=== PATIENT | female | born 1955 | race Caucasian/White ===

== ENCOUNTER → 2016-09-30 | Outpatient (CLI) | payer MEDICARE, MEDICAID ==
[~2016-09-30] MED LIST: ACET-789 PO; ALBU8.5H4 IH; ALBU8.5HRX IH; ARIP10TA2 PO; ARPZ30T PO; ASP81CT PO; BACL10TA PO; BACL20TA PO; BISA-65 PO; BPR150TCR PO; CEFD300C3 PO; CEPH500C PO; DEXL30CA2 PO; DEXL60CA5 PO; DOXY-233 PO; ESTR0.5T PO; ESTR1TAB24 PO; FINA5TAB6 PO; Fluticasone Propionate NS; GABA300C PO; GBPN300C PO; GFN600TCR PO; GUAI-653 PO; HCT25T PO; HYDR-2889 PO; LEVO75TA6 PO; LVT.025T PO; LVT.05T PO; Loratadine PO; MECL25TA56 PO; MELO-195 PO; METH4TAB PO; MONT10TA21 PO; Montelukast Sodium PO; NF-ESOM40C PO; PALI3TAB2 PO; POLY17PO23 GT; POLY17PO23 PO; PRD50T PO; Prednisone PO; QTP200T PO; QUET400T PO; QUET400T12 PO; SCR1T1 PO; SPIR50TA27 PO; SUCR1ORA PO; SUCR1TAB PO; SULF-222 PO; TRAM50TA2; ZINC50TA49 PO
[2016-09-30 16:36] LABS: CALCIUM 9.9 MG/DL (8.5-10.1); CREATININE SERUM 1.24 MG/DL (0.60-1.30); POTASSIUM 3.9 MMOL/L (3.6-5.0)
== END ==
LOC: LAB 16:05
PROVIDERS: ATTEND Internal Medicine Endocrinology, Diabetes & Metabolism
DX: E22.1 Hyperprolactinemia (principal)
CPT/HCPCS: 36415; 80048

== ENCOUNTER → 2016-10-27 | Outpatient (CLI) | payer MEDICARE, MEDICAID ==
[~2016-10-27] MED LIST changes: +GADOBUTROL 7.5 MMOL/7.5 ML (GADAVIST) VIAL IV ONE
--- NOTE | 2016-10-27 16:06 | Diagnostic Imaging Report ---
TECHNIQUE: Multiplanar, multisequence MRI of the brain performed without and with intravenous contrast with thin section through the pituitary gland and without intravenous contrast. INDICATION: Pituitary microadenoma. COMPARISON: 12/24/2015. 5 mL of Gadavist is administered intravenously. FINDINGS: There is no diffusion restriction to suggest an acute infarct or other diffusion abnormality. There is periventricular T2 hyperintense signal seen on FLAIR and T2-weighted images generally similar to 12/24/2015 exam with no associated mass effect or postcontrast enhancement suggestive of chronic microvascular ischemic changes. There is no hydrocephalus. No extra-axial fluid collection seen. The brainstem and cerebellum appear unremarkable. The internal auditory canals and inner ear structures appear symmetric. Thin images through the pituitary demonstrate normal size of the pituitary gland with no expansion of the sella turcica. The pituitary stalk is normal in caliber. The central vascular flow-voids appear grossly unremarkable. Although the pituitary gland is not enlarged and no evidence of macroadenoma is seen, there is convexity of its superior margin on both sides, particularly posteriorly with hypoenhancing foci measuring 5 mm such as seen on image 5, series 1302, similar to the previous exam. This could relate to small microadenomas. IMPRESSION: Similar to the prior exam, there is slight fullness along the sides of the pituitary gland posteriorly with associated hypoenhancement seen on the dynamic phase imaging suggestive of microadenomas. Dictated by: Dictated on workstation # [id number]
== END ==
LOC: RAD 13:50
PROVIDERS: ATTEND Internal Medicine Endocrinology, Diabetes & Metabolism
DX: D35.2 Benign neoplasm of pituitary gland (principal)
CPT/HCPCS: 70553

== ENCOUNTER 2016-12-08 07:15 | Emergency (ER) | payer MEDICARE, MEDICAID ==
[~2016-12-08] VITALS: Ht 162.6 cm; Wt 78.9 kg
[~2016-12-08 07:15] MED LIST changes: -GADOBUTROL 7.5 MMOL/7.5 ML (GADAVIST) VIAL IV ONE
[2016-12-08] MEDS ORDERED: LATUDA (07:47)
[2016-12-08] MEDS ORDERED: LIRA0.6P SQ (07:47)
[2016-12-08 07:51] LABS: BILIRUBIN,URINE NEGATIVE (NEGATIVE); KETONES,URINE NEGATIVE (NEGATIVE); LEUKOCYTE ESTERASE ,URINE NEGATIVE (NEGATIVE); NITRITE,URINE NEGATIVE (NEGATIVE); PH,URINE 8 (5-9); PROTEIN,URINE NEGATIVE (NEGATIVE); UROBILINOGEN,URINE NORMAL (NORMAL)
[2016-12-08 08:06] LABS: BASOPHILS % (AUTO) 0 % (0-10); EOSINOPHILS # (AUTO) 0.2 10^3/uL (0.0-0.3); EOSINOPHILS % (AUTO) 4 % (0-10); LYMPHOCYTES # (AUTO) 1.7 X 10^3 (1.0-4.0); LYMPHOCYTES % (AUTO) 30 % (12-44); MEAN CORPUSCULAR HEMOGLOBIN 32 PG (25-34); MEAN CORPUSCULAR HGB CONC 33 G/DL (32-36); MEAN CORPUSCULAR VOLUME 97 FL (80-99); MEAN PLATELET VOLUME 11.2 FL (7.4-10.4); MONOCYTES # (AUTO) 0.5 X 10^3 (0.0-1.0); MONOCYTES % (AUTO) 8 % (0-12); NEUTROPHILS # (AUTO) 3.4 X 10^3 (1.8-7.8); NEUTROPHILS % (AUTO) 58 % (42-75); PLATELET COUNT 154 10^3/uL (130-400); RED BLOOD COUNT 4.25 10^6/uL (4.35-5.85); RED CELL DISTRIBUTION WIDTH 13.7 % (10.0-14.5); WHITE BLOOD COUNT 5.8 10^3/uL (4.3-11.0)
[2016-12-08 08:28] LABS: ALBUMIN 4.1 GM/DL (3.2-4.5); BILIRUBIN,TOTAL 0.4 MG/DL (0.1-1.0); CALCIUM 8.8 MG/DL (8.5-10.1); CREATININE SERUM 1.09 MG/DL (0.60-1.30); TOTAL PROTEIN 6.6 GM/DL (6.4-8.2)
--- NOTE | 2016-12-08 09:19 | ED General ---
General Chief Complaint: General Problems/Pain Stated Complaint: WEAKNESS/SHAKEY/VOMITING 4 DAYS AGO/FATIGUE Nursing Triage Note: PT STATES SHE THINKS HER IS TRYING TO POISON HER. STATES SHE HAS NOT BEEN FEELING RIGHT FOR ABOUT 8 MONTHS, EVERY SO OFTEN SHE GETS SICK THROWING UP AND IS IN BED FOR DAYS. LATELY HER MIND IS SLIPPING AND SHE CANNOT PUT WORDS TOGETHER AND CANNNOT DO SIMPLE TASKS. Nursing Sepsis Screen: No Definite Risk Source of Information: Patient Exam Limitations: No Limitations History of Present Illness Time Seen by Provider: 09:14 Initial Comments The patient is a 61-year-old white female who reports that for the last 6-8 months she has been feeling apathetic, weak, shaky. She states that she has a difficult time getting up in the morning. She states that prior to this time she had normally got up at 430 or 5 o'clock and clean the house and was very active. She believes that her is trying to poison her. She saw Dr. Savage her psychiatrist at about the time the symptoms began. She did not tell him that she was having these problems. She takes a number of potent psychiatric medications. She states that there has been no change in her medications since well before the symptoms began. She also states that she had an MRI of the head last week. This turns out to have been done on October 27 and was a follow-up on a previous MRI which suggested a microadenoma of the pituitary gland. By my interpretation of the results it appears that it is still only a possible microadenoma and has not increased in size in the past year. Timing/Duration: Other (6-8 months) Associated Systoms: Malaise, Weakness Allergies and Home Medications Allergies Coded Allergies: cephalexin (Unverified Allergy, Unknown, 12/03/14) povidone-iodine (Unverified Allergy, Unknown, 07/15/10) soap (Unverified Allergy, Unknown, 07/15/10) Home Medications Acetaminophen With Codeine 1 Each Tablet, 1 TAB PO QID PRN for COUGH, (Reported) Bisacodyl 5 Mg Tablet., 5 MG PO BID, #6 Prescribed by: CHIQUITA ZAPATA on 12/10/14 1816 Bupropion Hcl 150 Mg Tablet, 1 TAB PO DAILY, #30 (Reported) Dexlansoprazole 60 Mg Cap, 60 MG PO DAILY, (Reported) Estradiol 1 Mg Tablet, 0.5 MG PO DAILY, (Reported) Gabapentin 300 Mg Cap, 900 MG PO HS, (Reported) take 3 (300 mg) capsules at bedtime Gabapentin 300 Mg Capsule, 1 EACH PO TID, (Reported) Levothyroxine Sodium 75 Mcg Tablet, 75 MCG PO DAILY, (Reported) Liraglutide 0.6 Mg/0.1 Ml Pen.injctr, 0.6 MG SQ, (Reported) Meloxicam 15 Mg Tablet, 15 MG PO BID, (Reported) Montelukast Sodium 10 Mg Tablet, 10 MG PO, (Reported) Paliperidone 3 Mg Tab.osm.24, 3 MG PO MONTHLY, (Reported) Polyethylene Glycol 17 Gm Pack, 17 GM PO DAILY, #0 Prescribed by: CATHERINE ROSS on 10/06/14 0131 Quetiapine Fumarate 400 Mg Tablet, 400 MG PO HS, (Reported) Sucralfate 1 G Tablet, 1 G PO QID, (Reported) Tramadol HCl 50 Mg Tablet, #30 (Reported) [Latuda] , (Reported) Constitutional: see HPI EENTM: no symptoms reported, other (dry mouth) Respiratory: no symptoms reported Cardiovascular: no symptoms reported Gastrointestinal: no symptoms reported Genitourinary: no symptoms reported Musculoskeletal: no symptoms reported Skin: no symptoms reported Psychiatric/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: See HPI, Depressed, Weakness Hematologic/Lymphatic: No Symptoms Reported Immunological/Allergic: no symptoms reported Past Mflvpav-Inueji-Vzvtms Hx Patient Social History Alcohol Use: Denies Use Recreational Drug Use: No Smoking Status: Current Everyday Smoker Type Used: Cigarettes Recent Foreign Travel: No Contact w/Someone Who Travel: No Recent Infectious Disease Expo: No Recent Hopitalizations: No Immunizations Up To Date Tetanus Booster (TDap): More than 5yrs Date of Pneumonia Vaccine: May 05, 2013 Date of Influenza Vaccine: Feb 02, 2014 Seasonal Allergies Seasonal Allergies: No Surgeries HX Surgeries: Yes Surgeries: Bladder Surgery, Breast, Hysterectomy Respiratory Hx Respiratory Disorders: Yes ("MIGHT HAVE COPD") Respiratory Disorders: COPD Cardiovascular Hx Cardiac Disorders: Yes Cardiac Disorders: Hypertension 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 Hx 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 Disorders: Yes (ELECTRICAL SHOCK TREATMENT ON BRAIN) 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 Genitourinary Hx Genitourinary Disorders: No Gastrointestinal Hx Gastrointestinal Disorders: Yes Gastrointestinal Disorders: Gastroesophageal Reflux, Chronic Constipation Musculoskeletal Hx Musculoskeletal Disorders: Yes Musculoskeletal Disorders: Fibromyalgia Endocrine Hx Endocrine Disorders: Yes Endocrine Disorders: Hypothyroidsim HEENT HX ENT Disorders: Yes HEENT Disorders: Cataract Cancer Hx Cancer: No Psychosocial Hx Psychiatric Problems: Yes Behavioral Health Disorders: Schizophrenia, Depression Integumentary HX Skin/Integumentary Disorder: No Blood Transfusions Hx Blood Disorders: No Family Medical History Significant Family History: No Pertinent Family Hx Family Medial History: CANCER G8 SISTER (DOESN'T KNOW WHAT TYPE OF CANCER) Diabetes mellitus 19 MOTHER STROKE G8 BROTHER Physical Exam Vital Signs Vital Sign - Last 12Hours 12/08/16 07:32 Temp 96.5 Pulse 106 Resp 18 B/P (MAP) 148/83 Pulse Ox 97 O2 Delivery Room Air Capillary Refill : Less Than 3 Seconds General Appearance: Other (flat affect) Eyes: Bilateral Eye Normal Inspection HEENT: Normal ENT Inspection, Other (dry shiny tongue which is bright red from red Marcus-Aid) Neck: Normal Inspection Respiratory: Chest Non Tender, Lungs Clear, Normal Breath Sounds, No Accessory Muscle Use, No Respiratory Distress Cardiovascular: Regular Rate, Rhythm, No Edema, No Gallop, No JVD, No Murmur, Normal Peripheral Pulses Gastrointestinal: Normal Bowel Sounds, No Organomegaly, No Pulsatile Mass, Non Tender, Soft Back: Normal Inspection, No CVA Tenderness, No Vertebral Tenderness Extremity: Normal Capillary Refill, Normal Inspection, Normal Range of Motion, Non Tender, No Calf Tenderness, No Pedal Edema Neurologic/Psychiatric: Alert, Oriented x3, No Motor/Sensory Deficits, Normal Mood/Affect Skin: Normal Color, Warm/Dry Lymphatic: No Adenopathy Progress/Results/Core Measures Results/Orders Lab Results Laboratory Tests Test 12/08/16 07:30 12/08/16 07:55 Range/Units Urine Color YELLOW Urine Clarity CLEAR Urine pH 8 5-9 Urine Specific [place] 1.010 L 1.016-1.022 Urine Protein NEGATIVE NEGATIVE Urine Glucose (UA) NEGATIVE NEGATIVE Urine Ketones NEGATIVE NEGATIVE Urine Nitrite NEGATIVE NEGATIVE Urine Bilirubin NEGATIVE NEGATIVE Urine Urobilinogen NORMAL NORMAL MG/DL Urine Leukocyte Esterase NEGATIVE NEGATIVE Urine RBC (Auto) NEGATIVE NEGATIVE Urine RBC NONE /HPF Urine WBC NONE /HPF Urine Squamous Epithelial Cells 10-25 H /HPF Urine Crystals NONE /LPF Urine Bacteria TRACE /HPF Urine Casts NONE /LPF Urine Mucus NEGATIVE /LPF Urine Culture Indicated NO Urine Opiates Screen NEGATIVE NEGATIVE Urine Oxycodone Screen NEGATIVE NEGATIVE Urine Methadone Screen NEGATIVE NEGATIVE Urine Propoxyphene Screen NEGATIVE NEGATIVE Urine Barbiturates Screen NEGATIVE NEGATIVE Ur Tricyclic Antidepressants Screen POSITIVE H NEGATIVE Urine Phencyclidine Screen NEGATIVE NEGATIVE Urine Amphetamines Screen NEGATIVE NEGATIVE Urine Methamphetamines Screen NEGATIVE NEGATIVE Urine Benzodiazepines Screen NEGATIVE NEGATIVE Urine Cocaine Screen NEGATIVE NEGATIVE Urine Cannabinoids Screen NEGATIVE NEGATIVE White Blood Count 5.8 4.3-11.0 10^3/uL Red Blood Count 4.25 L 4.35-5.85 10^6/uL Hemoglobin 13.7 11.5-16.0 G/DL Hematocrit 41 35-52 % Mean Corpuscular Volume 97 80-99 FL Mean Corpuscular Hemoglobin 32 25-34 PG Mean Corpuscular Hemoglobin Concent 33 32-36 G/DL Red Cell Distribution Width 13.7 10.0-14.5 % Platelet Count 154 130-400 10^3/uL Mean Platelet Volume 11.2 H 7.4-10.4 FL Neutrophils (%) (Auto) 58 42-75 % Lymphocytes (%) (Auto) 30 12-44 % Monocytes (%) (Auto) 8 0-12 % Eosinophils (%) (Auto) 4 0-10 % Basophils (%) (Auto) 0 0-10 % Neutrophils # (Auto) 3.4 1.8-7.8 X 10^3 Lymphocytes # (Auto) 1.7 1.0-4.0 X 10^3 Monocytes # (Auto) 0.5 0.0-1.0 X 10^3 Eosinophils # (Auto) 0.2 0.0-0.3 10^3/uL Basophils # (Auto) 0.0 0.0-0.1 10^3/uL Sodium Level 137 135-145 MMOL/L Potassium Level 4.0 3.6-5.0 MMOL/L Chloride Level 101 98-107 MMOL/L Carbon Dioxide Level 24 21-32 MMOL/L Anion Gap 12 5-14 MMOL/L Blood Urea Nitrogen 10 7-18 MG/DL Creatinine 1.09 0.60-1.30 MG/DL Estimat Glomerular Filtration Rate 51 BUN/Creatinine Ratio 9 Glucose Level 90 70-105 MG/DL Calcium Level 8.8 8.5-10.1 MG/DL Total Bilirubin 0.4 0.1-1.0 MG/DL Aspartate Amino Transf (AST/SGOT) 26 5-34 U/L Alanine Aminotransferase (ALT/SGPT) 23 0-55 U/L Alkaline Phosphatase 78 40-136 U/L Total Protein 6.6 6.4-8.2 GM/DL Albumin 4.1 3.2-4.5 GM/DL My Orders Orders - HUSSAIN WEBBER MD Cbc With Automated Diff (12/08/16 07:27) Comprehensive Metabolic Panel (12/08/16 07:27) Ua Culture If Indicated (12/08/16 07:27) Drug Screen Stat (Urine) (12/08/16 08:01) Vital Signs/I&O Vital Sign - Last 12Hours 12/08/16 07:32 Temp 96.5 Pulse 106 Resp 18 B/P (MAP) 148/83 Pulse Ox 97 O2 Delivery Room Air Blood Pressure Mean: 104 Departure Communication Progress Notes Attempted to find someone to discuss today's problems and or have her be seen at mental health. There were no providers available. I then called Dr. Frank who allowed that she had been there last week and that he felt that the her schizophrenia may be uncontrolled again. This would seem to be likely by my discussion as well. Impression Impression: Primary Impression: mental health disorder Disposition: 01 HOME, SELF-CARE Condition: Stable/Unchanged Departure-Patient Inst. Decision time for Depature: 09:37 Referrals: JOHN FRANK DO (PCP/Family) Primary Care Physician Add. Discharge Instructions: All discharge instructions reviewed with patient and/or family. Voiced understanding. Call Dr. Frank's office to schedule a follow-up for next week. HUSSAIN WEBBER MD Dec 08, 2016 09:19
[2016-12-08 09:53] VITALS: BP 148/83
== END 2016-12-08 09:52 | disposition home or self-care (01) ==
LOC: EDUNIT# 07:15 → ER 07:20
DX: F99 Mental disorder, not otherwise specified (principal); K21.9 Gastro-esophageal reflux disease without esophagitis; M79.7 Fibromyalgia; E03.9 Hypothyroidism, unspecified; F17.210 Nicotine dependence, cigarettes, uncomplicated; Z79.899 Other long term (current) drug therapy
CPT/HCPCS: 36415; 80053; 80306; 81000; 85025; 99283

== ENCOUNTER 2017-06-19 10:58 | Emergency (ER) | payer MEDICARE, MEDICAID ==
[~2017-06-19] VITALS: Ht 160 cm; Wt 77.1 kg
[~2017-06-19 10:58] MED LIST changes: +LATUDA; +LIRA0.6P SQ
--- OUTSIDE RECORDS SUMMARY | 2017-06-19 11:07 | XMS REPORT | Continuity of Care Document ---
Author Author [facility] Organization [facility] Address Unknown Phone Unavailable Allergies Active Description Code Type Severity Reaction Onset Reported/Identified Relationship to Patient Clinical Status Yes povidone-iodine [id number] Drug Allergy Unknown N/A 07/15/2010 Yes Soap [id number] Drug Allergy Unknown N/A 07/15/2010 Yes cephalexin [id number] Drug Allergy Unknown N/A 12/03/2014 Medications There is no data. Problems Date Dx Coded Attending Type Code Diagnosis Diagnosed By 02/10/2012 Ot 780.50 02/10/2012 Ot 786.09 05/03/2012 Ot 719.45 05/03/2012 Ot 719.46 05/03/2012 Ot 723.1 05/03/2012 Ot V57.1 05/30/2012 Ot 719.45 05/30/2012 Ot 719.46 05/30/2012 Ot 723.1 05/30/2012 Ot V57.1 01/27/2013 JOHN FRANK DO Ot 244.9 01/27/2013 JOHN FRANK DO Ot 295.90 01/27/2013 JOHN FRANK DO Ot 305.1 01/27/2013 JOHN FRANK DO Ot 311 01/27/2013 JOHN FRANK DO Ot 401.9 01/27/2013 FRANKJOHN TORRES DO Ot 530.81 01/27/2013 FRANKJOHN TORRES DO Ot 729.1 01/27/2013 JOHN FRANK DO Ot 786.50 01/27/2013 JOHN FRANK DO Ot 911.4 01/27/2013 JOHN FRANK DO Ot E906.4 01/27/2013 JOHN FRANK DO Ot V04.81 04/08/2013 AYANNA SARKAR Ot 883.0 04/08/2013 AYANNA SARKAR Ot E000.8 04/08/2013 AYANNA SARKAR Ot E849.0 04/08/2013 AYANNA SARKAR Ot E920.8 04/08/2013 AYANNA SARKAR Ot V06.1 10/31/2013 FRANKJOHN TORRES DO Ot 799.3 10/31/2013 FRANK DO JOHN Prather Ot V57.1 03/26/2014 FRANK DO JOHN Yamilka Ot 786.09 06/03/2014 ALAN DO, TATA K Ot 276.51 06/03/2014 ALAN DO, TATA K Ot 276.9 06/03/2014 ALAN DO, TATA K Ot 491.21 06/03/2014 ALAN DO, TATA K Ot 593.9 06/03/2014 ALAN DO, TATA K Ot 786.2 06/03/2014 ALAN DO, TATA K Ot 977.9 06/03/2014 ALAN DO, TATA K Ot E849.0 06/03/2014 ALAN DO, TATA K Ot E858.9 07/23/2014 FRANK DO JOHN Prather Ot 780.09 07/23/2014 FRANK DO JOHN Yamilka Ot 794.09 07/23/2014 FRANK DO JOHN Yamilka Ot V76.12 07/23/2014 PARISH VALENCIA FACNAVIN FACP CCDS Ot 786.50 07/23/2014 YOSEF MOSLEY HEAVY FORGER HELPER Ot 786.2 07/23/2014 YOSEF MOSLEY HEAVY FORGER HELPER Ot 786.50 07/23/2014 FRANKBRIAN ARCHER JOHN Yamilka Ot V76.12 07/23/2014 FRANK JOHN ARCHER Ot 780.2 07/23/2014 FRANKJOHN PATRICIA DO Ot 786.09 08/05/2014 MILES VALENCIA, SHELIA Wright Ot 596.89 08/05/2014 MILES VALENCIA, SHELIA Wright Ot 789.09 08/27/2014 YOSEF FRANK 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 Ot 786.09 08/27/2014 MILES VALENCIA, SHELIA Wright Ot 596.89 08/27/2014 MILES VALENCIA, SHELIA Wright Ot 789.09 09/03/2014 MILES VALENCIA, SHELIA Wright Ot 789.09 09/03/2014 YOSEF FRANK 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 Ot 786.09 09/19/2014 MILES VALENCIA, SHELIA Wright Ot 789.09 10/10/2014 MILES VALENCIA, SHELIA Wright Ot 596.89 10/10/2014 SHELIA AQUINO MD Ot 789.09 10/12/2014 FRANK DO, JOHN Yamilka Ot 244.9 10/12/2014 FRANK DO, JOHN Yamilka Ot 276.1 10/12/2014 FRANK DO, JOHN Yamilka Ot 295.90 10/12/2014 FRANK DO, JOHN Prather Ot 296.80 10/12/2014 FRANK DO, JOHN Yamilka Ot 305.1 10/12/2014 FRANK DO, JOHN Yamilka Ot 401.9 10/12/2014 FRANK DO, JOHN Yamilka Ot 493.22 10/12/2014 FRANK DO, JOHN Prather Ot 518.0 10/12/2014 FRANK DO, JOHN Prather Ot 518.81 10/12/2014 FRANK DO, JOHN Prather Ot 519.19 10/12/2014 FRANK DO, JOHN Yamilka Ot 530.81 10/12/2014 FRANK DO, JOHN Yamilka Ot 729.1 10/12/2014 FRANK DO JOHN Prather Ot 780.4 10/12/2014 FRANK DO JOHN Yamilka Ot E942.6 10/12/2014 FRANK DO JOHN Yamilka Ot V07.4 10/28/2014 MILES VALENCIA, SHELIA Wright Ot 596.89 10/28/2014 SHELIA AQUINO MD Ot 789.09 10/28/2014 YOSEF FRANK 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 Ot 786.09 12/03/2014 RAYA CEBALLOS MD Ot 530.11 12/03/2014 RAYA CEBALLOS MD Ot 535.50 12/03/2014 RAYA CEBALLOS MD Ot 553.3 12/10/2014 CHIQUITA ZAPATA HEAVY FORGER HELPER Ot 535.50 12/10/2014 CHIQUITA ZAPATA HEAVY FORGER HELPER Ot 564.00 12/10/2014 CHIQUITA ZAPATA HEAVY FORGER HELPER Ot 789.00 01/06/2015 FRANK DOJOHN Ot 305.1 01/06/2015 FRANK DOJOHN Ot 786.09 01/06/2015 ZAC ARCHER JOHN Yamilka Ot V76.12 01/13/2015 FRANK JOHN Yamilka Ot 305.1 01/13/2015 ZAC ARCHER JOHN Yamilka Ot 786.09 01/13/2015 ZAC ARCHER JOHN Yamilka Ot V76.12 02/09/2015 JAILYN FRANKRICIA L 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 Ot 722.4 02/09/2015 FRANK, YOSEF L 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 Ot 790.29 02/09/2015 FRANK, YOSEF L 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 Ot V58.69 02/09/2015 FRANK, YOSEF L 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 Ot 722.92 02/09/2015 FRANK YOSEF L 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 Ot 722.4 02/09/2015 FRANK, YOSEF L 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 Ot 790.29 02/09/2015 FRANK, YOSEF L 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 Ot V58.69 02/09/2015 FRANK, YOSEF L 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 Ot 722.92 02/11/2015 FRANK, YOSEF L 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 Ot 722.4 02/11/2015 FRANK, YOSEF L 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 Ot 790.29 02/11/2015 FRANK, YOSEF L 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 Ot V58.69 02/23/2015 FRANK, YOSEF L 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 Ot 722.92 03/05/2015 FRANK, YOSEF L 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 Ot 722.92 03/05/2015 ZAC ARCHER JOHN Yamilka Ot R10.9 03/16/2015 JOHN FRANK DO Ot R10.9 04/06/2015 FRANK, YOSEF L 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 Ot 722.4 04/06/2015 FRANK, YOSEF L 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 Ot 790.29 04/06/2015 FRANK, YOSEF L 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 Ot V58.69 12/02/2015 ALEJANDRA VALENCIA, MEGAN Mcelroy Ot R10.2 PELVIC AND PERINEAL PAIN 12/02/2015 ALEJANDRA VALENCIA, MEGAN Mcelroy Ot Z85.41 PERSONAL HISTORY OF MALIGNANT NEOPLASM O 12/03/2015 ALEJANDRA VALENCIA, MEGAN Mcelroy Ot R10.2 PELVIC AND PERINEAL PAIN 12/03/2015 ALEJANDRA VALENCIA, MEGAN Mcelroy Ot Z85.41 PERSONAL HISTORY OF MALIGNANT NEOPLASM O 12/24/2015 YOSEF FRANK 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 Ot 722.4 CERVICAL DISC DEGEN 12/24/2015 YOSEF FRANK 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 Ot 790.29 OTHER ABNORMAL GLUCOSE 12/24/2015 YOSEF FRANK 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 Ot V58.69 OTH MED,LT,CURRENT USE 12/24/2015 YOSEF FRANK 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 Ot 722.92 DISC DIS NEC/NOS-THORAC 12/24/2015 JOHN FRANK DO Ot R10.9 UNSPECIFIED ABDOMINAL PAIN 01/15/2016 JOHN FRANK DO Ot 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, UNSPEC 02/01/2016 JOHN FRANK DO Ot 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, UNSPEC 03/31/2016 YOSEF FRANK 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 Ot 722.4 CERVICAL DISC DEGEN 03/31/2016 YOSEF FRANK 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 Ot 790.29 OTHER ABNORMAL GLUCOSE 03/31/2016 YOSEF FRANK 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 Ot V58.69 OTH MED,LT,CURRENT USE 03/31/2016 YOSEF FRANK 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 Ot 722.92 DISC DIS NEC/NOS-THORAC 03/31/2016 JOHN FRANK DO Ot R10.9 UNSPECIFIED ABDOMINAL PAIN 03/31/2016 JOHN FRANK DO Ot 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, UNSPEC 03/31/2016 ALEJANDRA VALENCIA, MEGAN Mcelroy Ot I10 ESSENTIAL (PRIMARY) HYPERTENSION 03/31/2016 ALEJANDRA VALENCIA, MEGAN Mcelroy Ot K59.00 CONSTIPATION, UNSPECIFIED 03/31/2016 ALEJANDRA VALENCIA, MEGAN Mcelroy Ot R10.12 LEFT UPPER QUADRANT PAIN 03/31/2016 ALEJANDRA VALENCIA, MEGAN Mcelroy Ot Z79.899 OTHER USP (CURRENT) DRUG THERAPY 03/31/2016 YOSEF FRANK 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 Ot 722.4 CERVICAL DISC DEGEN 03/31/2016 YOSEF FRANK 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 Ot 790.29 OTHER ABNORMAL GLUCOSE 03/31/2016 YOSEF FRANK 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 Ot V58.69 OTH MED,LT,CURRENT USE 03/31/2016 YOSEF FRANK 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 Ot 722.92 DISC DIS NEC/NOS-THORAC 03/31/2016 JOHN FRANK DO Ot R10.9 UNSPECIFIED ABDOMINAL PAIN 03/31/2016 JOHN FRANK DO Ot 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, UNSPEC 04/01/2016 ALEJANDRA VALENCIA, MEGAN T Ot I10 ESSENTIAL (PRIMARY) HYPERTENSION 04/01/2016 ALEJANDRA VALENCIA, MEGAN T Ot K59.00 CONSTIPATION, UNSPECIFIED 04/01/2016 ALEJANDRA VALENCIA, MEGAN T Ot R10.12 LEFT UPPER QUADRANT PAIN 04/01/2016 ALEJANDRA VALENCIA, MEGAN T Ot Z79.899 OTHER PROPERTY SPECIALIST (CURRENT) DRUG THERAPY 04/06/2016 EMGAN ROBERTS MD T Ot I10 ESSENTIAL (PRIMARY) HYPERTENSION 04/06/2016 ALEJANDRA VALENCIA, MEGAN T Ot K59.00 CONSTIPATION, UNSPECIFIED 04/06/2016 ALEJANDRA VALENCIA, MEGAN T Ot R10.12 LEFT UPPER QUADRANT PAIN 04/06/2016 ALEJANDRA VALENCIA, MEGAN T Ot Z79.899 OTHER PROPERTY SPECIALIST (CURRENT) DRUG THERAPY 05/09/2016 YOSEF FRANK 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 Ot 722.4 CERVICAL DISC DEGEN 05/09/2016 YOSEF FRANK 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 Ot 790.29 OTHER ABNORMAL GLUCOSE 05/09/2016 YOSEF FRANK 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 Ot V58.69 OTH MED,LT,CURRENT USE 05/09/2016 YOSEF FRANK 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 Ot 722.92 DISC DIS NEC/NOS-THORAC 05/09/2016 JOHN FRANK DO Ot R10.9 UNSPECIFIED ABDOMINAL PAIN 05/09/2016 JOHN FRANK DO Ot 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, UNSPEC 05/09/2016 YOSEF FRANK 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 Ot 722.4 CERVICAL DISC DEGEN 05/09/2016 YOSEF FRANK 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 Ot 790.29 OTHER ABNORMAL GLUCOSE 05/09/2016 YOSEF FRANK 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 Ot V58.69 OTH MED,LT,CURRENT USE 05/09/2016 YOSEF FRANK 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 Ot 722.92 DISC DIS NEC/NOS-THORAC 05/09/2016 JOHN FRANK DO Ot R10.9 UNSPECIFIED ABDOMINAL PAIN 05/09/2016 JOHN FRANK DO Ot 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, UNSPEC 05/17/2016 YOSEF FRANK 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 Ot 722.4 CERVICAL DISC DEGEN 05/17/2016 YOSEF FRANK 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 Ot 790.29 OTHER ABNORMAL GLUCOSE 05/17/2016 FRANKYOSEF PATRICIA 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 Ot V58.69 OTH MED,LT,CURRENT USE 05/17/2016 FRANKYOSEF PATRICIA 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 Ot 722.92 DISC DIS NEC/NOS-THORAC 05/17/2016 JOHN FRANK DO Ot R10.9 UNSPECIFIED ABDOMINAL PAIN 05/17/2016 JOHN FRANK DO Ot 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, UNSPEC 10/05/2016 JOHN FRANK DO Ot Z12.31 ENCNTR SCREEN MAMMOGRAM FOR MALIGNANT NE 10/06/2016 JOHN FRANK DO Ot Z12.31 ENCNTR SCREEN MAMMOGRAM FOR MALIGNANT NE 10/25/2016 ARMANI ARCHER, LEON L Ot 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 11/02/2016 LOMELI DO, LEON L Ot D35.2 BENIGN NEOPLASM OF PITUITARY GLAND 11/02/2016 LOMELI DO, LEON L Ot D35.2 BENIGN NEOPLASM OF PITUITARY GLAND 11/02/2016 LOMELI DO, LEON L Ot D35.2 BENIGN NEOPLASM OF PITUITARY GLAND 11/02/2016 LOMELI DO, LEON L Ot D35.2 BENIGN NEOPLASM OF PITUITARY GLAND 11/02/2016 LOMELI DO, LEON L Ot D35.2 BENIGN NEOPLASM OF PITUITARY GLAND 11/02/2016 LOMELI DO, LEON L Ot D35.2 BENIGN NEOPLASM OF PITUITARY GLAND 11/04/2016 LOMELI DO, LEON L Ot 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 11/18/2016 LOMELI DO, LEON L Ot D35.2 BENIGN NEOPLASM OF PITUITARY GLAND 12/02/2016 LOMELI DO, LEON L Ot D35.2 BENIGN NEOPLASM OF PITUITARY GLAND 12/08/2016 YOSEF FRANK 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 Ot 722.4 CERVICAL DISC DEGEN 12/08/2016 YOSEF FRANK 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 Ot 790.29 OTHER ABNORMAL GLUCOSE 12/08/2016 YOSEF FRANK 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 Ot V58.69 OT MED,LT,CURRENT USE 12/08/2016 YOSEF FRANK 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 Ot 722.92 DISC DIS NEC/NOS-THORAC 12/08/2016 JONH FRANK DO Ot R10.9 UNSPECIFIED ABDOMINAL PAIN 12/08/2016 JOHN FRANK DO Ot 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, UNSPEC 12/08/2016 LEON LOMELI DO Ot 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 12/08/2016 LEON LOMELI DO Ot D35.2 BENIGN NEOPLASM OF PITUITARY GLAND 12/08/2016 HUSSAIN WEBBER MD Ot E03.9 HYPOTHYROIDISM, UNSPECIFIED 12/08/2016 HUSSAIN WEBBER MD Ot F17.210 NICOTINE DEPENDENCE, CIGARETTES, UNCOMPL 12/08/2016 HUSSAIN WEBBER MD Ot F99 MENTAL DISORDER, NOT OTHERWISE SPECIFIED 12/08/2016 HUSSAIN WEBBER MD Ot K21.9 GASTRO-ESOPHAGEAL REFLUX DISEASE WITHOUT 12/08/2016 HUSSAIN WEBBER MD Ot M79.7 FIBROMYALGIA 12/08/2016 HUSSAIN WEBBER MD Ot R53.1 WEAKNESS 12/08/2016 HUSSAIN WEBBER MD Ot Z79.899 OTHER USP (CURRENT) DRUG THERAPY Procedures There is no data. Results Test Result Range Complete urinalysis with reflex to culture - 12/02/15 16:20 Urine color determination YELLOW NRG Urine clarity determination CLEAR NRG Urine pH measurement by test strip 6.5 5-9 Specific gravity of urine by test strip 1.010 1.016- 1.022 Urine protein assay by test strip, semi-quantitative NEGATIVE NEGATIVE Urine glucose detection by automated test strip NEGATIVE NEGATIVE Erythrocytes detection in urine sediment by light microscopy NEGATIVE NEGATIVE Urine ketones detection by automated test strip NEGATIVE NEGATIVE Urine nitrite detection by test strip NEGATIVE NEGATIVE Urine total bilirubin detection by test strip NEGATIVE NEGATIVE Urine urobilinogen measurement by automated test strip (mass/volume) NORMAL NORMAL Urine leukocyte esterase detection by dipstick NEGATIVE NEGATIVE Automated urine sediment erythrocyte count by microscopy (number/high power field) NONE NRG Automated urine sediment leukocyte count by microscopy (number/high power field ) NONE NRG Bacteria detection in urine sediment by light microscopy NONE NRG Squamous epithelial cells detection in urine sediment by light microscopy 2-5 NRG Crystals detection in urine sediment by light microscopy NONE NRG Casts detection in urine sediment by light microscopy NONE NRG Mucus detection in urine sediment by light microscopy NEGATIVE NRG Complete urinalysis with reflex to culture NO NRG Complete urinalysis with reflex to culture - 03/31/16 16:06 Urine color determination YELLOW NRG Urine clarity determination CLEAR NRG Urine pH measurement by test strip 7 5-9 Specific gravity of urine by test strip 1.010 1.016- 1.022 Urine protein assay by test strip, semi-quantitative NEGATIVE NEGATIVE Urine glucose detection by automated test strip NEGATIVE NEGATIVE Erythrocytes detection in urine sediment by light microscopy NEGATIVE NEGATIVE Urine ketones detection by automated test strip NEGATIVE NEGATIVE Urine nitrite detection by test strip NEGATIVE NEGATIVE Urine total bilirubin detection by test strip NEGATIVE NEGATIVE Urine urobilinogen measurement by automated test strip (mass/volume) NORMAL NORMAL Urine leukocyte esterase detection by dipstick NEGATIVE NEGATIVE Automated urine sediment erythrocyte count by microscopy (number/high power field) NONE NRG Automated urine sediment leukocyte count by microscopy (number/high power field ) NONE NRG Bacteria detection in urine sediment by light microscopy FEW NRG Squamous epithelial cells detection in urine sediment by light microscopy 2-5 NRG Crystals detection in urine sediment by light microscopy NONE NRG Casts detection in urine sediment by light microscopy NONE NRG Mucus detection in urine sediment by light microscopy NEGATIVE NRG Complete urinalysis with reflex to culture NO NRG Complete blood count (CBC) with automated white blood cell (WBC) differential - 03/31/16 16:21 Blood leukocytes automated count (number/volume) 5.3 10*3/uL 4.3-11.0 Blood erythrocytes automated count (number/volume) 4.10 10*6/uL 4.35-5.85 Venous blood hemoglobin measurement (mass/volume) 13.1 g/dL 11.5-16.0 Blood hematocrit (volume fraction) 38 % 35-52 Automated erythrocyte mean corpuscular volume 93 [foz_us] 80-99 Automated erythrocyte mean corpuscular hemoglobin (mass per erythrocyte) 32 pg 25-34 Automated erythrocyte mean corpuscular hemoglobin concentration measurement ( mass/volume) 34 g/dL 32-36 Automated erythrocyte distribution width ratio 13.0 % 10.0-14.5 Automated blood platelet count (count/volume) 171 10*3/uL 130-400 Automated blood platelet mean volume measurement 10.7 [foz_us] 7.4-10.4 Automated blood neutrophils/100 leukocytes 55 % 42-75 Automated blood lymphocytes/100 leukocytes 33 % 12-44 Blood monocytes/100 leukocytes 8 % 0-12 Automated blood eosinophils/100 leukocytes 4 % 0-10 Automated blood basophils/100 leukocytes 0 % 0-10 Blood neutrophils automated count (number/volume) 2.9 10*3 1.8-7.8 Blood lymphocytes automated count (number/volume) 1.8 10*3 1.0-4.0 Blood monocytes automated count (number/volume) 0.4 10*3 0.0-1.0 Automated eosinophil count 0.2 10*3/uL 0.0-0.3 Automated blood basophil count (count/volume) 0.0 10*3/uL 0.0-0.1 Comprehensive metabolic panel - 03/31/16 16:21 Serum or plasma sodium measurement (moles/volume) 133 mmol/L 135-145 Serum or plasma potassium measurement (moles/volume) 3.9 mmol/L 3.6-5.0 Serum or plasma chloride measurement (moles/volume) 98 mmol/L 98-107 Carbon dioxide 24 mmol/L 21-32 Serum or plasma anion gap determination (moles/volume) 11 mmol/L 5-14 Serum or plasma urea nitrogen measurement (mass/volume) 16 mg/dL 7-18 Serum or plasma creatinine measurement (mass/volume) 1.10 mg/dL 0.60-1.30 Serum or plasma urea nitrogen/creatinine mass ratio 15 NRG Serum or plasma creatinine measurement with calculation of estimated glomerular filtration rate 51 NRG Serum or plasma glucose measurement (mass/volume) 92 mg/dL 70-105 Serum or plasma calcium measurement (mass/volume) 9.4 mg/dL 8.5-10.1 Serum or plasma total bilirubin measurement (mass/volume) 0.4 mg/dL 0.1-1.0 Serum or plasma alkaline phosphatase measurement (enzymatic activity/volume) 68 U/L 40-136 Serum or plasma aspartate aminotransferase measurement (enzymatic activity/ volume) 45 U/L 5-34 Serum or plasma alanine aminotransferase measurement (enzymatic activity/volume ) 29 U/L 0-55 Serum or plasma protein measurement (mass/volume) 6.9 g/dL 6.4-8.2 Serum or plasma albumin measurement (mass/volume) 4.3 g/dL 3.2-4.5 Magnesium - 03/31/16 16:21 Magnesium 1.9 mg/dL 1.8-2.4 THYROID STIMULATING HORMONE - 03/31/16 16:21 THYROID STIMULATING HORMONE 3.88 u[iU]/mL 0.35-4.94 Serum or plasma thyroxine (T4) free measurement (mass/volume) - 03/31/16 16:21 Serum or plasma thyroxine (T4) free measurement (mass/volume) 0.68 ng/dL 0.70-1.48 Serum or plasma C reactive protein measurement (mass/volume) - 03/31/16 16:21 Serum or plasma C reactive protein measurement (mass/volume) 1.45 mg /dL 0.00-0.50 Whole blood basic metabolic panel - 09/30/16 16:14 Serum or plasma sodium measurement (moles/volume) 137 mmol/L 135-145 Serum or plasma potassium measurement (moles/volume) 3.9 mmol/L 3.6-5.0 Serum or plasma chloride measurement (moles/volume) 100 mmol/L 98-107 Carbon dioxide 25 mmol/L 21-32 Serum or plasma anion gap determination (moles/volume) 12 mmol/L 5-14 Serum or plasma urea nitrogen measurement (mass/volume) 11 mg/dL 7-18 Serum or plasma creatinine measurement (mass/volume) 1.24 mg/dL 0.60-1.30 Serum or plasma urea nitrogen/creatinine mass ratio 9 NRG Serum or plasma creatinine measurement with calculation of estimated glomerular filtration rate 44 NRG Serum or plasma glucose measurement (mass/volume) 81 mg/dL 70-105 Serum or plasma calcium measurement (mass/volume) 9.9 mg/dL 8.5-10.1 Complete urinalysis with reflex to culture - 12/08/16 07:30 Urine color determination YELLOW NRG Urine clarity determination CLEAR NRG Urine pH measurement by test strip 8 5-9 Specific gravity of urine by test strip 1.010 1.016- 1.022 Urine protein assay by test strip, semi-quantitative NEGATIVE NEGATIVE Urine glucose detection by automated test strip NEGATIVE NEGATIVE Erythrocytes detection in urine sediment by light microscopy NEGATIVE NEGATIVE Urine ketones detection by automated test strip NEGATIVE NEGATIVE Urine nitrite detection by test strip NEGATIVE NEGATIVE Urine total bilirubin detection by test strip NEGATIVE NEGATIVE Urine urobilinogen measurement by automated test strip (mass/volume) NORMAL NORMAL Urine leukocyte esterase detection by dipstick NEGATIVE NEGATIVE Automated urine sediment erythrocyte count by microscopy (number/high power field) NONE NRG Automated urine sediment leukocyte count by microscopy (number/high power field ) NONE NRG Bacteria detection in urine sediment by light microscopy TRACE NRG Squamous epithelial cells detection in urine sediment by light microscopy 1025 NRG Crystals detection in urine sediment by light microscopy NONE NRG Casts detection in urine sediment by light microscopy NONE NRG Mucus detection in urine sediment by light microscopy NEGATIVE NRG Complete urinalysis with reflex to culture NO NRG Urine drug screening test - 12/08/16 07:30 Urine phencyclidine detection by screening method NEGATIVE NEGATIVE Urine benzodiazepines detection by screening method NEGATIVE NEGATIVE Urine cocaine detection NEGATIVE NEGATIVE Urine amphetamines detection by screening method NEGATIVE NEGATIVE Urine methamphetamine detection by screening method NEGATIVE NEGATIVE Urine cannabinoids detection by screening method NEGATIVE NEGATIVE Urine opiates detection by screening method NEGATIVE NEGATIVE Urine barbiturates detection NEGATIVE NEGATIVE Screening urine tricyclic antidepressants detection POSITIVE NEGATIVE Urine methadone detection by screening method NEGATIVE NEGATIVE Urine oxycodone detection NEGATIVE NEGATIVE Urine propoxyphene detection NEGATIVE NEGATIVE Complete blood count (CBC) with automated white blood cell (WBC) differential - 12/08/16 07:55 Blood leukocytes automated count (number/volume) 5.8 10*3/uL 4.3-11.0 Blood erythrocytes automated count (number/volume) 4.25 10*6/uL 4.35-5.85 Venous blood hemoglobin measurement (mass/volume) 13.7 g/dL 11.5-16.0 Blood hematocrit (volume fraction) 41 % 35-52 Automated erythrocyte mean corpuscular volume 97 [foz_us] 80-99 Automated erythrocyte mean corpuscular hemoglobin (mass per erythrocyte) 32 pg 25-34 Automated erythrocyte mean corpuscular hemoglobin concentration measurement ( mass/volume) 33 g/dL 32-36 Automated erythrocyte distribution width ratio 13.7 % 10.0-14.5 Automated blood platelet count (count/volume) 154 10*3/uL 130-400 Automated blood platelet mean volume measurement 11.2 [foz_us] 7.4-10.4 Automated blood neutrophils/100 leukocytes 58 % 42-75 Automated blood lymphocytes/100 leukocytes 30 % 12-44 Blood monocytes/100 leukocytes 8 % 0-12 Automated blood eosinophils/100 leukocytes 4 % 0-10 Automated blood basophils/100 leukocytes 0 % 0-10 Blood neutrophils automated count (number/volume) 3.4 10*3 1.8-7.8 Blood lymphocytes automated count (number/volume) 1.7 10*3 1.0-4.0 Blood monocytes automated count (number/volume) 0.5 10*3 0.0-1.0 Automated eosinophil count 0.2 10*3/uL 0.0-0.3 Automated blood basophil count (count/volume) 0.0 10*3/uL 0.0-0.1 Comprehensive metabolic panel - 12/08/16 07:55 Serum or plasma sodium measurement (moles/volume) 137 mmol/L 135-145 Serum or plasma potassium measurement (moles/volume) 4.0 mmol/L 3.6-5.0 Serum or plasma chloride measurement (moles/volume) 101 mmol/L 98-107 Carbon dioxide 24 mmol/L 21-32 Serum or plasma anion gap determination (moles/volume) 12 mmol/L 5-14 Serum or plasma urea nitrogen measurement (mass/volume) 10 mg/dL 7-18 Serum or plasma creatinine measurement (mass/volume) 1.09 mg/dL 0.60-1.30 Serum or plasma urea nitrogen/creatinine mass ratio 9 NRG Serum or plasma creatinine measurement with calculation of estimated glomerular filtration rate 51 NRG Serum or plasma glucose measurement (mass/volume) 90 mg/dL 70-105 Serum or plasma calcium measurement (mass/volume) 8.8 mg/dL 8.5-10.1 Serum or plasma total bilirubin measurement (mass/volume) 0.4 mg/dL 0.1-1.0 Serum or plasma alkaline phosphatase measurement (enzymatic activity/volume) 78 U/L 40-136 Serum or plasma aspartate aminotransferase measurement (enzymatic activity/ volume) 26 U/L 5-34 Serum or plasma alanine aminotransferase measurement (enzymatic activity/volume ) 23 U/L 0-55 Serum or plasma protein measurement (mass/volume) 6.6 g/dL 6.4-8.2 Serum or plasma albumin measurement (mass/volume) 4.1 g/dL 3.2-4.5 Encounters ACCT No. Visit Date/Time Discharge Status Pt. 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 [id number] 10/06/2016 13:45:00 10/06/2016 23:59:59 CLS Preadmit JOHN FRANK DO [facility] RAD SCREENING [id number] 09/30/2016 16:05:00 09/30/2016 23:59:59 CLS Outpatient LEON LOMELI DO [facility] LAB 253.1 [id number] 05/20/2016 09:30:00 05/20/2016 23:59:59 CLS Preadmit LEON LOMELI DO [facility] RAD PITUITARY ADENOMA [id number] 03/31/2016 15:32:00 03/31/2016 17:46:00 DIS Emergency MEGAN ROBERTS MD [facility] ER ABD PAIN [id number] 12/24/2015 11:29:00 12/24/2015 23:59:59 CLS Outpatient JOHN FRANK DO [facility] RAD INCREASED PROLACTIN LEVEL [id number] 12/02/2015 15:50:00 12/02/2015 18:27:00 DIS Emergency MEGAN ROBERTS MD [facility] ER BLADDER PROBLEMS [id number] 07/16/2015 13:52:00 07/16/2015 23:59:59 CLS Outpatient CRUZ RUGGIERO APRN [facility] QUICK [id number] 02/09/2015 13:48:00 02/09/2015 23:59:59 CLS Outpatient ZAC ARCHER JOHN Yamilka [facility] RAD ABD PAIN [id number] 01/27/2015 09:19:00 01/27/2015 23:59:59 CLS Outpatient YOSEF FRANK 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 [facility] RAD BACK PAIN WITH RADICULOPATHY [id number] 01/20/2015 08:48:00 01/20/2015 23:59:59 CLS Outpatient YOSEF FRANK 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 [facility] RAD NECK/BACK PAIN, HYPERGLYCEMIA,MED RISK,ELEVATED GLU [id number] 12/10/2014 14:49:00 12/10/2014 16:52:00 DIS Emergency CHIQUITA ZAPATA APRN [facility] ER [id number] 12/03/2014 08:10:00 12/03/2014 12:30:00 DIS Outpatient RAYA CEBALLOS MD [facility] [id number] 11/28/2014 12:42:00 11/28/2014 23:59:59 CLS Outpatient ZAC ARCHER JOHN Yamilka [facility] RAD [id number] 11/17/2014 16:51:00 11/17/2014 23:59:59 CLS Preadmit JOHN FRANK DO [facility] REHAB [id number] 10/05/2014 19:31:00 10/12/2014 12:00:00 DIS Inpatient JOHN FRANK DO Via [address] [id number] 07/29/2014 09:49:00 07/29/2014 23:59:59 CLS Outpatient YOSEF FRANK Linh WHITE [facility] RAD [id number] 07/25/2014 08:27:00 07/25/2014 23:59:59 CLS Outpatient SHELIA AQUINO MD [facility] RAD [id number] 07/23/2014 16:14:00 07/23/2014 23:59:59 CLS Outpatient SHELIA AQUINO MD [facility] LAB [id number] 06/03/2014 15:00:00 06/03/2014 16:32:00 DIS Emergency TATA PHILLIPS DO [facility] ER [id number] 02/26/2014 12:58:00 02/26/2014 23:59:59 CLS Outpatient JOHN FRANK DO [facility] RAD [id number] 12/09/2013 08:54:00 12/09/2013 23:59:59 CLS Outpatient JOHN FRANK DO [facility] RT [id number] 11/05/2013 08:53:00 11/05/2013 23:59:59 CLS Outpatient ZAC ARCHERJOHN Yamilka [facility] RAD [id number] 10/29/2013 08:00:00 10/31/2013 08:49:00 DIS Outpatient FRANKJOHN PATRICIA DO Yamil[place] [facility] REHAB [id number] 05/13/2013 16:35:00 05/13/2013 23:59:59 CLS Outpatient YOSEF MOSLEY JACQUELYN [facility] RAD [id number] 04/08/2013 11:26:00 04/08/2013 13:40:00 DIS Emergency AYANNA SARKAR [facility] ER [id number] 01/28/2013 12:04:00 01/28/2013 23:59:59 CLS Outpatient PARISH VALENCIA FACC, NAVIN HOLT CCDS [facility] RAD [id number] 01/26/2013 11:37:00 01/27/2013 13:50:00 DIS Inpatient FRANKJOHN PATRICIA DO [facility] ICU [id number] 10/12/2012 13:00:00 10/12/2012 23:59:59 CLS Outpatient ZAC ARCHERJOHN Yamilka [facility] RAD [id number] 09/06/2012 11:52:00 09/06/2012 23:59:59 CLS Outpatient FRANK JOHN ARCHER [facility] RAD [id number] 05/28/2012 15:10:00 Document Registration [id number] 04/30/2012 08:32:00 Document Registration [id number] 02/09/2012 21:00:00 Document Registration
[2017-06-19] MEDS ORDERED: AMOX-355 PO (12:51)
[2017-06-19] MEDS ORDERED: PRD20T PO (12:51)
--- NOTE | 2017-06-19 12:51 | ED Cough/URI ---
General Chief Complaint: Fever-Adult/Adol Stated Complaint: WEAKNESS,COUGHING Nursing Triage Note: PATIENT STATES THAT SHE HAS HAD THE FLU RECENTLY (2 WEEKS AGO). ABOUT A WEEK AGO SHE BEGAN HAVING A COUGH AND HAS FELT WEAK. SHE HAS HAD CHILLS, NOT SURE IF SHE HAD A FEVER. Source: patient Exam Limitations: no limitations History of Present Illness Date Seen by Provider: Jun 19, 2017 Time Seen by Provider: 12:48 Initial Comments To ER with persistent cough and flulike symptoms. She feels generally weak. She has chills but no measured fever. She does smoke cigarettes have COPD. 2 weeks ago with the onset of this she was treated empirically with Tamiflu for flulike symptoms. Taken that but has never really felt better. Timing/Duration: constant Severity/Quality: productive cough Associated Symptoms: cough Allergies and Home Medications Allergies Coded Allergies: cephalexin (Unverified Allergy, Unknown, 12/03/14) povidone-iodine (Unverified Allergy, Unknown, 07/15/10) soap (Unverified Allergy, Unknown, 07/15/10) Home Medications Acetaminophen With Codeine 1 Each Tablet, 1 TAB PO QID PRN for COUGH, (Reported) Amoxicillin/Potassium Clav 1 Each Tablet, 1 EACH PO BID, #14 Prescribed by: CHIQUITA ZAPATA on 06/19/17 1251 Bisacodyl 5 Mg Tablet., 5 MG PO BID, #6 Prescribed by: CHIQUITA ZAPATA on 12/10/14 1646 Bupropion Hcl 150 Mg Tablet, 1 TAB PO DAILY, #30 (Reported) Dexlansoprazole 60 Mg , 60 MG PO DAILY, (Reported) Estradiol 1 Mg Tablet, 0.5 MG PO DAILY, (Reported) Gabapentin 300 Mg Cap, 900 MG PO HS, (Reported) take 3 (300 mg) capsules at bedtime Gabapentin 300 Mg Capsule, 1 EACH PO TID, (Reported) Levothyroxine Sodium 75 Mcg Tablet, 75 MCG PO DAILY, (Reported) Liraglutide 0.6 Mg/0.1 Ml Pen.injctr, 0.6 MG SQ, (Reported) Meloxicam 15 Mg Tablet, 15 MG PO BID, (Reported) Montelukast Sodium 10 Mg Tablet, 10 MG PO, (Reported) Paliperidone 3 Mg Tab.osm.24, 3 MG PO MONTHLY, (Reported) Polyethylene Glycol 17 Gm Pack, 17 GM PO DAILY, #0 Prescribed by: CATHERINE ROSS on 10/06/14 0131 Prednisone 20 Mg Tab, 40 MG PO DAILY, #8 Prescribed by: CHIQUITA ZAPATA on 06/19/17 1251 Quetiapine Fumarate 400 Mg Tablet, 400 MG PO HS, (Reported) Sucralfate 1 G Tablet, 1 G PO QID, (Reported) Tramadol HCl 50 Mg Tablet, #30 (Reported) [Latuda] , (Reported) Constitutional: see HPI EENTM: see HPI Respiratory: see HPI, cough Cardiovascular: no symptoms reported Genitourinary: no symptoms reported Musculoskeletal: no symptoms reported Skin: no symptoms reported Psychiatric/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: No Symptoms Reported (was) Past Agzhtxl-Sdsvpg-Rbdonm Hx Patient Social History Alcohol Use: Rarely Uses Recreational Drug Use: No Smoking Status: Current Everyday Smoker Type Used: Cigarettes 2nd Hand Smoke Exposure: Yes Recent Foreign Travel: No Contact w/Someone Who Travel: No Recent Infectious Disease Expo: No Recent Hopitalizations: No Immunizations Up To Date Tetanus Booster (TDap): More than 5yrs Date of Pneumonia Vaccine: May 05, 2013 Date of Influenza Vaccine: Feb 02, 2014 Seasonal Allergies Seasonal Allergies: No Surgeries History of Surgeries: Yes Surgeries: Bladder Surgery, Breast, Hysterectomy Respiratory History of Respiratory Disorde: Yes ("MIGHT HAVE COPD") Respiratory Disorders: COPD Cardiovascular History of Cardiac Disorders: Yes Cardiac Disorders: Hypertension 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 History of 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 Disord: Yes (ELECTRICAL SHOCK TREATMENT ON BRAIN) 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 History: Hysterectomy Genitourinary History of Genitourinary Disor: No Gastrointestinal History of Gastrointestinal Di: Yes Gastrointestinal Disorders: Gastroesophageal Reflux, Chronic Constipation Musculoskeletal History of Musculoskeletal Dis: Yes Musculoskeletal Disorders: Fibromyalgia Endocrine History of Endocrine Disorders: Yes Endocrine Disorders: Hypothyroidsim HEENT History of HEENT Disorders: Yes HEENT Disorders: Cataract Cancer History of Cancer: No Psychosocial History of Psychiatric Problem: Yes Behavioral Health Disorders: Schizophrenia, Depression Integumentary History of Skin or Integumenta: No Blood Transfusions History of Blood Disorders: No Family Medical History Significant Family History: No Pertinent Family Hx Family Medial History: CANCER G8 SISTER (DOESN'T KNOW WHAT TYPE OF CANCER) Diabetes mellitus 19 MOTHER STROKE G8 BROTHER Physical Exam Vital Signs Vital Signs - First Documented 06/19/17 11:29 Temp 97.5 Pulse 104 Resp 18 B/P (MAP) 131/66 (87) Pulse Ox 97 O2 Delivery Room Air Capillary Refill : Less Than 3 Seconds General Appearance: WD/WN, no apparent distress Eyes: Bilateral Eye Normal Inspection, Bilateral Eye PERRL, Bilateral Eye EOMI HEENT: PERRL/EOMI, normal ENT inspection Respiratory: normal breath sounds, no respiratory distress, no accessory muscle use Cardiovascular: regular rate, rhythm, no murmur Gastrointestinal: normal bowel sounds, non tender, soft Neurologic/Psychiatric: alert, normal mood/affect, oriented x 3 Skin: normal color, warm/dry (and he doesn't think this is) Progress/Results/Core Measures Suspected Sepsis Recent Fever Within 48 Hours: Yes Infection Criteria Present: Suspected New Infection New/Unexplained Altered Menta: No Sepsis Screen: Possible Sepsis Risk Sepsis Diagnosis: SIRS Temperature:97.5 Pulse: 104 Respiratory Rate: 18 Blood Pressure 131 /66 Mean: 87 Results/Orders Micro Results Microbiology 06/19/17 Influenza Types A,B Antigen ([facility]) - Final, Complete Vital Signs/I&O Vital Sign - Last 12Hours 06/19/17 11:29 Temp 97.5 Pulse 104 Resp 18 B/P (MAP) 131/66 (87) Pulse Ox 97 O2 Delivery Room Air Capillary Refill : Less Than 3 Seconds Blood Pressure Mean: 87 Departure Impression Impression: Primary Impression: COPD exacerbation Disposition: 01 HOME, SELF-CARE Condition: Stable Departure-Patient Inst. Decision time for Depature: 12:49 Referrals: JOHN FRANK DO (PCP/Family) Primary Care Physician Patient Instructions: Exacerbation of COPD Add. Discharge Instructions: 1. Steroids as directed 2. Breathing treatments at home 3. Antibiotis as directed 4. Follow-up with your doctor this week for recheck All discharge instructions reviewed with patient and/or family. Voiced understanding. Scripts Amoxicillin/Potassium Clav (Augmentin 500-125 Tablet) 1 Each Tablet 1 EACH PO BID, #14 TAB Prov: CHIQUITA ZAPATA APRN 06/19/17 Prednisone (Prednisone) 20 Mg Tab 40 MG PO DAILY, #8 TAB Prov: CHIQUITA ZAPATA APRN 06/19/17 CHIQUITA ZAPATA APRN Jun 19, 2017 12:51
[2017-06-19 13:06] VITALS: BP 131/66
--- NOTE | 2017-06-19 13:10 | Diagnostic Imaging Report ---
PATIENT HISTORY: Cough, weakness, chills. Recent flu. TECHNIQUE: Two views of the chest. COMPARISON: 03/31/2016. FINDINGS: The lung volumes are normal. No focal consolidation is seen. No large pleural effusion or pneumothorax is seen. The cardiomediastinal silhouette is normal in size and contour. No acute osseous abnormality is seen. IMPRESSION: No acute pulmonary abnormality seen. Dictated by: Dictated on workstation # [id number]
== END 2017-06-19 13:04 | disposition home or self-care (01) ==
LOC: EDUNIT# 10:58 → ER 11:00
DX: J44.1 Chronic obstructive pulmonary disease with (acute) exacerbation (principal); F29 Unspecified psychosis not due to a substance or known physiological condition; F20.9 Schizophrenia, unspecified; E03.9 Hypothyroidism, unspecified; K21.9 Gastro-esophageal reflux disease without esophagitis; I10 Essential (primary) hypertension; F17.210 Nicotine dependence, cigarettes, uncomplicated; Z88.1 Allergy status to other antibiotic agents; Z88.3 Allergy status to other anti-infective agents; Z90.710 Acquired absence of both cervix and uterus; Z79.52 Long term (current) use of systemic steroids
CPT/HCPCS: 71046; 87804

== ENCOUNTER 2018-04-21 13:12 | Emergency (ER) | payer MEDICARE, MEDICAID ==
[~2018-04-21] VITALS: Ht 162.6 cm; Wt 79.4 kg
[~2018-04-21 13:12] MED LIST changes: +AMOX-355 PO; +PRD20T PO
--- OUTSIDE RECORDS SUMMARY | 2018-04-21 13:21 | XMS REPORT | Continuity of Care Document ---
Author Author [facility] Organization [facility] Address Unknown Phone Unavailable Allergies Active Description Code Type Severity Reaction Onset Reported/Identified Relationship to Patient Clinical Status Yes povidone-iodine [id number] Drug Allergy Unknown N/A 07/15/2010 Yes Soap [id number] Drug Allergy Unknown N/A 07/15/2010 Yes cephalexin [id number] Drug Allergy Unknown N/A 12/03/2014 Medications There [...] FACP CCDS Ot 786.50 07/23/2014 YOSEF MOSLEY DISBURSING OFFICER Ot 786.2 07/23/2014 YOSEF MOSLEY DISBURSING OFFICER Ot 786.50 07/23/2014 FRANKBRIAN ARCHER JOHN Yamilka Ot V76.12 07/23/2014 FRANK JOHN ARCHER Ot 780.2 07/23/2014 FRANKJOHN PATRICIA DO Ot 786.09 08/05/2014 MILES VALENCIA, SHELIA Wright Ot 596.89 08/05/2014 MILES VALENCIA, SHELIA Wright Ot 789.09 08/27/2014 YOSEF FRANK MEDICAL ASSISTANT OB GYN Ot 786.09 08/27/2014 MILES VALENCIA, SHELIA Wright Ot 596.89 08/27/2014 MILES VALENCIA, SHELIA Wright Ot 789.09 09/03/2014 MILES VALENCIA, SHELIA Wright Ot 789.09 09/03/2014 YOSEF FRANK MEDICAL ASSISTANT OB GYN Ot 786.09 09/19/2014 MILES VALENCIA, SHELIA Wright Ot 789.09 10/10/2014 MILES VALENCIA, SHELIA Wright Ot 596.89 10/10/2014 SHELIA AQUINO MD Ot 789.09 10/12/2014 FRANK DO, JOHN Yamilka Ot 244.9 10/12/2014 FRANK DO, JOHN Yamilka Ot 276.1 10/12/2014 FRANK DO, JOHN Yamilka Ot 295.90 10/12/2014 FRANK DO, JOHN Prather Ot 296.80 10/12/2014 FRANK DO, JOHN Yamilka Ot 305.1 10/12/2014 FRANK DO, JOHN Yamlika Ot 401.9 10/12/2014 FRANK DO, JOHN Yamilka Ot 493.22 10/12/2014 FRANK DO, JOHN Prather Ot 518.0 10/12/2014 FRANK DO, JOHN Prather Ot 518.81 10/12/2014 FRANK DO, JOHN Prather Ot 519.19 10/12/2014 FRANK DO, JOHN Yamilka Ot 530.81 10/12/2014 FRANK DO, JOHN Yamilka Ot 729.1 10/12/2014 FRANK DO OJHN Prather Ot 780.4 10/12/2014 FRANK DO JOHN Yamilka Ot E942.6 10/12/2014 FRANK DO JOHN Yamilka Ot V07.4 10/28/2014 MILES VALENCIA, SHELIA Wright Ot 596.89 10/28/2014 SHELIA AQUINO MD Ot 789.09 10/28/2014 YOSEF FRANK MEDICAL ASSISTANT OB GYN Ot 786.09 12/03/2014 RAYA CEBALLOS MD Ot 530.11 12/03/2014 RAYA CEBALLOS MD Ot 535.50 12/03/2014 RAYA CEBALLOS MD Ot 553.3 12/10/2014 CHIQUITA ZAPATA DISBURSING OFFICER Ot 535.50 12/10/2014 CHIQUITA ZAPATA DISBURSING OFFICER Ot 564.00 12/10/2014 CHIQUITA ZAPATA DISBURSING OFFICER Ot 789.00 01/06/2015 FRANK DOJOHN Ot 305.1 01/06/2015 FRANK DOJOHN Ot 786.09 01/06/2015 ZAC ARCHER JOHN Yamilka Ot V76.12 01/13/2015 FRANK JOHN Yamilka Ot 305.1 01/13/2015 ZAC ARCHER JOHN Yamilka Ot 786.09 01/13/2015 ZAC ARCHER JOHN Yamilka Ot V76.12 02/09/2015 JAILYN FRANKRICIA L MEDICAL ASSISTANT OB GYN Ot 722.4 02/09/2015 FRANK, YOSEF L MEDICAL ASSISTANT OB GYN Ot 790.29 02/09/2015 FRANK, YOSEF L MEDICAL ASSISTANT OB GYN Ot V58.69 02/09/2015 FRANK, YOSEF L MEDICAL ASSISTANT OB GYN Ot 722.92 02/09/2015 FRANK YOSEF L MEDICAL ASSISTANT OB GYN Ot 722.4 02/09/2015 FRANK, YOSEF L MEDICAL ASSISTANT OB GYN Ot 790.29 02/09/2015 FRANK, YOSEF L MEDICAL ASSISTANT OB GYN Ot V58.69 02/09/2015 FRANK, YOSEF L MEDICAL ASSISTANT OB GYN Ot 722.92 02/11/2015 FRANK, YOSEF L MEDICAL ASSISTANT OB GYN Ot 722.4 02/11/2015 FRANK, YOSEF L MEDICAL ASSISTANT OB GYN Ot 790.29 02/11/2015 FRANK, YOSEF L MEDICAL ASSISTANT OB GYN Ot V58.69 02/23/2015 FRANK, YOSEF L MEDICAL ASSISTANT OB GYN Ot 722.92 03/05/2015 FRANK, YOSEF L MEDICAL ASSISTANT OB GYN Ot 722.92 03/05/2015 ZAC ARCHER JOHN Yamilka Ot R10.9 03/16/2015 JOHN FRANK DO Ot R10.9 04/06/2015 FRANK, YOSEF L MEDICAL ASSISTANT OB GYN Ot 722.4 04/06/2015 FRANK, YOSEF L MEDICAL ASSISTANT OB GYN Ot 790.29 04/06/2015 FRANK, YOSEF L MEDICAL ASSISTANT OB GYN Ot V58.69 12/02/2015 ALEJANDRA VALENCIA, MEGNA Mcelroy Ot R10.2 PELVIC AND PERINEAL PAIN 12/02/2015 ALEJANDRA VALENCIA, MEGAN Mcelroy Ot Z85.41 PERSONAL HISTORY OF MALIGNANT NEOPLASM O 12/03/2015 ALEJANDRA VALENCIA, MEGAN Mcelroy Ot R10.2 PELVIC AND PERINEAL PAIN 12/03/2015 ALEJANDRA VALENCIA, MEGAN Mcelroy Ot Z85.41 PERSONAL HISTORY OF MALIGNANT NEOPLASM O 12/24/2015 YOSEF FRANK MEDICAL ASSISTANT OB GYN Ot 722.4 CERVICAL DISC DEGEN 12/24/2015 YSOEF FRANK MEDICAL ASSISTANT OB GYN Ot 790.29 OTHER ABNORMAL GLUCOSE 12/24/2015 YOSEF FRANK MEDICAL ASSISTANT OB GYN Ot V58.69 OTH MED,LT,CURRENT USE 12/24/2015 YOSEF FRANK MEDICAL ASSISTANT OB GYN Ot 722.92 DISC DIS NEC/NOS-THORAC 12/24/2015 JOHN FRANK DO Ot R10.9 UNSPECIFIED ABDOMINAL PAIN 01/15/2016 JOHN FRANK DO Ot 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, UNSPEC 02/01/2016 JOHN FRANK DO Ot 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, UNSPEC 03/31/2016 YOSEF FRANK MEDICAL ASSISTANT OB GYN Ot 722.4 CERVICAL DISC DEGEN 03/31/2016 YOESF FRANK MEDICAL ASSISTANT OB GYN Ot 790.29 OTHER ABNORMAL GLUCOSE 03/31/2016 YOSEF FRANK MEDICAL ASSISTANT OB GYN Ot V58.69 OTH MED,LT,CURRENT USE 03/31/2016 YOSEF FRANK MEDICAL ASSISTANT OB GYN Ot 722.92 DISC DIS NEC/NOS-THORAC 03/31/2016 JOHN FRANK DO Ot R10.9 UNSPECIFIED ABDOMINAL PAIN 03/31/2016 JOHN FRANK DO Ot 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, UNSPEC 03/31/2016 ALEJANDRA VALENCIA, MEGAN Mcelroy Ot I10 ESSENTIAL (PRIMARY) HYPERTENSION 03/31/2016 ALEJANDRA VALENCIA, MEGAN Mcelory Ot K59.00 CONSTIPATION, UNSPECIFIED 03/31/2016 ALEJANDRA VALENCIA, MEGAN Mcelroy Ot R10.12 LEFT UPPER QUADRANT PAIN 03/31/2016 ALEJANDRA VALENCIA, MEGAN Mcelroy Ot Z79.899 OTHER [facility] (CURRENT) DRUG THERAPY 03/31/2016 YOSEF FRANK MEDICAL ASSISTANT OB GYN Ot 722.4 CERVICAL DISC DEGEN 03/31/2016 YOSEF FRANK MEDICAL ASSISTANT OB GYN Ot 790.29 OTHER ABNORMAL GLUCOSE 03/31/2016 YOSEF FRANK MEDICAL ASSISTANT OB GYN Ot V58.69 OTH MED,LT,CURRENT USE 03/31/2016 YOSEF FRANK MEDICAL ASSISTANT OB GYN Ot 722.92 DISC DIS NEC/NOS-THORAC 03/31/2016 JOHN FRANK DO Ot R10.9 UNSPECIFIED ABDOMINAL PAIN 03/31/2016 JOHN FRANK DO Ot 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, UNSPEC 04/01/2016 ALEJANDRA VALENCIA, MEGAN T Ot I10 ESSENTIAL (PRIMARY) HYPERTENSION 04/01/2016 ALEJANDRA VALENCIA, MEGAN T Ot K59.00 CONSTIPATION, UNSPECIFIED 04/01/2016 ALEJANDRA VALENCIA, MEGAN T Ot R10.12 LEFT UPPER QUADRANT PAIN 04/01/2016 ALEJANDRA VALENCIA, MEGAN T Ot Z79.899 OTHER [facility]ENTER DIRECTOR (CURRENT) DRUG THERAPY 04/06/2016 MEGAN ROBERTS MD T Ot I10 ESSENTIAL (PRIMARY) HYPERTENSION 04/06/2016 ALEJANDRA VALENCIA, MEGAN T Ot K59.00 CONSTIPATION, UNSPECIFIED 04/06/2016 ALEJANDRA VALENCIA, MEGAN T Ot R10.12 LEFT UPPER QUADRANT PAIN 04/06/2016 ALEJANDRA VALENCIA, MEGAN T Ot Z79.899 OTHER MEDICAL CENTER DIRECTOR (CURRENT) DRUG THERAPY 05/09/2016 YOSEF FRANK MEDICAL ASSISTANT OB GYN Ot 722.4 CERVICAL DISC DEGEN 05/09/2016 YOSEF FRANK MEDICAL ASSISTANT OB GYN Ot 790.29 OTHER ABNORMAL GLUCOSE 05/09/2016 YOSEF FRANK MEDICAL ASSISTANT OB GYN Ot V58.69 OTH MED,LT,CURRENT USE 05/09/2016 YOSEF FRANK MEDICAL ASSISTANT OB GYN Ot 722.92 DISC DIS NEC/NOS-THORAC 05/09/2016 JOHN FRANK DO Ot R10.9 UNSPECIFIED ABDOMINAL PAIN 05/09/2016 JOHN FRANK DO Ot 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, UNSPEC 05/09/2016 YOSEF FRANK MEDICAL ASSISTANT OB GYN Ot 722.4 CERVICAL DISC DEGEN 05/09/2016 YOSEF FRANK MEDICAL ASSISTANT OB GYN Ot 790.29 OTHER ABNORMAL GLUCOSE 05/09/2016 YOSEF FRANK MEDICAL ASSISTANT OB GYN Ot V58.69 OTH MED,LT,CURRENT USE 05/09/2016 YOSEF FRANK MEDICAL ASSISTANT OB GYN Ot 722.92 DISC DIS NEC/NOS-THORAC 05/09/2016 JOHN FRANK DO Ot R10.9 UNSPECIFIED ABDOMINAL PAIN 05/09/2016 JOHN FRANK DO Ot 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, UNSPEC 05/17/2016 YOSEF FRANK MEDICAL ASSISTANT OB GYN Ot 722.4 CERVICAL DISC DEGEN 05/17/2016 YOSEF FRANK MEDICAL ASSISTANT OB GYN Ot 790.29 OTHER ABNORMAL GLUCOSE 05/17/2016 FRANKYOSEF PATRICIA MEDICAL ASSISTANT OB GYN Ot V58.69 OTH MED,LT,CURRENT USE 05/17/2016 FRANKYOSEF PATRICIA MEDICAL ASSISTANT OB GYN Ot 722.92 DISC DIS NEC/NOS-THORAC 05/17/2016 JOHN [...] NEOPLASM OF PITUITARY GLAND 12/08/2016 YOSEF FRANK MEDICAL ASSISTANT OB GYN Ot 722.4 CERVICAL DISC DEGEN 12/08/2016 YOSEF FRANK MEDICAL ASSISTANT OB GYN Ot 790.29 OTHER ABNORMAL GLUCOSE 12/08/2016 YOSEF FRANK MEDICAL ASSISTANT OB GYN Ot V58.69 OTH MED,LT,CURRENT USE 12/08/2016 YOSEF FRANK MEDICAL ASSISTANT OB GYN Ot 722.92 DISC DIS NEC/NOS-THORAC 12/08/2016 JOHN FRANK DO Ot R10.9 UNSPECIFIED ABDOMINAL [...] 12/08/2016 HUSSAIN WEBBER MD Ot Z79.899 OTHER [facility] (CURRENT) DRUG THERAPY 06/19/2017 CHIQUITA ZAPATA APRN Ot E03.9 HYPOTHYROIDISM, UNSPECIFIED 06/19/2017 CHIQUITA ZAPATA APRN Ot F17.210 NICOTINE DEPENDENCE, CIGARETTES, UNCOMPL 06/19/2017 CHIQUITA ZAPATA APRN Ot F20.9 SCHIZOPHRENIA, UNSPECIFIED 06/19/2017 CHIQUITA ZAPATA APRN Ot F29 UNSP PSYCHOSIS NOT DUE TO A SUBSTANCE OR 06/19/2017 CHIQUITA ZAPATA APRN Ot I10 ESSENTIAL (PRIMARY) HYPERTENSION 06/19/2017 CHIQUITA ZAPATA APRN Ot J44.1 CHRONIC OBSTRUCTIVE PULMONARY DISEASE W 06/19/2017 CHIQUITA ZAPATA APRN Ot K21.9 GASTRO-ESOPHAGEAL REFLUX DISEASE WITHOUT 06/19/2017 CHIQUITA ZAPATA APRN Ot R05 COUGH 06/19/2017 CHIQUITA ZAPATA APRN Ot Z79.52 [facility] (CURRENT) USE OF SYSTEMIC STER 06/19/2017 CHIQUITA ZAPATA APRN Ot Z88.1 ALLERGY STATUS TO OTHER ANTIBIOTIC AGENT 06/19/2017 CHIQUITA ZAPATA APRN Ot Z88.3 ALLERGY STATUS TO OTHER ANTI-INFECTIVE A 06/19/2017 CHIQUITA ZAPATA APRN Ot Z90.710 ACQUIRED ABSENCE OF BOTH CERVIX AND UTER 06/21/2017 CHIQUITA ZAPATA APRN Ot E03.9 HYPOTHYROIDISM, UNSPECIFIED 06/21/2017 CHIQUITA ZAPATA APRN Ot F17.210 NICOTINE DEPENDENCE, CIGARETTES, UNCOMPL 06/21/2017 CHIQUITA ZAPATA APRN Ot F20.9 SCHIZOPHRENIA, UNSPECIFIED 06/21/2017 CHIQUITA ZAPATA APRN Ot F29 UNSP PSYCHOSIS NOT DUE TO A SUBSTANCE OR 06/21/2017 CHIQUITA ZAPATA APRN Ot I10 ESSENTIAL (PRIMARY) HYPERTENSION 06/21/2017 CHIQUITA ZAPATA APRN Ot J44.1 CHRONIC OBSTRUCTIVE PULMONARY DISEASE W 06/21/2017 CHIQUITA ZAPATA APRN Ot K21.9 GASTRO-ESOPHAGEAL REFLUX DISEASE WITHOUT 06/21/2017 CHIQUITA ZAPATA APRN Ot R05 COUGH 06/21/2017 CHIQUITA ZAPATA APRN Ot Z79.52 MEDICAL CENTER DIRECTOR (CURRENT) USE OF SYSTEMIC STER 06/21/2017 CHIQUTIA ZAPATA APRN Ot Z88.1 ALLERGY STATUS TO OTHER ANTIBIOTIC AGENT 06/21/2017 CHIQUITA ZAPATA APRN Ot Z88.3 ALLERGY STATUS TO OTHER ANTI-INFECTIVE A 06/21/2017 CHIQUITA ZAPATA APRN Ot Z90.710 ACQUIRED ABSENCE OF BOTH CERVIX AND UTER 10/25/2017 JOHN RFANK DO Ot R53.83 OTHER [facility] 11/14/2017 JOHN FRANK DO Ot R53.83 OTHER [place] 11/28/2017 JOHN FRANK DO Ot R53.83 OTHER [place] 04/21/2018 YOSEF FRANK MEDICAL ASSISTANT OB GYN Ot 722.4 CERVICAL DISC DEGEN 04/21/2018 YOSEF FRANK MEDICAL ASSISTANT OB GYN Ot 790.29 OTHER ABNORMAL GLUCOSE 04/21/2018 YOSEF FRANK MEDICAL ASSISTANT OB GYN Ot V58.69 OTH MED,LT,CURRENT USE 04/21/2018 YOSEF FRANK [facility] Ot 722.92 DISC DIS NEC/NOS-THORAC 04/21/2018 JOHN FRANK DO Ot R10.9 UNSPECIFIED ABDOMINAL PAIN 04/21/2018 JOHN FRANK DO Ot 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 Results Test [...] detection in urine sediment by light microscopy 10-25 NRG Crystals detection in urine sediment by [...] plasma albumin measurement (mass/volume) 4.1 g/dL 3.2-4.5 Influenza virus A and B antigen detection - 06/19/17 12:26 FLU RESULT NEGATIVE FOR INFLUENZA A AND B ANTIGENS BY IA NRG Encounters ACCT No. Visit Date/Time Discharge Status Pt. Type Provider Facility Loc./Unit Complaint [id number] 11/23/2017 10:56:00 11/23/2017 23:59:59 CLS Preadmit JOHN FRANK DO [facility] RAD SLEEP DISTURBANCE [id number] 10/23/2017 06:41:00 10/23/2017 23:59:59 CLS Outpatient JOHN FRANK DO [facility] CARD FATIGUE [id number] 06/19/2017 11:00:00 06/19/2017 13:04:00 DIS Emergency CHIQUITA ZAPATA APRN [facility] ER WEAKNESS,COUGHING [id number] 12/08/2016 07:20:00 12/08/2016 09:52:00 DIS Emergency AKBAR VALENCIA, HUSSAIN Kohler [facility] ER WEAKNESS/SHAKEY/VOMITING 4 DAYS AGO/FATIGUE [id number] 10/27/2016 13:50:00 10/27/2016 23:59:59 CLS Outpatient LEON LOMELI DO L [facility] RAD 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 [id number] 10/06/2016 14:00:00 10/06/2016 23:59:59 CLS Preadmit AGUILAR LOMELI DOISON L [facility] RAD 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 [id number] 10/06/2016 13:45:00 10/06/2016 23:59:59 CLS Preadmit JOHN FRANK DO [facility] RAD SCREENING [id number] 09/30/2016 16:05:00 09/30/2016 23:59:59 CLS Outpatient ARMANI ARCHERAGUILARLEON L [facility] LAB 253.1 [id number] 05/20/2016 09:30:00 05/20/2016 23:59:59 CLS Preadmit ARMANI ARCHER LEON L [facility] RAD PITUITARY ADENOMA [id number] 03/31/2016 15:32:00 03/31/2016 17:46:00 DIS Emergency MEGAN ROBERTS MD [facility] ER ABD PAIN [id number] 12/24/2015 11:29:00 12/24/2015 23:59:59 CLS Outpatient JOHN FRANK DO [facility] RAD INCREASED PROLACTIN LEVEL [id number] 12/02/2015 15:50:00 12/02/2015 18:27:00 DIS Emergency MEGAN ROBERTS MD [facility] ER BLADDER PROBLEMS [id number] 07/16/2015 13:52:00 07/16/2015 23:59:59 CLS Outpatient CRUZ RUGGIERO APRN [facility] QUICK [id number] 02/09/2015 13:48:00 02/09/2015 23:59:59 CLS Outpatient JOHN FRANK DO [facility] RAD ABD PAIN [id number] 01/27/2015 09:19:00 01/27/2015 23:59:59 CLS Outpatient YOSEF FRANK MEDICAL ASSISTANT OB GYN [facility] RAD BACK PAIN WITH RADICULOPATHY [id number] 01/20/2015 08:48:00 01/20/2015 23:59:59 CLS Outpatient YOSEF FRANK MEDICAL ASSISTANT OB GYN [facility] RAD NECK/BACK PAIN, HYPERGLYCEMIA,MED RISK,ELEVATED GLU [id number] 12/10/2014 14:49:00 12/10/2014 16:52:00 DIS Emergency CHIQUITA ZAPATA DISBURSING OFFICER [facility] ER [id number] 12/03/2014 08:10:00 12/03/2014 12:30:00 DIS Outpatient [facility] [id number] 11/28/2014 12:42:00 11/28/2014 23:59:59 CLS Outpatient JOHN FRANK DO [facility] RAD [id number] 11/17/2014 16:51:00 11/17/2014 23:59:59 CLS Preadmit JOHN FRANK DO [facility] REHAB [id number] 10/05/2014 19:31:00 10/12/2014 12:00:00 DIS Inpatient JOHN FRANK DO Via [address] [id number] 07/29/2014 09:49:00 07/29/2014 23:59:59 CLS Outpatient YOSEF FRANK MEDICAL ASSISTANT OB GYN [facility] RAD [id number] 07/25/2014 08:27:00 07/25/2014 23:59:59 CLS Outpatient SHELIA AQUINO MD [facility] RAD [id number] 07/23/2014 16:14:00 07/23/2014 23:59:59 CLS Outpatient SHELIA AQUINO MD [facility] LAB [id number] 06/03/2014 15:00:00 06/03/2014 16:32:00 DIS Emergency TATA PHILLIPS DO [facility] ER [id number] 02/26/2014 12:58:00 02/26/2014 23:59:59 CLS Outpatient JOHN FRANK DO [facility] RAD [id number] 12/09/2013 08:54:00 12/09/2013 23:59:59 CLS Outpatient JOHN FRANK DO [facility] RT [id number] 11/05/2013 08:53:00 11/05/2013 23:59:59 CLS Outpatient JOHN FRANK DO [facility] RAD [id number] 10/29/2013 08:00:00 10/31/2013 08:49:00 DIS Outpatient JOHN FRANK DO [facility] REHAB [id number] 05/13/2013 16:35:00 05/13/2013 23:59:59 CLS Outpatient YOSEF MOSLEY JACQUELYN [facility] RAD [id number] 04/08/2013 11:26:00 04/08/2013 13:40:00 DIS Emergency AYANNA SARKAR [facility] ER [id number] 01/28/2013 12:04:00 01/28/2013 23:59:59 CLS Outpatient PARISH VALENCIA FACC, NAVIN HOLT CCDS [facility] RAD [id number] 01/26/2013 11:37:00 01/27/2013 13:50:00 DIS Inpatient FRANKJOHN TORRES DO [facility] ICU [id number] 10/12/2012 13:00:00 10/12/2012 23:59:59 CLS Outpatient JOHN FRANK DO [facility] RAD [id number] 09/06/2012 11:52:00 09/06/2012 23:59:59 CLS Outpatient JOHN FRANK DO [facility] RAD [id number] 04/21/2018 13:14:00 ACT Emergency GRACIELA HO MD [facility] ER PNEUMONIA [id number] 05/28/2012 15:10:00 Document Registration [id number] 04/30/2012 08:32:00 Document Registration [id number] 02/09/2012 21:00:00 Document Registration [id number] 02/09/2015 14:44:07 ACT Document Registration
[2018-04-21 14:28] LABS: BASOPHILS % (AUTO) 0 % (0-10); EOSINOPHILS % (AUTO) 0 % (0-10); HEMATOCRIT 40 % (35-52); HEMOGLOBIN 13.3 G/DL (11.5-16.0); LYMPHOCYTES # (AUTO) 1.2 X 10^3 (1.0-4.0); LYMPHOCYTES % (AUTO) 33 % (12-44); MEAN CORPUSCULAR HEMOGLOBIN 34 PG (25-34); MEAN CORPUSCULAR HGB CONC 34 G/DL (32-36); MEAN CORPUSCULAR VOLUME 101 FL (80-99); MEAN PLATELET VOLUME 10.2 FL (7.4-10.4); MONOCYTES # (AUTO) 0.3 X 10^3 (0.0-1.0); MONOCYTES % (AUTO) 7 % (0-12); NEUTROPHILS # (AUTO) 2.2 X 10^3 (1.8-7.8); NEUTROPHILS % (AUTO) 60 % (42-75); PLATELET COUNT 151 10^3/uL (130-400); RED BLOOD COUNT 3.94 10^6/uL (4.35-5.85); RED CELL DISTRIBUTION WIDTH 13.7 % (10.0-14.5); WHITE BLOOD COUNT 3.7 10^3/uL (4.3-11.0)
[2018-04-21] MEDS ORDERED: RT-ALBUTEROL/IPRATROPIUM 3 ML (DUONEB) VIAL INH ONE (14:30)
--- NOTE | 2018-04-21 14:30 | ED Cough/URI ---
General Chief Complaint: Respiratory Problems Stated Complaint: PNEUMONIA Source: patient Exam Limitations: no limitations History of Present Illness Date Seen by Provider: Apr 21, 2018 Time Seen by Provider: 14:12 Initial Comments Here with report of pneumonia. She was apparently seen at urgent care on Monday and told that she had pneumonia and was started on antibiotics. She is completed those now and she is not better. Complains of some tightness especially in the left upper chest that sometimes both sides. Does smoke and does bronchitis related to that. She is not currently on steroids. She has been doing breathing treatments and there only helping some. Last breathing treatment was at 830 this morning. Denies nausea or vomiting. Denies rash, weakness or diarrhea. Timing/Duration: week, getting worse Severity/Quality: moderate, dry cough Prior Episodes/Possible Cause: occasional episodes Modifying Factors: Worse With Coughing; Improves With Rest Associated Symptoms: cough, fever/chills, muscle aches, shortness of breath, sore throat, wheezing Allergies and Home Medications Allergies Coded Allergies: cephalexin (Unverified Allergy, Unknown, 12/03/14) povidone-iodine (Unverified Allergy, Unknown, 07/15/10) soap (Unverified Allergy, Unknown, 07/15/10) Home Medications Acetaminophen With Codeine 1 Each Tablet, 1 TAB PO QID PRN for COUGH, (Reported) Amoxicillin/Potassium Clav 1 Each Tablet, 1 EACH PO BID Prescribed by: CHIQUITA ZAPATA on 06/19/17 1251 Bisacodyl 5 Mg Tablet., 5 MG PO BID Prescribed by: CHIQUITA ZAPATA on 12/10/14 1646 Bupropion Hcl 150 Mg Tablet, 1 TAB PO DAILY, (Reported) Dexlansoprazole 60 Mg , 60 MG PO DAILY, (Reported) Estradiol 1 Mg Tablet, 0.5 MG PO DAILY, (Reported) Gabapentin 300 Mg Cap, 900 MG PO HS, (Reported) take 3 (300 mg) capsules at bedtime Gabapentin 300 Mg Capsule, 1 EACH PO TID, (Reported) Levothyroxine Sodium 75 Mcg Tablet, 75 MCG PO DAILY, (Reported) Meloxicam 15 Mg Tablet, 15 MG PO BID, (Reported) Paliperidone 3 Mg Tab.osm.24, 3 MG PO MONTHLY, (Reported) Polyethylene Glycol 17 Gm Pack, 17 GM PO DAILY Prescribed by: CATHERINE ROSS on 10/06/14 0131 Prednisone 20 Mg Tab, 40 MG PO DAILY Prescribed by: CHIQUITA ZAPATA on 06/19/17 1251 Quetiapine Fumarate 400 Mg Tablet, 400 MG PO HS, (Reported) Sucralfate 1 G Tablet, 1 G PO QID, (Reported) Patient Home Medication List Home Medication List Reviewed: Yes Review of Systems Review of Systems Constitutional: see HPI, chills, fever; No weakness EENTM: no symptoms reported Respiratory: cough, short of breath, wheezing Cardiovascular: see HPI; No palpitations Gastrointestinal: No abdominal pain, No nausea, No vomiting Genitourinary: No dysuria, No pain : No Musculoskeletal: no symptoms reported Skin: no symptoms reported Psychiatric/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: No Symptoms Reported All Other Systems Reviewed Negative Unless Noted: Yes Past Enezfab-Aankdv-Hpqllo Hx Past Med/Social Hx: Reviewed Nursing Past Med/Soc Hx Patient Social History Alcohol Use: Denies Use Recreational Drug Use: No Smoking Status: Current Everyday Smoker Type Used: Cigarettes 2nd Hand Smoke Exposure: Yes Recent Foreign Travel: No Contact w/Someone Who Travel: No Recent Hopitalizations: No Immunizations Up To Date Tetanus Booster (TDap): More than 5yrs Date of Pneumonia Vaccine: May 05, 2013 Date of Influenza Vaccine: Feb 02, 2014 Seasonal Allergies Seasonal Allergies: No Past Medical History Surgeries: Yes Bladder Surgery, Breast, Hysterectomy Respiratory: Yes ("MIGHT HAVE COPD") COPD Cardiac: Yes Hypertension 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: Yes (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 Genitourinary: No Gastrointestinal: Yes Gastroesophageal Reflux, Chronic Constipation Musculoskeletal: Yes Fibromyalgia Endocrine: Yes Hypothyroidsim HEENT: Yes Cataract Cancer: No Psychosocial: Yes Schizophrenia, Depression Integumentary: No Blood Disorders: No Family Medical History Reviewed Nursing Family Hx CANCER G8 SISTER (DOESN'T KNOW WHAT TYPE OF CANCER) Diabetes mellitus 19 MOTHER STROKE G8 BROTHER No Pertinent Family Hx Physical Exam Vital Signs - First Documented 04/21/18 14:04 Temp 97.7 Pulse 105 Resp 20 B/P (MAP) 143/79 (100) Pulse Ox 98 O2 Delivery Room Air Capillary Refill : Height: 5'3.00" Weight: 170lbs. 0oz. 77.336959mx; 35.15 BMI Method:Stated General Appearance: WD/WN, no apparent distress HEENT: PERRL/EOMI, pharynx normal Neck: full range of motion, supple Respiratory: lungs clear, normal breath sounds Cardiovascular: regular rate, rhythm, no murmur Gastrointestinal: non tender, soft Extremities: non-tender, normal inspection Neurologic/Psychiatric: alert, normal mood/affect, oriented x 3 Skin: normal color, warm/dry Focused Exam Lactate Level 04/21/18 14:15: Lactic Acid Level 1.85 Lactic Acid Level Laboratory Tests Test 04/21/18 14:15 Lactic Acid Level 1.85 MMOL/L (0.50-2.00) Progress/Results/Core Measures Suspected Sepsis SIRS Temperature: Pulse: Respiratory Rate: Laboratory Tests 04/21/18 14:15: White Blood Count 3.7L Blood Pressure / Mean: 04/21/18 14:15: Lactic Acid Level 1.85 Laboratory Tests 04/21/18 14:15: Creatinine 1.40H, Platelet Count 151, Total Bilirubin 0.2 Results/Orders Lab Results Laboratory Tests Test 04/21/18 14:15 Range/Units White Blood Count 3.7 L 4.3-11.0 10^3/uL Red Blood Count 3.94 L 4.35-5.85 10^6/uL Hemoglobin 13.3 11.5-16.0 G/DL Hematocrit 40 35-52 % Mean Corpuscular Volume 101 H 80-99 FL Mean Corpuscular Hemoglobin 34 25-34 PG Mean Corpuscular Hemoglobin Concent 34 32-36 G/DL Red Cell Distribution Width 13.7 10.0-14.5 % Platelet Count 151 130-400 10^3/uL Mean Platelet Volume 10.2 7.4-10.4 FL Neutrophils (%) (Auto) 60 42-75 % Lymphocytes (%) (Auto) 33 12-44 % Monocytes (%) (Auto) 7 0-12 % Eosinophils (%) (Auto) 0 0-10 % Basophils (%) (Auto) 0 0-10 % Neutrophils # (Auto) 2.2 1.8-7.8 X 10^3 Lymphocytes # (Auto) 1.2 1.0-4.0 X 10^3 Monocytes # (Auto) 0.3 0.0-1.0 X 10^3 Eosinophils # (Auto) 0.0 0.0-0.3 10^3/uL Basophils # (Auto) 0.0 0.0-0.1 10^3/uL Sodium Level 139 135-145 MMOL/L Potassium Level 4.8 3.6-5.0 MMOL/L Chloride Level 102 98-107 MMOL/L Carbon Dioxide Level 25 21-32 MMOL/L Anion Gap 12 5-14 MMOL/L Blood Urea Nitrogen 18 7-18 MG/DL Creatinine 1.40 H 0.60-1.30 MG/DL Estimat Glomerular Filtration Rate 38 BUN/Creatinine Ratio 13 Glucose Level 104 70-105 MG/DL Lactic Acid Level 1.85 0.50-2.00 MMOL/L Calcium Level 9.5 8.5-10.1 MG/DL Corrected Calcium 8.5-10.1 MG/DL Total Bilirubin 0.2 0.1-1.0 MG/DL Aspartate Amino Transf (AST/SGOT) 31 5-34 U/L Alanine Aminotransferase (ALT/SGPT) 29 0-55 U/L Alkaline Phosphatase 77 40-136 U/L C-Reactive Protein High Sensitivity 1.34 H 0.00-0.50 MG/DL Total Protein 7.6 6.4-8.2 GM/DL Albumin 4.6 H 3.2-4.5 GM/DL My Orders Orders - GRACIELA HO MD Cbc With Automated Diff (04/21/18 14:17) Comprehensive Metabolic Panel (04/21/18 14:17) Hs C Reactive Protein (04/21/18 14:17) Lactic Acid Analyzer (04/21/18 14:17) Blood Culture (04/21/18 14:17) Chest Pa/Lat (2 View) (04/21/18 14:17) Albuterol/Ipra Inhalation Soln (Duoneb I (04/21/18 14:30) Svn Small Volume Nebulizer (04/21/18 14:17) Prednisone Tablet (Deltasone Tablet) (04/21/18 16:15) Medications Given in ED Current Medications Medications Dose Ordered Sig/Patricia Route Start Time Stop Time Status Last Admin Dose Admin Albuterol/ Ipratropium 3 ml ONCE ONCE INH 04/21/18 14:30 04/21/18 14:31 DC 04/21/18 14:36 3 ML Prednisone 40 mg ONCE ONCE PO 04/21/18 16:15 04/21/18 16:16 DC 04/21/18 16:27 40 MG Vital Signs/I&O 04/21/18 04/21/18 14:04 14:37 Temp 97.7 Pulse 105 Resp 20 B/P (MAP) 143/79 (100) Pulse Ox 98 O2 Delivery Room Air Room Air Capillary Refill : Progress Note : Progress Note Seen and evaluated. IV, labs, blood cultures and lactic acid ordered. Duo neb ordered. Prednisone 40 mg by mouth ordered. We will get two-view chest x-ray. Monitor patient. 1655: Overall much better. No acute findings on x-ray. Discharged home with return precautions. Patient verbalize understanding instructions and agreement with plan. Diagnostic Imaging Diagonstic Imaging: Xray Plain Films/CT/US/NM/MRI: chest Comments NAME: RONALD MCCARTHY MED REC#: [id number] PT STATUS: REG ER : 1955 PHYSICIAN: GRACIELA HO MD ADMIT DATE: 04/21/18/ER Signed Date of Exam: 04/21/18 CHEST PA/LAT (2 VIEW) INDICATION: Pneumonia. COMPARISON: 06/19/2017. EXAMINATION: Two views of the chest were obtained. FINDINGS: The lungs show no focal consolidation, effusion or pneumothorax. No failure pattern. IMPRESSION: No acute appearing abnormality. Dictated by: Dictated on workstation # [id number] Dict: 04/21/18 1631 Trans: 04/21/181650 Interpreted by: JUAN LOCO Electronically signed by: JUAN LOCO 04/21/181650 Departure Impression Primary Impression: COPD exacerbation Disposition: 01 HOME, SELF-CARE Condition: Improved Departure-Patient Inst. Decision time for Depature: 16:59 Referrals: JOHN FRANK DO (PCP/Family) Primary Care Physician Patient Instructions: Community-Acquired Pneumonia, Adult (DC) Add. Discharge Instructions: All discharge instructions reviewed with patient and/or family. Voiced understanding. Take medicines as directed. You may use your breathing treatments every 4 hours if needed. If you have did do that more often than he need to come back for further evaluation. Return for worse pain, fever, vomiting, weakness, breathing problems or other concerns as needed. Scripts Prednisone (Prednisone) 20 Mg Tab 40 MG PO DAILY, #10 TAB 0 Refills Prov: GRACIELA HO MD 04/21/18 Work/School Note: Work Release Form Date Seen in the Emergency Department: Apr 21, 2018 Return to Work: Apr 22, 2018 Restrictions: No Restrictions GRACIELA HO MD Apr 21, 2018 14:30
[2018-04-21 14:48] LABS: ALANINE AMINOTRANSFERASE 29 U/L (0-55); ALBUMIN 4.6 GM/DL (3.2-4.5); ALKALINE PHOSPHATASE 77 U/L (40-136); BILIRUBIN,TOTAL 0.2 MG/DL (0.1-1.0); BUN/CREATININE RATIO 13; CALCIUM 9.5 MG/DL (8.5-10.1); CARBON DIOXIDE 25 MMOL/L (21-32); CHLORIDE 102 MMOL/L (98-107); GFR ESTIMATED 38; GLUCOSE 104 MG/DL (70-105); POTASSIUM 4.8 MMOL/L (3.6-5.0); SODIUM 139 MMOL/L (135-145); TOTAL PROTEIN 7.6 GM/DL (6.4-8.2)
[2018-04-21] MEDS ORDERED: predniSONE 20 MG TAB PO ONE (16:15)
--- NOTE | 2018-04-21 16:51 | Diagnostic Imaging Report ---
INDICATION: Pneumonia. COMPARISON: 06/19/2017. EXAMINATION: Two views of the chest were obtained. FINDINGS: The lungs show no focal consolidation, effusion or pneumothorax. No failure pattern. IMPRESSION: No acute appearing abnormality. Dictated by: Dictated on workstation # [id number]
[2018-04-21] MEDS ORDERED: PRD20T PO (17:00)
[2018-04-21 17:10] VITALS: BP 152/72
[2018-04-21] MEDS ORDERED: ALBU2.5V4 INH (17:13)
== END 2018-04-21 17:10 | disposition home or self-care (01) ==
LOC: EDUNIT# 13:12 → ER 13:14
DX: J44.1 Chronic obstructive pulmonary disease with (acute) exacerbation (principal); I10 Essential (primary) hypertension; K21.9 Gastro-esophageal reflux disease without esophagitis; E03.9 Hypothyroidism, unspecified; F32.9 Major depressive disorder, single episode, unspecified; F20.9 Schizophrenia, unspecified; F17.210 Nicotine dependence, cigarettes, uncomplicated; Z90.710 Acquired absence of both cervix and uterus; Z88.1 Allergy status to other antibiotic agents; Z91.041 Radiographic dye allergy status; Z88.8 Allergy status to other drugs, medicaments and biological substances; Z79.52 Long term (current) use of systemic steroids; Z87.01 Personal history of pneumonia (recurrent)
CPT/HCPCS: 36415; 71046; 80053; 83605; 85025; 86141; 87040; 94640

== ENCOUNTER → 2018-11-14 | Outpatient (CLI) | payer SELFPAY ==
[~2018-11-14] MED LIST changes: +ALBU2.5V4 INH
--- NOTE | 2018-11-20 06:40 | Forensic Nursing Medical Dir ---
Forensic Nursing Note Clinical Care Coordinator chart review complete GRACIELA HO MD Nov 20, 2018 06:40
== END ==
LOC: FNS 15:15
PROVIDERS: ATTEND Emergency Medicine
DX: Z02.89 Encounter for other administrative examinations (principal)

== ENCOUNTER 2019-06-29 16:36 | Emergency (ER) | payer MEDICARE ==
[~2019-06-29] VITALS: Ht 160 cm; Wt 70.4 kg
[~2019-06-29 16:36] MED LIST changes: -TRAM50TA2; +TRM50T
--- NOTE | 2019-06-29 16:46 | ED General ---
General Stated Complaint: WEAK,SOB,ARM/LEGS SHAKY Source of Information: Patient (CAMI CABAN DO) History of Present Illness Date Seen by Provider: Jun 29, 2019 Time Seen by Provider: 16:44 Initial Comments 64-year-old female presents with a brief episode of some shortness of breath, generalized weakness, she felt like both her arms and legs were weak, she felt shaky. She has some cramping of her hands. Patient reports the symptoms were about 45 minutes ago. That she was weak for a while she had a "crawled to the bedroom door and let her son in. Patient's only medical history of schizophrenia and bipolar. Patient denies any fever, chills, nausea, vomiting, cough. No other systemic complaints. Patient's symptoms have completely resolved upon presentation to the ER. (CAMI CABAN DO) Allergies and Home Medications Allergies Coded Allergies: cephalexin (Unverified Allergy, Unknown, 12/03/14) povidone-iodine (Unverified Allergy, Unknown, 07/15/10) soap (Unverified Allergy, Unknown, 07/15/10) Home Medications Acetaminophen With Codeine 1 Each Tablet, 1 TAB PO QID PRN for COUGH, (Reported) Albuterol Sulfate 2.5 Mg/3 Ml Vial.neb, 2.5 MG INH Q4H PRN for WHEEZING Prescribed by: GRACIELA HO on 04/21/18 1713 Amoxicillin/Potassium Clav 1 Each Tablet, 1 EACH PO BID Prescribed by: CHIQUITA ZAPATA on 06/19/17 1251 Bisacodyl 5 Mg Tablet.dr, 5 MG PO BID Prescribed by: CHIQUITA ZAPATA on 12/10/14 1646 Bupropion Hcl 150 Mg Tablet, 1 TAB PO DAILY, (Reported) Dexlansoprazole 60 Mg Cap.mp, 60 MG PO DAILY, (Reported) Estradiol 1 Mg Tablet, 0.5 MG PO DAILY, (Reported) Gabapentin 300 Mg Cap, 900 MG PO HS, (Reported) take 3 (300 mg) capsules at bedtime Gabapentin 300 Mg Capsule, 1 EACH PO TID, (Reported) Levothyroxine Sodium 75 Mcg Tablet, 75 MCG PO DAILY, (Reported) Meloxicam 15 Mg Tablet, 15 MG PO BID, (Reported) Paliperidone 3 Mg Tab.osm.24, 3 MG PO MONTHLY, (Reported) Polyethylene Glycol 17 Gm Pack, 17 GM PO DAILY Prescribed by: CATHERINE ROSS on 10/06/14 0131 Prednisone 20 Mg Tab, 40 MG PO DAILY Prescribed by: CHIQUITA ZAPATA on 06/19/17 1251 Prednisone 20 Mg Tab, 40 MG PO DAILY Prescribed by: GRACIELA HO on 04/21/18 1700 Quetiapine Fumarate 400 Mg Tablet, 400 MG PO HS, (Reported) Sucralfate 1 G Tablet, 1 G PO QID, (Reported) Patient Home Medication List Home Medication List Reviewed: Yes (CAMI CABAN DO) Review of Systems Review of Systems Constitutional: No chills, No fever; weakness Respiratory: No cough; short of breath Cardiovascular: No chest pain Gastrointestinal: No abdominal pain, No diarrhea, No nausea, No vomiting Musculoskeletal: see HPI Skin: no symptoms reported Psychiatric/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: See HPI (CAMI CABAN DO) Past Tmtikcb-Tbncqj-[place] Hx Past Med/Social Hx: Reviewed Nursing Past Med/Soc Hx (CAMI CABAN DO) Patient Social History Type Used: Cigarettes 2nd Hand Smoke Exposure: Yes Recent Foreign Travel: No Contact w/Someone Who Travel: No Recent Hopitalizations: No (CAMI CABAN DO) Immunizations Up To Date Tetanus Booster (TDap): More than 5yrs Date of Pneumonia Vaccine: May 05, 2013 Date of Influenza Vaccine: Feb 02, 2014 (CAMI CABAN DO) Seasonal Allergies Seasonal Allergies: No (CAMI CABAN DO) Past Medical History Surgeries: Yes Bladder Surgery, Breast, Hysterectomy Respiratory: Yes ("MIGHT HAVE COPD") COPD Cardiac: Yes Hypertension 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: Yes (ELECTRICAL SHOCK TREATMENT ON BRAIN) 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 (COPD) 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 Genitourinary: No Gastrointestinal: Yes Gastroesophageal Reflux, Chronic Constipation Musculoskeletal: Yes Fibromyalgia Endocrine: Yes Hypothyroidsim HEENT: Yes Cataract Cancer: No Psychosocial: Yes Schizophrenia, Depression Integumentary: No Blood Disorders: No (CAMI CABAN DO) Family Medical History CANCER G8 SISTER (DOESN'T KNOW WHAT TYPE OF CANCER) Diabetes mellitus 19 MOTHER STROKE G8 BROTHER No Pertinent Family Hx (CAMI CABAN DO) Physical Exam Vital Signs Vital Signs - First Documented 06/29/19 16:45 Temp 36.7 Pulse 107 Resp 14 B/P (MAP) 176/92 (120) Pulse Ox 97 O2 Delivery Room Air (GRACIELA HO MD) Vital Signs Capillary Refill : (CABAN,CAMI L DO) Height, Weight, BMI Height: 5'4.00" Weight: 175lbs. 0oz. 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 as Tested Skin: Normal Color, Warm/Dry (CABAN,CAMI L DO) Progress/Results/Core Measures Suspected Sepsis SIRS Temperature: Pulse: Respiratory Rate: Laboratory Tests 06/29/19 16:50: White Blood Count 5.0 Blood Pressure / Mean: Laboratory Tests 06/29/19 16:50: Creatinine 1.30, Platelet Count 155, Total Bilirubin 0.3 (CABAN,CAMI L DO) Results/Orders Lab Results Laboratory Tests Test 06/29/19 16:50 06/29/19 17:12 06/29/19 17:25 06/29/19 19:48 Range/Units White Blood Count 5.0 4.3-11.0 10^3/uL Red Blood Count 4.43 4.35-5.85 10^6/uL Hemoglobin 14.4 11.5-16.0 G/DL Hematocrit 43 35-52 % Mean Corpuscular Volume 98 80-99 FL Mean Corpuscular Hemoglobin 33 25-34 PG Mean Corpuscular Hemoglobin Concent 33 32-36 G/DL Red Cell Distribution Width 13.6 10.0-14.5 % Platelet Count 155 130-400 10^3/uL Mean Platelet Volume 11.0 H 7.4-10.4 FL Neutrophils (%) (Auto) 65 42-75 % Lymphocytes (%) (Auto) 28 12-44 % Monocytes (%) (Auto) 5 0-12 % Eosinophils (%) (Auto) 2 0-10 % Basophils (%) (Auto) 0 0-10 % Neutrophils # (Auto) 3.3 1.8-7.8 X 10^3 Lymphocytes # (Auto) 1.4 1.0-4.0 X 10^3 Monocytes # (Auto) 0.3 0.0-1.0 X 10^3 Eosinophils # (Auto) 0.1 0.0-0.3 10^3/uL Basophils # (Auto) 0.0 0.0-0.1 10^3/uL Sodium Level 138 139 135-145 MMOL/L Potassium Level 6.6 *H 4.4 3.6-5.0 MMOL/L Chloride Level 109 H 105 98-107 MMOL/L Carbon Dioxide Level 23 25 21-32 MMOL/L Anion Gap 6 9 5-14 MMOL/L Blood Urea Nitrogen 15 14 7-18 MG/DL Creatinine 1.30 1.18 0.60-1.30 MG/DL Estimat Glomerular Filtration Rate 42 46 BUN/Creatinine Ratio 12 12 Glucose Level 111 H 86 70-105 MG/DL Calcium Level 8.8 9.8 8.5-10.1 MG/DL Corrected Calcium 8.4 L 8.5-10.1 MG/DL Total Bilirubin 0.3 0.1-1.0 MG/DL Aspartate Amino Transf (AST/SGOT) 25 5-34 U/L Alanine Aminotransferase (ALT/SGPT) 20 0-55 U/L Alkaline Phosphatase 81 40-136 U/L Troponin I < 0.028 <0.028 NG/ML B-Type Natriuretic Peptide 10.1 <100.0 PG/ML Total Protein 6.9 6.4-8.2 GM/DL Albumin 4.5 3.2-4.5 GM/DL Serum Alcohol < 10 <10 MG/DL Urine Color YELLOW Urine Clarity CLEAR Urine pH 8.5 5-9 Urine Specific [place] 1.010 L 1.016-1.022 Urine Protein NEGATIVE NEGATIVE Urine Glucose (UA) NEGATIVE NEGATIVE Urine Ketones NEGATIVE NEGATIVE Urine Nitrite NEGATIVE NEGATIVE Urine Bilirubin NEGATIVE NEGATIVE Urine Urobilinogen 0.2 < = 1.0 MG/DL Urine Leukocyte Esterase NEGATIVE NEGATIVE Urine RBC (Auto) NEGATIVE NEGATIVE Urine RBC NONE /HPF Urine WBC NONE /HPF Urine Squamous Epithelial Cells RARE /HPF Urine Crystals NONE /LPF Urine Bacteria TRACE /HPF Urine Casts NONE /LPF Urine Mucus NEGATIVE /LPF Urine Culture Indicated NO Glucometer 99 70-110 MG/DL (GRACIELA HO MD) Micro Results Microbiology 06/29/19 Influenza Types A,B Antigen ([facility]) - Final, Complete (GRACIELA HO MD) My Orders Orders - GRACIELA HO MD Basic Metabolic Panel (06/29/19 19:38) (GRACIELA HO MD) Medications Given in ED Current Medications Medications Dose Ordered Sig/Patricia Route Start Time Stop Time Status Last Admin Dose Admin Calcium Gluconate 4.65 meq/Sodium Chloride 60 ml @ 120 mls/hr ONCE ONCE IV 06/29/19 17:45 06/29/19 18:14 DC 06/29/19 18:00 120 MLS/HR Dextrose 25 ml ONCE ONCE IV 06/29/19 17:45 06/29/19 17:46 DC 06/29/19 17:59 25 ML Furosemide 40 mg ONCE ONCE IVP 06/29/19 18:00 06/29/19 18:01 DC 06/29/19 17:59 40 MG Insulin Human Regular 10 unit ONCE ONCE IV 06/29/19 17:45 06/29/19 17:46 DC 06/29/19 18:00 10 UNIT (GRACIELA HO MD) Vital Signs/I&O 06/29/19 16:45 Temp 36.7 Pulse 107 Resp 14 B/P (MAP) 176/92 (120) Pulse Ox 97 O2 Delivery Room Air (GRACIELA HO MD) Vital Signs/I&O Capillary Refill : (CAMI CABAN DO) Progress Note : Time: 17:49 Progress Note She has potassium is 6.6 and has not hemolyzed after being checked 2 different times. Patient initially denied any potassium intake. However she reports that over the last week she has been taking 40 mEq of potassium a day and is also on spironolactone for hair loss. I did discuss with her that we will attempt to lower it and recheck and if it comes acceptable that we could discuss discharge at that time. Pt will be given calcium chloride, insulin 10 units IV, and Lasix 40 mg IV. She will get an initial amp of D50 and will get D5 half-normal at 250 an hour to account for the insulin discussed with Dr. Ho who will assume care.. (CAMI CABAN DO) Progress Note : Progress Note 1800: I did assume care of the patient pending repeat labs. Therapy as above. I did see the patient and discuss the plan for which she agreed. Patient ultimately just does not want to stay in the hospital. If her potassium improves and she is doing better and think that this is reasonable. This does appear to be iatrogenic due to oral consumption of potassium as well as the spir onolactone. Both of these I believe that she should stop and will discuss this with her as evaluation continues. Monitor patient. 1999: No significant ectopy. Pending repeat laboratory study. 2022: Repeat chemistries normal. I have instructed her to stop both potassium and spironolactone and she can rediscussed this with her doctor this week. I will send a copy of the note to Dr. Frank. Discharged home with return precautions. Patient verbalize understanding instructions and agreement with plan. (GRACIELA HO MD) ECG Initial ECG Impression Date: Jun 29, 2019 Initial ECG Impression Time: 17:20 Initial ECG Rate: 92 Initial ECG Rhythm: Normal Sinus Comment mild peaked t waves, t wave inversion AVL, V1, V2 (CAMI CABAN DO) Departure Impression Primary Impression: Drug-induced hyperkalemia Disposition: 01 HOME, SELF-CARE Condition: Improved Departure-Patient Inst. Decision time for Depature: 20:24 (GRACIELA HO MD) Referrals: JOHN FRANK DO (PCP/Family) Primary Care Physician Patient Instructions: Hyperkalemia (DC) Add. Discharge Instructions: You need to stop both the potassium and the spironolactone. You can rediscuss your concerns with her doctor this week. A copy of the note was sent to him. Resume normal diet. You should eat a snack tonight at least if not a meal. Continue to drink plenty of fluids. Return for worsening, fever, vomiting, weakness, breathing problems or other concerns as needed. Copy Copies To 1: JOHN FRANK TREVOR L DO Jun 29, 2019 16:46 GRACIELA HO MD Jun 29, 2019 20:02
[2019-06-29 16:58] LABS: BASOPHILS % (AUTO) 0 % (0-10); EOSINOPHILS # (AUTO) 0.1 10^3/uL (0.0-0.3); EOSINOPHILS % (AUTO) 2 % (0-10); HEMATOCRIT 43 % (35-52); HEMOGLOBIN 14.4 G/DL (11.5-16.0); LYMPHOCYTES # (AUTO) 1.4 X 10^3 (1.0-4.0); LYMPHOCYTES % (AUTO) 28 % (12-44); MEAN CORPUSCULAR HEMOGLOBIN 33 PG (25-34); MEAN CORPUSCULAR HGB CONC 33 G/DL (32-36); MEAN CORPUSCULAR VOLUME 98 FL (80-99); MONOCYTES # (AUTO) 0.3 X 10^3 (0.0-1.0); MONOCYTES % (AUTO) 5 % (0-12); NEUTROPHILS # (AUTO) 3.3 X 10^3 (1.8-7.8); NEUTROPHILS % (AUTO) 65 % (42-75); PLATELET COUNT 155 10^3/uL (130-400); RED CELL DISTRIBUTION WIDTH 13.6 % (10.0-14.5)
[2019-06-29 17:18] LABS: ALBUMIN 4.5 GM/DL (3.2-4.5); BILIRUBIN,TOTAL 0.3 MG/DL (0.1-1.0); CALCIUM 8.8 MG/DL (8.5-10.1); CREATININE SERUM 1.3 MG/DL (0.60-1.30); TOTAL PROTEIN 6.9 GM/DL (6.4-8.2)
[2019-06-29 17:20] LABS: BILIRUBIN,URINE NEGATIVE (NEGATIVE); CLARITY,URINE CLEAR; COLOR,URINE YELLOW; GLUCOSE, URINE (UA) NEGATIVE (NEGATIVE); KETONES,URINE NEGATIVE (NEGATIVE); LEUKOCYTE ESTERASE ,URINE NEGATIVE (NEGATIVE); NITRITE,URINE NEGATIVE (NEGATIVE); PH,URINE 8.5 (5-9); PROTEIN,URINE NEGATIVE (NEGATIVE)
[2019-06-29 17:26] LABS: POTASSIUM 6.6 MMOL/L (3.6-5.0)
[2019-06-29 17:26] LABS: BACTERIA,URINE TRACE /HPF; SQUAMOUS EPITHELIAL CELL,UR RARE /HPF
[2019-06-29] MEDS ORDERED: CALCIUM GLUCONATE 10% INJ 4.65 MEQ in NS (IVPB) 50 ML IV ONE (17:45)
[2019-06-29] MEDS ORDERED: D5 1/2 NS 1000 ML IV SOLUTION 1,000 ML IV SCH (17:45)
[2019-06-29] MEDS ORDERED: DEXTROSE 50% 50 ML (IMS) SYR IV ONE (17:45)
[2019-06-29] MEDS ORDERED: inSUlin (REGULAR) HUMAN 1 UNIT/0.01 ML (CHARGE PER UNIT) IV ONE (17:45)
--- NOTE | 2019-06-29 17:47 | Diagnostic Imaging Report ---
Procedure: Chest PA/LAT (2 view). Indication: Tachypnea. Comparison: 04/21/2018. Findings: No pulmonary mass or consolidation. No pleural effusion or pneumothorax. Normal heart size and mediastinal contours. Costal cartilage calcifications account for heterogeneous opacities in the anterior lower hemithorax on the lateral view. Impression: No acute cardiopulmonary process. Dictated by: Dictated on workstation # [id number]
[2019-06-29] MEDS ORDERED: FUROSEMIDE 40 MG/4 ML INJ (LASIX) IVP ONE (18:00)
[2019-06-29 20:15] LABS: CALCIUM 9.8 MG/DL (8.5-10.1); CREATININE SERUM 1.18 MG/DL (0.60-1.30); POTASSIUM 4.4 MMOL/L (3.6-5.0)
[2019-06-29 20:40] VITALS: BP 116/65
== END 2019-06-29 20:40 | disposition home or self-care (01) ==
LOC: EDUNIT# 16:36 → ER 16:37
DX: E87.5 Hyperkalemia (principal); J44.9 Chronic obstructive pulmonary disease, unspecified; I10 Essential (primary) hypertension; K21.9 Gastro-esophageal reflux disease without esophagitis; E03.9 Hypothyroidism, unspecified; F32.9 Major depressive disorder, single episode, unspecified; F20.9 Schizophrenia, unspecified; Z88.1 Allergy status to other antibiotic agents; Z88.8 Allergy status to other drugs, medicaments and biological substances; Z79.52 Long term (current) use of systemic steroids; Z77.22 Contact with and (suspected) exposure to environmental tobacco smoke (acute) (chronic)
CPT/HCPCS: 36415; 71046; 80048; 80053; 80320; 81000; 82962; 83880; 84484; 85025; 87804; 93005; 96361; 96365; 96375

== ENCOUNTER → 2019-11-13 | Outpatient (CLI) | payer MEDICARE ==
--- NOTE | 2019-11-13 11:49 | Diagnostic Imaging Report ---
PROCEDURE: CT sinuses without contrast TECHNIQUE: Multiple contiguous axial images were obtained through the sinuses without the use of intravenous contrast. Coronal and sagittal reformations were then performed. Auto Exposure Controls were utilized during the CT exam to meet ALARA standards for radiation dose reduction. INDICATION: Eustachian tube dysfunction. Chronic ear infections. Left eye visual disturbances. COMPARISON: MRI brain 10/27/2016. FINDINGS: Mild mucosal thickening in the maxillary and sphenoid sinus is stable to mildly progressed compared to 10/27/2016. No air-fluid levels. The ostiomeatal units and frontal recesses are patent. Judy bullosa in the right middle turbinate. Moderate leftward bowing of the nasal septum which is intact. The mastoids and middle ears are clear. Skull base is intact. Normal alignment of the temporomandibular joints. The orbits are unremarkable on this noncontrast exam. IMPRESSION: 1. Mild mucosal thickening in the maxillary and sphenoid sinuses stable to mildly progressed since 2016. 2. The mastoids and middle ears are clear. Dictated by: Dictated on workstation # [id number]
== END ==
LOC: RAD 11:02
PROVIDERS: ATTEND Internal Medicine
DX: H69.83 Other specified disorders of Eustachian tube, bilateral (principal); H53.8 Other visual disturbances; H66.90 Otitis media, unspecified, unspecified ear; J34.89 Other specified disorders of nose and nasal sinuses
CPT/HCPCS: 70486

== ENCOUNTER 2019-12-08 21:10 | Emergency (ER) | payer MEDICARE ==
[~2019-12-08] VITALS: Ht 167 cm; Wt 81.0 kg
--- OUTSIDE RECORDS SUMMARY | 2019-12-08 21:24 | XMS REPORT | Continuity of Care Document ---
Author Organization Unknown Address Unknown Phone Unavailable Allergies Active Description Code Type Severity Reaction Onset Reported/Identified Relationship to Patient Clinical Status Yes povidone-iodine [id number] D rug Allergy Unknown N/A 07/15/2010 Yes Soap [id number] Drug Allergy Unknown N/A 07/15/2010 Yes cephalexin [id number] Drug Allerg y Unknown N/A 12/03/2014 Medications There is no [...] 01/27/2013 JOHN FRANK DO Ot 401.9 01/27/2013 JOHN FRANK DO Ot 530.81 01/27/2013 JOHN FRANK DO Ot 729.1 01/27/2013 JOHN FRANK DO Ot 786.50 01/27/2013 JOHN FRANK DO Ot 911.4 01/27/2013 JOHN FRANK DO Ot E906.4 01/27/2013 JOHN FRANK DO Ot V04.81 04/08/2013 AYANNA SARKAR Ot 883.0 04/08/2013 AYANNA SARKAR Ot E000.8 04/08/2013 AYANNA SARKAR Ot E849.0 04/08/2013 AYANNA SARKAR Ot E920.8 04/08/2013 AYANNA SARKAR Ot V06.1 10/31/2013 FRANK DO JOHN Yamilka Ot 799.3 10/31/2013 FRANK DO JOHN Yamilka Ot V57.1 03/26/2014 ZAC ARCHER JOHN Yamilka Ot 786.09 06/03/2014 ALAN DO, TATA K Ot 276.51 06/03/2014 ALAN DO, TATA K Ot 276.9 06/03/2014 ALAN DO, TATA K Ot 491.21 06/03/2014 ALAN DO, TATA K Ot 593.9 06/03/2014 ALAN DO, TATA K Ot 786.2 06/03/2014 ALAN DO, TATA K Ot 977.9 06/03/2014 ALAN DO, TATA Kohler Ot E849.0 06/03/2014 ALAN DO, TATA Kohler Ot E858.9 07/23/2014 FRANK JOHN ARCHER Ot 780.09 07/23/2014 FRANK DOJOHN Ot 794.09 07/23/2014 FRANK DO JOHN Yamilka Ot V76.12 07/23/2014 PARISH VALENCIA FAC, NAVIN HOLT CCDS Ot 786.50 07/23/2014 RICARDOGERMAINEYOSEF DANCING TEACHER Ot 786.2 07/23/2014 YOSEF MOSLEY DANCING TEACHER Ot 786.50 07/23/2014 JOHN FRANK DO Ot V76.12 07/23/2014 JOHN FRANK DO Ot 780.2 07/23/2014 FRANKJOHN TORRES DO Ot 786.09 08/05/2014 MILES VALENCIA, SHELIA Wright Ot 596.8 9 08/05/2014 MILES VALENCIA, SHELIA Wright Ot 789.0 9 08/27/2014 YOSEF FRANK Ot 786.09 08/27/2014 MILES VALENCIA, SHELIA Wright Ot 596.8 9 08/27/2014 MILES VALENCIA, SHELIA Wright Ot 789.0 9 09/03/2014 MILES VALENCIA, SHELIA Wright Ot 789.0 9 09/03/2014 YOSEF FRANK TALENT SOURCING SPECIALIST Ot 786.09 09/19/2014 MILES VALENCIA, SHELIA Wright Ot 789.0 9 10/10/2014 MILES VALENCIA, SHELIA Wright Ot 596.8 9 10/10/2014 SHELIA AQUINO MD Ot 789.0 9 10/12/2014 FRANK DO, JOHN Yamilka Ot 244.9 10/12/2014 FRANK DO, JOHN Prather Ot 276.1 10/12/2014 FRANK DO, JOHN Yamilka Ot 295.90 10/12/2014 FRANK DO, JOHN Yamilka Ot 296.80 10/12/2014 FRANK DO, JOHN Yamilka Ot 305.1 10/12/2014 FRANK DO, JOHN Prather Ot 401.9 10/12/2014 FRANK DO, JOHN Yamilka Ot 493.22 10/12/2014 FRANK DO, JOHN Yamilka Ot 518.0 10/12/2014 FRANK DO, JOHN Yamilka Ot 518.81 10/12/2014 FRANK DO, JOHN Prather Ot 519.19 10/12/2014 FRANK DO, JOHN Yamilka Ot 530.81 10/12/2014 FRANK DO, JOHN Yamilka Ot 729.1 10/12/2014 FRANK DO JOHN Yamilka Ot 780.4 10/12/2014 FRANK DO JOHN Yamilka Ot E942.6 10/12/2014 FRANK DO JOHN Yamilka Ot V07.4 10/28/2014 SHELIA AQUINO MD Ot 596.8 9 10/28/2014 SHELIA AQUINO MD Ot 789.0 9 10/28/2014 YOSEF FRANK TALENT SOURCING SPECIALIST Ot 786.09 12/03/2014 RAYA CEBALLOS MD Ot 530.11 12/03/2014 RAYA CEBALLOS MD Ot 535.50 12/03/2014 RAYA CEBALLOS MD Ot 553.3 12/10/2014 CHIQUITA ZAPATA DANCING TEACHER Ot 535.50 12/10/2014 CHIQUITA ZAPATA DANCING TEACHER Ot 564.00 12/10/2014 CHIQUITA ZAPATA DANCING TEACHER Ot 789.00 01/06/2015 FRANK DOJOHN Ot 305.1 01/06/2015 FRANK JOHN ARCHER Ot 786.09 01/06/2015 ZAC ARCHER JOHN Yamilka Ot V76.12 01/13/2015 JOHN FRANK DO Ot 305.1 01/13/2015 JOHN FRANK DO Ot 786.09 01/13/2015 ZAC ARCHER JOHN Yamilka Ot V76.12 02/09/2015 JAILYN FRANKRICIA L TALENT SOURCING SPECIALIST Ot 722.4 02/09/2015 FRANK, YOSEF L TALENT SOURCING SPECIALIST Ot 790.29 02/09/2015 FRANK, YOSEF L TALENT SOURCING SPECIALIST Ot V58.69 02/09/2015 FRANK, YOSEF L TALENT SOURCING SPECIALIST Ot 722.92 02/09/2015 FRANK YOSEF L TALENT SOURCING SPECIALIST Ot 722.4 02/09/2015 FRANK, YOSEF L TALENT SOURCING SPECIALIST Ot 790.29 02/09/2015 FRANK, YOSEF L TALENT SOURCING SPECIALIST Ot V58.69 02/09/2015 FRANK, YOSEF L TALENT SOURCING SPECIALIST Ot 722.92 02/11/2015 FRANK, YOSEF L TALENT SOURCING SPECIALIST Ot 722.4 02/11/2015 FRANK, YOSEF L TALENT SOURCING SPECIALIST Ot 790.29 02/11/2015 FRANK, YOSEF L TALENT SOURCING SPECIALIST Ot V58.69 02/23/2015 FRANK, YOSEF L TALENT SOURCING SPECIALIST Ot 722.92 03/05/2015 FRANK, YOSEF L TALENT SOURCING SPECIALIST Ot 722.92 03/05/2015 JOHN FRANK DO Ot R10.9 03/16/2015 JOHN FRANK DO Ot R10.9 04/06/2015 FRANK, YOSEF L TALENT SOURCING SPECIALIST Ot 722.4 04/06/2015 FRANK, YOSEF L TALENT SOURCING SPECIALIST Ot 790.29 04/06/2015 FRANK, YOSEF L TALENT SOURCING SPECIALIST Ot V58.69 12/02/2015 ALEJANDRA VALENCIA, MEGAN Mcelroy Ot R10.2 PELVIC AND PERINEAL PAIN 12/02/2015 ALEJANDRA VALENCIA, MEGAN Mcelroy Ot Z85.41 PERSONAL HISTORY OF MALIGNANT NEOPLASM O 12/03/2015 ALEJANDRA VALENCIA, MEGAN Mcelroy Ot R10.2 PELVIC AND PERINEAL PAIN 12/03/2015 ALEJANDRA VALENCIA, MEGAN Mcelroy Ot Z85.41 PERSONAL HISTORY OF MALIGNANT NEOPLASM O 12/24/2015 YOSEF FRANK TALENT SOURCING SPECIALIST Ot 722.4 CERVICAL DISC DEGEN 12/24/2015 YOSEF FRANK TALENT SOURCING SPECIALIST Ot 790.29 OTHER ABNORMAL GLUCOSE 12/24/2015 YOSEF FRANK TALENT SOURCING SPECIALIST Ot V58.69 OTH MED,LT,CURRENT USE 12/24/2015 YOSEF FRANK TALENT SOURCING SPECIALIST Ot 722.92 DISC DIS NEC/NOS-THORAC 12/24/2015 JOHN FRANK DO Ot R10.9 UNSPECIFIED ABDOMINAL PAIN 01/15/2016 JOHN FRANK DO Ot 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, UNSPEC 02/01/2016 JOHN FRANK DO Ot 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, UNSPEC 03/31/2016 YOSEF FRANK TALENT SOURCING SPECIALIST Ot 722.4 CERVICAL DISC DEGEN 03/31/2016 YOSEF FRANK TALENT SOURCING SPECIALIST Ot 790.29 OTHER ABNORMAL GLUCOSE 03/31/2016 YOSEF FRANK TALENT SOURCING SPECIALIST Ot V58.69 OTH MED,LT,CURRENT USE 03/31/2016 YOSEF FRANK TALENT SOURCING SPECIALIST Ot 722.92 DISC DIS NEC/NOS-THORAC 03/31/2016 JOHN FRANK DO Ot R10.9 UNSPECIFIED ABDOMINAL PAIN 03/31/2016 JOHN FRANK DO Ot 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, UNSPEC 03/31/2016 ALEJANDRA VALENCIA, MEGAN Mcelroy Ot I10 ESSENTIAL (PRIMARY) HYPERTENSION 03/31/2016 ALEJANDRA VALENCIA, MEGAN Mcelroy Ot K59.00 CONSTIPATION, UNSPECIFIED 03/31/2016 MEGAN ROBERTS MD Ot R10.12 LEFT UPPER QUADRANT PAIN 03/31/2016 ALEJANDRA VALENCIA, MEGAN Mcelroy Ot Z79.899 OTHER REGISTER REPAIRER (CURRENT) DRUG THERAPY 03/31/2016 YOSEF FRANK TALENT SOURCING SPECIALIST Ot 722.4 CERVICAL DISC DEGEN 03/31/2016 YOSEF FRANK TALENT SOURCING SPECIALIST Ot 790.29 OTHER ABNORMAL GLUCOSE 03/31/2016 YOSEF FRANK TALENT SOURCING SPECIALIST Ot V58.69 OTH MED,LT,CURRENT USE 03/31/2016 YOSEF FRANK TALENT SOURCING SPECIALIST Ot 722.92 DISC DIS NEC/NOS-THORAC 03/31/2016 JOHN FRANK DO Ot R10.9 UNSPECIFIED ABDOMINAL PAIN 03/31/2016 JOHN FRANK DO Ot 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, UNSPEC 04/01/2016 ALEJANDRA VALENCIA, MEGAN T Ot I10 ESSENTIAL (PRIMARY) HYPERTENSION 04/01/2016 ALEJANDRA VALENCIA, MEGAN T Ot K59.00 CONSTIPATION, UNSPECIFIED 04/01/2016 ALEJANDRA VALENCIA, MEGAN T Ot R10.12 LEFT UPPER QUADRANT PAIN 04/01/2016 ALEJANDRA VALENCIA, MEGAN T Ot Z79.899 OTHER REGISTER REPAIRER (CURRENT) DRUG THERAPY 04/06/2016 MEGAN ROBERTS MD T Ot I10 ESSENTIAL (PRIMARY) HYPERTENSION 04/06/2016 ALEJANDRA VALENCIA, MEGAN T Ot K59.00 CONSTIPATION, UNSPECIFIED 04/06/2016 MEGAN ROBERTS MD T Ot R10.12 LEFT UPPER QUADRANT PAIN 04/06/2016 ALEJANDRA VALENCIA, MEGAN T Ot Z79.899 OTHER REGISTER REPAIRER (CURRENT) DRUG THERAPY 05/09/2016 YOSEF FRANK TALENT SOURCING SPECIALIST Ot 722.4 CERVICAL DISC DEGEN 05/09/2016 YOSEF FRANK TALENT SOURCING SPECIALIST Ot 790.29 OTHER ABNORMAL GLUCOSE 05/09/2016 YOSEF FRANK TALENT SOURCING SPECIALIST Ot V58.69 OTH MED,LT,CURRENT USE 05/09/2016 YOSEF FRANK TALENT SOURCING SPECIALIST Ot 722.92 DISC DIS NEC/NOS-THORAC 05/09/2016 JOHN FRANK DO Ot R10.9 UNSPECIFIED ABDOMINAL PAIN 05/09/2016 JOHN FRANK DO Ot 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, UNSPEC 05/09/2016 YOSEF FRANK TALENT SOURCING SPECIALIST Ot 722.4 CERVICAL DISC DEGEN 05/09/2016 YOSEF FRANK TALENT SOURCING SPECIALIST Ot 790.29 OTHER ABNORMAL GLUCOSE 05/09/2016 YOSEF FRANK TALENT SOURCING SPECIALIST Ot V58.69 OTH MED,LT,CURRENT USE 05/09/2016 YOSEF FRANK TALENT SOURCING SPECIALIST Ot 722.92 DISC DIS NEC/NOS-THORAC 05/09/2016 JOHN FRANK DO Ot R10.9 UNSPECIFIED ABDOMINAL PAIN 05/09/2016 JOHN FRANK DO Ot 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, UNSPEC 05/17/2016 YOSEF FRANK TALENT SOURCING SPECIALIST Ot 722.4 CERVICAL DISC DEGEN 05/17/2016 YOSEF FRANK TALENT SOURCING SPECIALIST Ot 790.29 OTHER ABNORMAL GLUCOSE 05/17/2016 FRANKYOSEF PATRICIA TALENT SOURCING SPECIALIST Ot V58.69 OTH MED,LT,CURRENT USE 05/17/2016 FRANKYOSEF TALENT SOURCING SPECIALIST Ot 722.92 DISC DIS NEC/NOS-THORAC 05/17/2016 JOHN [...] NEOPLASM OF PITUITARY GLAND 12/08/2016 YOSEF FRANK TALENT SOURCING SPECIALIST Ot 722.4 CERVICAL DISC DEGEN 12/08/2016 YOSEF FRANK TALENT SOURCING SPECIALIST Ot 790.29 OTHER ABNORMAL GLUCOSE 12/08/2016 YOSEF FRANK TALENT SOURCING SPECIALIST Ot V58.69 OTH MED,LT,CURRENT USE 12/08/2016 YOSEF FRANK TALENT SOURCING SPECIALIST Ot 722.92 DISC DIS NEC/NOS-THORAC 12/08/2016 JOHN FRANK DO Ot R10.9 UNSPECIFIED ABDOMINAL PAIN 12/08/2016 JOHN FRANK DO Ot 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, UNSPEC 12/08/2016 LEON LOMELI DO Ot 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 12/08/2016 LEON LOMELI DO Ot D35.2 BENIGN NEOPLASM OF PITUITARY GLAND 12/08/2016 HUSSAIN WEBBER MD Ot E03 .9 HYPOTHYROIDISM, UNSPECIFIED 12/08/2016 HUSSAIN WEBBER MD Ot F17.210 NICOTINE DEPENDENCE, CIGARETTES, UNCOMPL 12/08/2016 HUSSAIN WEBBER MD Ot F99 MENTAL DISORDER, NOT OTHERWISE SPECIFIED 12/08/2016 HUSSAIN WEBBER MD Ot K21 .9 GASTRO-ESOPHAGEAL REFLUX DISEASE WITHOUT 12/08/2016 HUSSAIN WEBBER MD Ot M79 .7 FIBROMYALGIA 12/08/2016 HUSSAIN WEBBER MD Ot R53 .1 WEAKNESS 12/08/2016 HUSSAIN WEBBER MD Ot Z79.899 OTHER CUSTODIAL (CURRENT) DRUG THERAPY 06/19/2017 CHIQUITA ZAPATA APRN Ot E03 .9 HYPOTHYROIDISM, UNSPECIFIED 06/19/2017 CHIQUITA ZAPATA APRN Ot F17.210 NICOTINE DEPENDENCE, CIGARETTES, UNCOMPL 06/19/2017 CHIQUITA ZAPATA APRN Ot F20 .9 SCHIZOPHRENIA, UNSPECIFIED 06/19/2017 CHIQUITA ZAPATA APRN Ot F29 UNSP PSYCHOSIS NOT DUE TO A SUBSTANCE OR 06/19/2017 CHIQUITA ZAPATA APRN Ot I10 ESSENTIAL (PRIMARY) HYPERTENSION 06/19/2017 CHIQUITA ZAPATA APRN Ot J44 .1 CHRONIC OBSTRUCTIVE PULMONARY DISEASE W 06/19/2017 CHIQUITA ZAPATA APRN Ot K21 .9 GASTRO-ESOPHAGEAL REFLUX DISEASE WITHOUT 06/19/2017 CHIQUITA ZAPATA APRN Ot R05 COUGH 06/19/2017 CHIQUITA ZAPATA APRN Ot Z79.52 REGISTER REPAIRER (CURRENT) USE OF SYSTEMIC STER 06/19/2017 CHIQUITA ZAPATA APRN Ot Z88 .1 ALLERGY STATUS TO OTHER ANTIBIOTIC AGENT 06/19/2017 CHIQUITA ZAPATA APRN Ot Z88 .3 ALLERGY STATUS TO OTHER ANTI-INFECTIVE A 06/19/2017 CHIQUITA ZAPATA APRN Ot Z90.710 ACQUIRED ABSENCE OF BOTH CERVIX AND UTER 06/21/2017 CHIQUITA ZAPATA APRN Ot E03 .9 HYPOTHYROIDISM, UNSPECIFIED 06/21/2017 CHIQUITA ZAPATA APRN Ot F17.210 NICOTINE DEPENDENCE, CIGARETTES, UNCOMPL 06/21/2017 CHIQUITA ZAPATA APRN Ot F20 .9 SCHIZOPHRENIA, UNSPECIFIED 06/21/2017 CHIQUITA ZAPATA APRN Ot F29 UNSP PSYCHOSIS NOT DUE TO A SUBSTANCE OR 06/21/2017 CHIQUITA ZAPATA APRN Ot I10 ESSENTIAL (PRIMARY) HYPERTENSION 06/21/2017 CHIQUITA ZAPATA APRN Ot J44 .1 CHRONIC OBSTRUCTIVE PULMONARY DISEASE W 06/21/2017 CHIQUITA ZAPATA APRN Ot K21 .9 GASTRO-ESOPHAGEAL REFLUX DISEASE WITHOUT 06/21/2017 CHIQUITA ZAPATA APRN Ot R05 COUGH 06/21/2017 CHIQUITA ZAPATA APRN Ot Z79.52 REGISTER REPAIRER (CURRENT) USE OF SYSTEMIC STER 06/21/2017 CHIQUITA ZAPATA APRN Ot Z88 .1 ALLERGY STATUS TO OTHER ANTIBIOTIC AGENT 06/21/2017 CHIQUITA ZAPATA APRN Ot Z88 .3 ALLERGY STATUS TO OTHER ANTI-INFECTIVE A 06/21/2017 CHIQUITA ZAPATA APRN Ot Z90.710 ACQUIRED ABSENCE OF BOTH CERVIX AND UTER 10/25/2017 JOHN FRANK DO Ot R53.83 OTHER FATIGUE 11/14/2017 JOHN FRANK DO Ot R53.83 OTHER FATIGUE 11/28/2017 JOHN FRANK DO Ot R53.83 OTHER FATIGUE 04/21/2018 YOSEF FRANK TALENT SOURCING SPECIALIST Ot 722.4 CERVICAL DISC DEGEN 04/21/2018 YOSEF FRANK TALENT SOURCING SPECIALIST Ot 790.29 OTHER ABNORMAL GLUCOSE 04/21/2018 YOSEF FRANK TALENT SOURCING SPECIALIST Ot V58.69 OT MED,LT,CURRENT USE 04/21/2018 YOSEF FRANK TALENT SOURCING SPECIALIST Ot 722.92 DISC DIS NEC/NOS-THORAC 04/21/2018 JOHN FRANK DO Ot R10.9 UNSPECIFIED ABDOMINAL PAIN 04/21/2018 JOHN FRANK DO Ot 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, UNSPEC 04/21/2018 LEON LOMELI DO Ot 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 04/21/2018 LEON LOMELI DO Ot D35.2 BENIGN NEOPLASM OF PITUITARY GLAND 04/21/2018 JOHN FRANK DO Ot R53.83 OTHER FATIGUE 04/21/2018 GRACIELA HO MD, Ot E03.9 HYPOTHYROIDISM, UNSPECIFIED 04/21/2018 GRACIELA HO MD, Ot F17.210 NICOTINE DEPENDENCE, CIGARETTES, UNCOMPL 04/21/2018 GRACIELA HO MD, Ot F20.9 SCHIZOPHRENIA, UNSPECIFIED 04/21/2018 GRACIELA HO MD, Ot F32.9 MAJOR DEPRESSIVE DISORDER, SINGLE EPISOD 04/21/2018 GRACIELA HO MD Ot I10 ESSENTIAL (PRIMARY) HYPERTENSION 04/21/2018 GRACIELA HO MD, Ot J44.1 CHRONIC OBSTRUCTIVE PULMONARY DISEASE W 04/21/2018 GRACIELA HO MD, Ot K21.9 GASTRO-ESOPHAGEAL REFLUX DISEASE WITHOUT 04/21/2018 GRACIELA HO MD Ot R05 COUGH 04/21/2018 GRACIELA HO MD Ot Z79.52 REGISTER REPAIRER (CURRENT) USE OF SYSTEMIC STER 04/21/2018 GRACIELA HO MD Ot Z87.01 PERSONAL HISTORY OF PNEUMONIA (RECURRENT 04/21/2018 GRACIELA HO MD Ot Z88.1 ALLERGY STATUS TO OTHER ANTIBIOTIC AGENT 04/21/2018 GRACIELA HO MD, Ot Z88.8 ALLERGY STATUS TO [facility] DRUG/MEDS/BIOL SUB 04/21/2018 GRACIELA HO MD Ot Z90.710 ACQUIRED ABSENCE OF BOTH CERVIX AND UTER 04/21/2018 GRACIELA HO MD Ot Z91.041 RADIOGRAPHIC DYE ALLERGY STATUS 04/22/2018 YOSEF FRANK TALENT SOURCING SPECIALIST Ot 722.4 CERVICAL DISC DEGEN 04/22/2018 YOSEF FRANK TALENT SOURCING SPECIALIST Ot 790.29 OTHER ABNORMAL GLUCOSE 04/22/2018 YOSEF FRANK TALENT SOURCING SPECIALIST Ot V58.69 OTH MED,LT,CURRENT USE 04/22/2018 YOSEF FRANK TALENT SOURCING SPECIALIST Ot 722.92 DISC DIS NEC/NOS-THORAC 04/22/2018 JOHN FRANK DO Ot R10.9 UNSPECIFIED ABDOMINAL PAIN 04/22/2018 JOHN FRANK DO Ot 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, UNSPEC 04/22/2018 LEON LOMELI DO Ot 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 04/22/2018 LEON LOMELI DO Ot D35.2 BENIGN NEOPLASM OF PITUITARY GLAND 04/22/2018 JOHN FRANK DO Ot R53.83 OTHER FATIGUE 04/25/2018 GRACIELA HO MD, Ot E03.9 HYPOTHYROIDISM, UNSPECIFIED 04/25/2018 GRACIELA HO MD Ot F17.210 NICOTINE DEPENDENCE, CIGARETTES, UNCOMPL 04/25/2018 GRACIELA HO MD, Ot F20.9 SCHIZOPHRENIA, UNSPECIFIED 04/25/2018 GRACIELA HO MD, Ot F32.9 MAJOR DEPRESSIVE DISORDER, SINGLE EPISOD 04/25/2018 GRACIELA HO MD, Ot I10 ESSENTIAL (PRIMARY) HYPERTENSION 04/25/2018 GRACIELA HO MD, Ot J44.1 CHRONIC OBSTRUCTIVE PULMONARY DISEASE W 04/25/2018 GRACIELA HO MD Ot K21.9 GASTRO-ESOPHAGEAL REFLUX DISEASE WITHOUT 04/25/2018 GRACIELA HO MD Ot R05 COUGH 04/25/2018 GRACIELA HO MD, Ot Z79.52 REGISTER REPAIRER (CURRENT) USE OF SYSTEMIC STER 04/25/2018 GRACIELA HO MD, Ot Z87.01 PERSONAL HISTORY OF PNEUMONIA (RECURRENT 04/25/2018 GRACIELA HO MD, Ot Z88.1 ALLERGY STATUS TO OTHER ANTIBIOTIC AGENT 04/25/2018 GRACIELA HO MD, Ot Z88.8 ALLERGY STATUS TO [facility] DRUG/MEDS/BIOL SUB 04/25/2018 GRACIELA HO MD Ot Z90.710 ACQUIRED ABSENCE OF BOTH CERVIX AND UTER 04/25/2018 GRACIELA HO MD, Ot Z91.041 RADIOGRAPHIC DYE ALLERGY STATUS 11/14/2018 YOSEF FRANK Ot 722.4 CERVICAL DISC DEGEN 11/14/2018 YOSEF FRANK TALENT SOURCING SPECIALIST Ot 790.29 OTHER ABNORMAL GLUCOSE 11/14/2018 YOSEF FRANK Ot V58.69 OTH MED,LT,CURRENT USE 11/14/2018 YOSEF FRANK TALENT SOURCING SPECIALIST Ot 722.92 DISC DIS NEC/NOS-THORAC 11/14/2018 JOHN FRANK DO Ot R10.9 UNSPECIFIED ABDOMINAL PAIN 11/14/2018 JOHN FRANK DO Ot 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, UNSPEC 11/14/2018 LEON LOMELI DO Ot 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 11/14/2018 LEON LOMELI DO Ot D35.2 BENIGN NEOPLASM OF PITUITARY GLAND 11/14/2018 JOHN FRANK DO Ot R53.83 OTHER FATIGUE 11/23/2018 GRACIELA HO MD Ot Z02.89 ENCOUNTER FOR OTHER ADMINISTRATIVE EXAMI 06/29/2019 GRACIELA HO MD Ot E03.9 HYPOTHYROIDISM, UNSPECIFIED 06/29/2019 GRACIELA HO MD Ot E87.5 HYPERKALEMIA 06/29/2019 GRACIELA HO MD, Ot F20.9 SCHIZOPHRENIA, UNSPECIFIED 06/29/2019 GRACIELA HO MD, Ot F32.9 MAJOR DEPRESSIVE DISORDER, SINGLE EPISOD 06/29/2019 GRACIELA HO MD Ot I10 ESSENTIAL (PRIMARY) HYPERTENSION 06/29/2019 GRACIELA HO MD, Ot J44.9 CHRONIC OBSTRUCTIVE PULMONARY DISEASE, U 06/29/2019 GRACIELA HO MD, Ot K21.9 GASTRO-ESOPHAGEAL REFLUX DISEASE WITHOUT 06/29/2019 GRACIELA HO MD Ot R53.1 WEAKNESS 06/29/2019 GRACIELA HO MD Ot Z77.22 CNTCT W AND EXPSR TO ENVIRON TOBACCO SMO 06/29/2019 GRACIELA HO MD Ot Z79.52 CUSTODIAL (CURRENT) USE OF SYSTEMIC STER 06/29/2019 EGEGIK MD, GRACIELA D Ot Z88.1 ALLERGY STATUS TO OTHER ANTIBIOTIC AGENT 06/29/2019 GRACIELA HO MD Ot Z88.8 ALLERGY STATUS TO [facility] DRUG/MEDS/BIOL SUB 06/29/2019 YOSEF FRANK TALENT SOURCING SPECIALIST Ot 722.4 CERVICAL DISC DEGEN 06/29/2019 YOSEF FRANK TALENT SOURCING SPECIALIST Ot 790.29 OTHER ABNORMAL GLUCOSE 06/29/2019 YOSEF FRANK TALENT SOURCING SPECIALIST Ot V58.69 OTH MED,LT,CURRENT USE 06/29/2019 YOSEF FRANK TALENT SOURCING SPECIALIST Ot 722.92 DISC DIS NEC/NOS-THORAC 06/29/2019 JOHN FRANK DO Ot R10.9 UNSPECIFIED ABDOMINAL PAIN 06/29/2019 JOHN FRANK DO Ot 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, UNSPEC 06/29/2019 LEON LOMELI DO Ot 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 06/29/2019 LEON LOMELI DO Ot D35.2 BENIGN NEOPLASM OF PITUITARY GLAND 06/29/2019 JOHN FRANK DO Ot R53.83 OTHER FATIGUE 06/29/2019 GRACIELA HO MD Ot Z02.89 ENCOUNTER FOR OTHER ADMINISTRATIVE EXAMI 07/02/2019 GRACIELA HO MD Ot E03.9 HYPOTHYROIDISM, UNSPECIFIED 07/02/2019 GRACIELA HO MD Ot E87.5 HYPERKALEMIA 07/02/2019 GRACIELA HO MD Ot F20.9 SCHIZOPHRENIA, UNSPECIFIED 07/02/2019 GRACIELA HO MD, Ot F32.9 MAJOR DEPRESSIVE DISORDER, SINGLE EPISOD 07/02/2019 GRACIELA HO MD Ot I10 ESSENTIAL (PRIMARY) HYPERTENSION 07/02/2019 GRACIELA HO MD Ot J44.9 CHRONIC OBSTRUCTIVE PULMONARY DISEASE, U 07/02/2019 GRACIELA HO MD, Ot K21.9 GASTRO-ESOPHAGEAL REFLUX DISEASE WITHOUT 07/02/2019 GRACIELA HO MD Ot R53.1 WEAKNESS 07/02/2019 GRACIELA HO MD Ot Z77.22 CNTCT W AND EXPSR TO ENVIRON TOBACCO SMO 07/02/2019 GRACIELA HO MD Ot Z79.52 REGISTER REPAIRER (CURRENT) USE OF SYSTEMIC STER 07/02/2019 GRACIELA HO MD Ot Z88.1 ALLERGY STATUS TO OTHER ANTIBIOTIC AGENT 07/02/2019 GRACIELA HO MD Ot Z88.8 ALLERGY STATUS TO [facility] DRUG/MEDS/BIOL SUB 07/20/2019 GRACIELA HO MD Ot E03.9 HYPOTHYROIDISM, UNSPECIFIED 07/20/2019 GRACIELA HO MD Ot E87.5 HYPERKALEMIA 07/20/2019 GRACIELA HO MD Ot F20.9 SCHIZOPHRENIA, UNSPECIFIED 07/20/2019 GRACIELA HO MD Ot F32.9 MAJOR DEPRESSIVE DISORDER, SINGLE EPISOD 07/20/2019 GRACIELA HO MD Ot I10 ESSENTIAL (PRIMARY) HYPERTENSION 07/20/2019 GRACIELA HO MD Ot J44.9 CHRONIC OBSTRUCTIVE PULMONARY DISEASE, U 07/20/2019 GRACIELA HO MD Ot K21.9 GASTRO-ESOPHAGEAL REFLUX DISEASE WITHOUT 07/20/2019 GRACIELA HO MD Ot R53.1 WEAKNESS 07/20/2019 GRACIELA HO MD Ot Z77.22 CNTCT W AND EXPSR TO ENVIRON TOBACCO SMO 07/20/2019 GRACIELA HO MD Ot Z79.52 CUSTODIAL (CURRENT) USE OF SYSTEMIC STER 07/20/2019 GRACIELA HO MD Ot Z88.1 ALLERGY STATUS TO OTHER ANTIBIOTIC AGENT 07/20/2019 GRACIELA HO MD Ot Z88.8 ALLERGY STATUS TO [facility] DRUG/MEDS/BIOL SUB 07/29/2019 GRACIELA HO MD Ot E03.9 HYPOTHYROIDISM, UNSPECIFIED 07/29/2019 GRACIELA HO MD Ot E87.5 HYPERKALEMIA 07/29/2019 GRACIELA HO MD Ot F20.9 SCHIZOPHRENIA, UNSPECIFIED 07/29/2019 GRACIELA HO MD Ot F32.9 MAJOR DEPRESSIVE DISORDER, SINGLE EPISOD 07/29/2019 GRACIELA HO MD Ot I10 ESSENTIAL (PRIMARY) HYPERTENSION 07/29/2019 GRACIELA HO MD Ot J44.9 CHRONIC OBSTRUCTIVE PULMONARY DISEASE, U 07/29/2019 GRACIELA HO MD Ot K21.9 GASTRO-ESOPHAGEAL REFLUX DISEASE WITHOUT 07/29/2019 GRACIELA HO MD Ot R53.1 WEAKNESS 07/29/2019 GRACIELA HO MD Ot Z77.22 CNTCT W AND EXPSR TO ENVIRON TOBACCO SMO 07/29/2019 GRACIELA HO MD, Ot 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2 BENIGN NEOPLASM OF PITUITARY GLAND 11/11/2019 JOHN FRANK DO Ot R53.83 OTHER FATIGUE 11/11/2019 GRACIELA HO MD Ot Z02.89 ENCOUNTER FOR OTHER ADMINISTRATIVE EXAMI 11/14/2019 JOHN FRANK DO Ot H53.8 OTHER VISUAL DISTURBANCES 11/14/2019 JOHN FRANK DO Ot H66.90 OTITIS MEDIA, UNSPECIFIED, UNSPECIFIED E 11/14/2019 JOHN FRANK DO Ot H69.83 OTHER SPECIFIED DISORDERS OF EUSTACHIAN 11/14/2019 JOHN FRANK DO Ot J34.89 OTHER SPECIFIED DISORDERS OF NOSE AND NA 11/19/2019 JOHN FRANK DO Ot H53.8 OTHER VISUAL DISTURBANCES 11/19/2019 JOHN FRANK DO Ot H66.90 OTITIS MEDIA, UNSPECIFIED, UNSPECIFIED E 11/19/2019 JOHN FRANK DO Ot H69.83 OTHER SPECIFIED DISORDERS OF EUSTACHIAN 11/19/2019 JOHN FRANK DO Ot J34.89 OTHER SPECIFIED DISORDERS OF NOSE AND NA Procedures There is no data. Results Test Result Range Complete urinalysis with reflex to cultu re - 12/02/15 16:20 Urine color determination YELLOW NRG Urine clarity determination CLEAR NR G Urine pH measurement by test strip 6.5 5-9 Specific gravity of urine by test strip 1.010 1.016-1.022 Urine protein assay by test strip, semi-quantitative NEGATIVE NEGATIVE Urine glucose detection by automated test strip NE GATIVE NEGATIVE Erythrocytes detection in urine sediment by light micr oscopy NEGATIVE NEGATIVE Urine ketones detection by automated test strip NE GATIVE NEGATIVE Urine nitrite detection by test strip NEGATIVE NEGATIVE Urine total bilirubin detection by test strip NEGA TIVE NEGATIVE Urine urobilinogen measurement by automated test strip (mass/volume) NORMAL NORMAL Urine leukocyte esterase detection by dipstick NEG ATIVE NEGATIVE Automated urine sediment erythrocyte cou nt by microscopy (number/high power field) NONE NRG Automated urine sediment leukocyte count by microscopy (number/high power field) NONE NRG Bacteria detection in urine sediment by light microsco py NONE NRG Squamous epithelial cells detection in u rine sediment by light microscopy 2-5 NRG Crystals detection in urine sediment by light microsco py NONE NRG Casts detection in urine sediment by light microscopy NONE NRG Mucus detection in urine sediment by light microscopy NEGATIVE NRG Complete urinalysis with reflex to culture NO NRG Complete urinalysis with reflex to cultu re - 03/31/16 16:06 Urine color determination YELLOW NRG Urine clarity determination CLEAR NR G Urine pH measurement by test strip 7 5-9 Specific gravity of urine by test strip 1.010 1.016-1.022 Urine protein assay by test strip, semi-quantitative NEGATIVE NEGATIVE Urine glucose detection by automated test strip NE GATIVE NEGATIVE Erythrocytes detection in urine sediment by light micr oscopy NEGATIVE NEGATIVE Urine ketones detection by automated test strip NE GATIVE NEGATIVE Urine nitrite detection by test strip NEGATIVE NEGATIVE Urine total bilirubin detection by test strip NEGA TIVE NEGATIVE Urine urobilinogen measurement by automated test strip (mass/volume) NORMAL NORMAL Urine leukocyte esterase detection by dipstick NEG ATIVE NEGATIVE Automated urine sediment erythrocyte cou nt by microscopy (number/high power field) NONE NRG Automated urine sediment leukocyte count by microscopy (number/high power field) NONE NRG Bacteria detection in urine sediment by light microsco py FEW NRG Squamous epithelial cells detection in u rine sediment by light microscopy 2-5 NRG Crystals detection in urine sediment by light microsco py NONE NRG Casts detection in urine sediment by light microscopy NONE NRG Mucus detection in urine sediment by light microscopy NEGATIVE NRG Complete urinalysis with reflex to culture NO NRG Complete blood count (CBC) with automate d white blood cell (WBC) differential - 03/31/16 16:21 Blood leukocytes automated count (number/volume) 5.3 10*3/uL 4.3-11.0 Blood erythrocytes automated count (number/volume) 4.10 10*6/uL 4.35-5.85 Venous blood hemoglobin measurement (mass/volume) 13.1 g/dL 11.5-16.0 Blood hematocrit (volume fraction) 38 % 35-52 Automated erythrocyte mean corpuscular volume 93 [ foz_us] 80-99 Automated erythrocyte mean corpuscular h emoglobin (mass per erythrocyte) 32 pg 25-34 Automated erythrocyte mean corpuscular h emoglobin concentration measurement (mass/volume) 34 g/dL 32-36 Automated erythrocyte distribution width ratio 13. 0 % 10.0- 14.5 Automated blood platelet count (count/volume) 171 10*3/uL [...] 10*3 1.0-4.0 Blood monocytes automated count (number/volume) 0. 4 10*3 0.0-1.0 Automated eosinophil count 0.2 10*3/uL 0 .0-0.3 Automated blood basophil count (count/volume) 0.0 10*3/uL 0.0-0.1 Comprehensive metabolic panel - 12/01/16 16:21 Serum or plasma sodium measurement (moles/volume) 133 mmol/L 135-145 Serum or plasma potassium measurement (moles/volume) 3.9 mmol/L 3.6-5.0 Serum or plasma chloride measurement (moles/volume) 98 mmol/L 98-107 Carbon dioxide 24 mmol/L 21-32 Serum or plasma anion gap determination (moles/volume) 11 mmol/L 5-14 Serum or plasma urea nitrogen measurement (mass/volume ) 16 mg/dL 7-18 Serum or plasma creatinine measurement (mass/volume) 1.10 mg/dL 0.60-1.30 Serum or plasma urea nitrogen/creatinine mass ratio 15 NRG Serum or plasma creatinine measurement w ith calculation of estimated glomerular filtration rate 51 NRG Serum or plasma glucose measurement (mass/volume) 92 mg/dL 70-105 Serum or plasma calcium measurement (mass/volume) 9.4 mg/dL 8.5-10.1 Serum or plasma total bilirubin measurement (mass/volu me) 0.4 mg/dL 0.1-1.0 Serum or plasma alkaline phosphatase darya surement (enzymatic activity/volume) 68 U/L 40-136 Serum or plasma aspartate aminotransfera se measurement (enzymatic activity/volume) 45 U/L 5-34 Serum or plasma alanine aminotransferase measurement (enzymatic activity/volume) 29 U/L 0-55 Serum or plasma protein measurement (mass/volume) 6.9 g/dL 6.4-8.2 Serum or plasma albumin measurement (mass/volume) 4.3 g/dL 3.2-4.5 Magnesium - 03/31/16 16:21 Magnesium 1.9 mg/dL 1.8-2.4 THYROID STIMULATING HORMONE - 03/31/16 1 6:21 THYROID STIMULATING HORMONE 3.88 u[iU]/mL 0.35-4.94 Serum or plasma thyroxine (T4) free cristel urement (mass/volume) - 03/31/16 16:21 Serum or plasma thyroxine (T4) free measurement (mass/ volume) 0.68 ng/dL 0.70-1.48 Serum or plasma C reactive protein measu rement (mass/volume) - 03/31/16 16:21 Serum or plasma C reactive protein measurement (mass/v olume) 1.45 mg/dL 0.00-0.50 Whole blood basic metabolic panel - 06/17 16:14 Serum or plasma sodium measurement (moles/volume) 137 mmol/L 135-145 Serum or plasma potassium measurement (moles/volume) 3.9 mmol/L 3.6-5.0 Serum or plasma chloride measurement (moles/volume) 100 mmol/L 98-107 Carbon dioxide 25 mmol/L 21-32 Serum or plasma anion gap determination (moles/volume) 12 mmol/L 5-14 Serum or plasma urea nitrogen measurement (mass/volume ) 11 mg/dL 7-18 Serum or plasma creatinine measurement (mass/volume) 1.24 mg/dL 0.60-1.30 Serum or plasma urea nitrogen/creatinine mass ratio 9 NRG Serum or plasma creatinine measurement w ith calculation of estimated glomerular filtration rate 44 NRG Serum or plasma glucose measurement (mass/volume) 81 mg/dL 70-105 Serum or plasma calcium measurement (mass/volume) 9.9 mg/dL 8.5-10.1 Complete urinalysis with reflex to cultu re - 12/08/16 07:30 Urine color determination YELLOW NRG Urine clarity determination CLEAR NR G Urine pH measurement by test strip 8 5-9 Specific gravity of urine by test strip 1.010 1.016-1.022 Urine protein assay by test strip, semi-quantitative NEGATIVE NEGATIVE Urine glucose detection by automated test strip NE GATIVE NEGATIVE Erythrocytes detection in urine sediment by light micr oscopy NEGATIVE NEGATIVE Urine ketones detection by automated test strip NE GATIVE NEGATIVE Urine nitrite detection by test strip NEGATIVE NEGATIVE Urine total bilirubin detection by test strip NEGA TIVE NEGATIVE Urine urobilinogen measurement by automated test strip (mass/volume) NORMAL NORMAL Urine leukocyte esterase detection by dipstick NEG ATIVE NEGATIVE Automated urine sediment erythrocyte cou nt by microscopy (number/high power field) NONE NRG Automated urine sediment leukocyte count by microscopy (number/high power field) NONE NRG Bacteria detection in urine sediment by light microsco py TRACE NRG Squamous epithelial cells detection in u rine sediment by light microscopy 10-25 NRG Crystals detection in urine sediment by light microsco py NONE NRG Casts detection in urine sediment by light microscopy NONE NRG Mucus detection in urine sediment by light microscopy NEGATIVE NRG Complete urinalysis with reflex to culture NO NRG Urine drug screening test - 12/08/16 07: 30 Urine phencyclidine detection by screening method NEGATIVE NEGATIVE Urine benzodiazepines detection by screening method NEGATIVE NEGATIVE Urine cocaine detection NEGATIVE NEGATI VE Urine amphetamines detection by screening method N EGATIVE NEGATIVE Urine methamphetamine detection by screening method NEGATIVE NEGATIVE Urine cannabinoids detection by screening method N EGATIVE NEGATIVE Urine opiates detection by screening method NEGATI VE NEGATIVE Urine barbiturates detection NEGATIVE N EGATIVE Screening urine tricyclic antidepressants detection POSITIVE NEGATIVE Urine methadone detection by screening method NEGA TIVE NEGATIVE Urine oxycodone detection NEGATIVE NEGA TIVE Urine propoxyphene detection NEGATIVE N EGATIVE Complete blood count (CBC) with automate d white blood cell (WBC) differential - 12/08/16 07:55 Blood leukocytes automated count (number/volume) 5.8 10*3/uL 4.3-11.0 Blood erythrocytes automated count (number/volume) 4.25 10*6/uL 4.35-5.85 Venous blood hemoglobin measurement (mass/volume) 13.7 g/dL 11.5-16.0 Blood hematocrit (volume fraction) 41 % 35-52 Automated erythrocyte mean corpuscular volume 97 [ foz_us] 80-99 Automated erythrocyte mean corpuscular h emoglobin (mass per erythrocyte) 32 pg 25-34 Automated erythrocyte mean corpuscular h emoglobin concentration measurement (mass/volume) 33 g/dL 32-36 Automated erythrocyte distribution width ratio 13. 7 % 10.0- 14.5 Automated blood platelet count (count/volume) 154 10*3/uL [...] 10*3 1.0-4.0 Blood monocytes automated count (number/volume) 0. 5 10*3 0.0-1.0 Automated eosinophil count 0.2 10*3/uL 0 .0-0.3 Automated blood basophil count (count/volume) 0.0 10*3/uL 0.0-0.1 Comprehensive metabolic panel - 12/08/16 07:55 Serum or plasma sodium measurement (moles/volume) 137 mmol/L 135-145 Serum or plasma potassium measurement (moles/volume) 4.0 mmol/L 3.6-5.0 Serum or plasma chloride measurement (moles/volume) 101 mmol/L 98-107 Carbon dioxide 24 mmol/L 21-32 Serum or plasma anion gap determination (moles/volume) 12 mmol/L 5-14 Serum or plasma urea nitrogen measurement (mass/volume ) 10 mg/dL 7-18 Serum or plasma creatinine measurement (mass/volume) 1.09 mg/dL 0.60-1.30 Serum or plasma urea nitrogen/creatinine mass ratio 9 NRG Serum or plasma creatinine measurement w ith calculation of estimated glomerular filtration rate 51 NRG Serum or plasma glucose measurement (mass/volume) 90 mg/dL 70-105 Serum or plasma calcium measurement (mass/volume) 8.8 mg/dL 8.5-10.1 Serum or plasma total bilirubin measurement (mass/volu me) 0.4 mg/dL 0.1-1.0 Serum or plasma alkaline phosphatase darya surement (enzymatic activity/volume) 78 U/L 40-136 Serum or plasma aspartate aminotransfera se measurement (enzymatic activity/volume) 26 U/L 5-34 Serum or plasma alanine aminotransferase measurement (enzymatic activity/volume) 23 U/L 0-55 Serum or plasma protein measurement (mass/volume) 6.6 g/dL 6.4-8.2 Serum or plasma albumin measurement (mass/volume) 4.1 g/dL 3.2-4.5 Influenza virus A and B antigen detectio n - 06/19/17 12:26 FLU RESULT NEGATIVE FOR INFLUENZA A AND B ANTIGENS BY IA NRG Complete blood count (CBC) with automate d white blood cell (WBC) differential - 04/21/18 14:15 Blood leukocytes automated count (number/volume) 3.7 10*3/uL 4.3-11.0 Blood erythrocytes automated count (number/volume) 3.94 10*6/uL 4.35-5.85 Venous blood hemoglobin measurement (mass/volume) 13.3 g/dL 11.5-16.0 Blood hematocrit (volume fraction) 40 % 35-52 Automated erythrocyte mean corpuscular volume 101 [foz_us] 80-99 Automated erythrocyte mean corpuscular h emoglobin (mass per erythrocyte) 34 pg 25-34 Automated erythrocyte mean corpuscular h emoglobin concentration measurement (mass/volume) 34 g/dL 32-36 Automated erythrocyte distribution width ratio 13. 7 % 10.0- 14.5 Automated blood platelet count (count/volume) 151 10*3/uL 130-400 Automated blood platelet mean volume measurement 10.2 [foz_us] 7.4-10.4 Automated blood neutrophils/100 leukocytes 60 % 42-75 Automated blood lymphocytes/100 leukocytes 33 % 12-44 Blood monocytes/100 leukocytes 7 % 0-12 Automated blood eosinophils/100 leukocytes 0 % 0-10 Automated blood basophils/100 leukocytes 0 % 0-10 Blood neutrophils automated count (number/volume) 2.2 10*3 1.8-7.8 Blood lymphocytes automated count (number/volume) 1.2 10*3 1.0-4.0 Blood monocytes automated count (number/volume) 0. 3 10*3 0.0-1.0 Automated eosinophil count 0.0 10*3/uL 0 .0-0.3 Automated blood basophil count (count/volume) 0.0 10*3/uL 0.0-0.1 Blood lactic acid measurement (moles/vol ume) - 04/21/18 14:15 Blood lactic acid measurement (moles/volume) 1.85 mmol/L 0.50-2.00 Comprehensive metabolic panel - 04/21/18 14:15 Serum or plasma sodium measurement (moles/volume) 139 mmol/L 135-145 Serum or plasma potassium measurement (moles/volume) 4.8 mmol/L 3.6-5.0 Serum or plasma chloride measurement (moles/volume) 102 mmol/L 98-107 Carbon dioxide 25 mmol/L 21-32 Serum or plasma anion gap determination (moles/volume) 12 mmol/L 5-14 Serum or plasma urea nitrogen measurement (mass/volume ) 18 mg/dL 7-18 Serum or plasma creatinine measurement (mass/volume) 1.40 mg/dL 0.60-1.30 Serum or plasma urea nitrogen/creatinine mass ratio 13 NRG Serum or plasma creatinine measurement w ith calculation of estimated glomerular filtration rate 38 NRG Serum or plasma glucose measurement (mass/volume) 104 mg/dL 70-105 Serum or plasma calcium measurement (mass/volume) 9.5 mg/dL 8.5-10.1 Serum or plasma total bilirubin measurement (mass/volu me) 0.2 mg/dL 0.1-1.0 Serum or plasma alkaline phosphatase darya surement (enzymatic activity/volume) 77 U/L 40-136 Serum or plasma aspartate aminotransfera se measurement (enzymatic activity/volume) 31 U/L 5-34 Serum or plasma alanine aminotransferase measurement (enzymatic activity/volume) 29 U/L 0-55 Serum or plasma protein measurement (mass/volume) 7.6 g/dL 6.4-8.2 Serum or plasma albumin measurement (mass/volume) 4.6 g/dL 3.2-4.5 Serum or plasma C reactive protein measu rement (mass/volume) - 04/21/18 14:15 Serum or plasma C reactive protein measurement (mass/v olume) 1.34 mg/dL 0.00-0.50 Bacterial blood culture - 04/21/18 14:15 Bacterial blood culture NG NRG Bacterial blood culture - 04/21/18 14:45 Bacterial blood culture NG NRG Complete blood count (CBC) with automate d white blood cell (WBC) differential - 06/29/19 16:50 Blood leukocytes automated count (number/volume) 5.0 10*3/uL 4.3-11.0 Blood erythrocytes automated count (number/volume) 4.43 10*6/uL 4.35-5.85 Venous blood hemoglobin measurement (mass/volume) 14.4 g/dL 11.5-16.0 Blood hematocrit (volume fraction) 43 % 35-52 Automated erythrocyte mean corpuscular volume 98 [ foz_us] 80-99 Automated erythrocyte mean corpuscular h emoglobin (mass per erythrocyte) 33 pg 25-34 Automated erythrocyte mean corpuscular h emoglobin concentration measurement (mass/volume) 33 g/dL 32-36 Automated erythrocyte distribution width ratio 13. 6 % 10.0- 14.5 Automated blood platelet count (count/volume) 155 10*3/uL 130-400 Automated blood platelet mean volume measurement 11.0 [foz_us] 7.4-10.4 Automated blood neutrophils/100 leukocytes 65 % 42-75 Automated blood lymphocytes/100 leukocytes 28 % 12-44 Blood monocytes/100 leukocytes 5 % 0-12 Automated blood eosinophils/100 leukocytes 2 % 0-10 Automated blood basophils/100 leukocytes 0 % 0-10 Blood neutrophils automated count (number/volume) 3.3 10*3 1.8-7.8 Blood lymphocytes automated count (number/volume) 1.4 10*3 1.0-4.0 Blood monocytes automated count (number/volume) 0. 3 10*3 0.0-1.0 Automated eosinophil count 0.1 10*3/uL 0 .0-0.3 Automated blood basophil count (count/volume) 0.0 10*3/uL 0.0-0.1 Serum or plasma troponin i.cardiac measu rement (mass/volume) - 06/29/19 16:50 Serum or plasma troponin i.cardiac measurement (mass/v olume) < ng/mL <0.028 Comprehensive metabolic panel - 06/29/19 16:50 Serum or plasma sodium measurement (moles/volume) 138 mmol/L 135-145 Serum or plasma potassium measurement (moles/volume) 6.6 mmol/L 3.6-5.0 Serum or plasma chloride measurement (moles/volume) 109 mmol/L 98-107 Carbon dioxide 23 mmol/L 21-32 Serum or plasma anion gap determination (moles/volume) 6 mmol/L 5-14 Serum or plasma urea nitrogen measurement (mass/volume ) 15 mg/dL 7-18 Serum or plasma creatinine measurement (mass/volume) 1.30 mg/dL 0.60-1.30 Serum or plasma urea nitrogen/creatinine mass ratio 12 NRG Serum or plasma creatinine measurement w ith calculation of estimated glomerular filtration rate 42 NRG Serum or plasma glucose measurement (mass/volume) 111 mg/dL 70-105 Serum or plasma calcium measurement (mass/volume) 8.8 mg/dL 8.5-10.1 Serum or plasma total bilirubin measurement (mass/volu me) 0.3 mg/dL 0.1-1.0 Serum or plasma alkaline phosphatase darya surement (enzymatic activity/volume) 81 U/L 40-136 Serum or plasma aspartate aminotransfera se measurement (enzymatic activity/volume) 25 U/L 5-34 Serum or plasma alanine aminotransferase measurement (enzymatic activity/volume) 20 U/L 0-55 Serum or plasma protein measurement (mass/volume) 6.9 g/dL 6.4-8.2 Serum or plasma albumin measurement (mass/volume) 4.5 g/dL 3.2-4.5 CALCIUM CORRECTED 8.4 mg/dL 8.5-10.1 Serum or plasma ethanol measurement (mas s/volume) - 06/29/19 16:50 Serum or plasma ethanol measurement (mass/volume) < mg/dL <10 Serum or plasma lithium measurement (mol es/volume) - 06/29/19 16:50 BNP PT 10.1 pg/mL <100.0 Complete urinalysis with reflex to cultu re - 06/29/19 17:12 Urine color determination YELLOW NRG Urine clarity determination CLEAR NR G Urine pH measurement by test strip 8.5 5-9 Specific gravity of urine by test strip 1.010 1.016-1.022 Urine protein assay by test strip, semi-quantitative NEGATIVE NEGATIVE Urine glucose detection by automated test strip NE GATIVE NEGATIVE Erythrocytes detection in urine sediment by light micr oscopy NEGATIVE NEGATIVE Urine ketones detection by automated test strip NE GATIVE NEGATIVE Urine nitrite detection by test strip NEGATIVE NEGATIVE Urine total bilirubin detection by test strip NEGA TIVE NEGATIVE Urine urobilinogen measurement by automated test strip (mass/volume) 0.2 mg/dL < = 1.0 Urine leukocyte esterase detection by dipstick NEG ATIVE NEGATIVE Automated urine sediment erythrocyte cou nt by microscopy (number/high power field) NONE NRG Automated urine sediment leukocyte count by microscopy (number/high power field) NONE NRG Bacteria detection in urine sediment by light microsco py TRACE NRG Squamous epithelial cells detection in u rine sediment by light microscopy RARE NRG Crystals detection in urine sediment by light microsco py NONE NRG Casts detection in urine sediment by light microscopy NONE NRG Mucus detection in urine sediment by light microscopy NEGATIVE NRG Complete urinalysis with reflex to culture NO NRG Capillary blood glucose measurement by g lucometer (mass/volume) - 06/29/19 17:25 Capillary blood glucose measurement by glucometer (mas s/volume) 99 mg/dL 70-110 Influenza virus A and B antigen detectio n - 06/29/19 17:26 FLU RESULT NEGATIVE FOR INFLUENZA A AND B ANTIGENS BY IA NRG Whole blood basic metabolic panel - 06/02 01/18 19:48 Serum or plasma sodium measurement (moles/volume) 139 mmol/L 135-145 Serum or plasma potassium measurement (moles/volume) 4.4 mmol/L 3.6-5.0 Serum or plasma chloride measurement (moles/volume) 105 mmol/L 98-107 Carbon dioxide 25 mmol/L 21-32 Serum or plasma anion gap determination (moles/volume) 9 mmol/L 5-14 Serum or plasma urea nitrogen measurement (mass/volume ) 14 mg/dL 7-18 Serum or plasma creatinine measurement (mass/volume) 1.18 mg/dL 0.60-1.30 Serum or plasma urea nitrogen/creatinine mass ratio 12 NRG Serum or plasma creatinine measurement w ith calculation of estimated glomerular filtration rate 46 NRG Serum or plasma glucose measurement (mass/volume) 86 mg/dL 70-105 Serum or plasma calcium measurement (mass/volume) 9.8 mg/dL 8.5-10.1 Encounters ACCT No. Visit Date/Time Discharge Status Pt. Type Provider Facility Loc./Unit Complaint [id number] 02/09/2015 14:44:07 ACT Document Registration [id number] 11/13/2019 11:02:00 23:59:59 CLS Outpatient JOHN FRANK DO [facility] RAD EUSTACHIAN TUBE DYSFUNCTION BILAT [id number] 06/29/2019 16:37:00 20:40:00 DIS Emergency GRACIELA HO MD [facility] ER WEAK,SOB,ARM/LE GS SHAKY [id number] 11/14/2018 15:15:00 23:59:59 CLS Outpatient GRACIELA HO MD [facility] FNS [id number] 04/21/2018 13:14:00 17:10:00 DIS Emergency GRACIELA HO MD [facility] ER PNEUMONIA [id number] 11/23/2017 10:56:00 23:59:59 CLS Preadmit JOHN FRANK DO [facility] RAD SLEEP DISTURBANCE [id number] 10/23/2017 06:41:00 23:59:59 CLS Outpatient JOHN FRANK DO [facility] CARD FATIGUE [id number] 06/19/2017 11:00:00 02/19/2 018 13:04:00 DIS Emergency CHIQUITA ZAPATA APRN [facility] ER WEAKNESS,COUGHING [id number] 12/08/2016 07:20:00 017 09:52:00 DIS Emergency AKBAR VALENCIA, HUSSAIN Kohler [facility] ER WEAKNESS/SHAKEY/VOMITIN G 4 DAYS AGO/FATIGUE [id number] 10/27/2016 13:50:00 017 23:59:59 CLS Outpatient LOMELI DO, LEON L [facility] RAD 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 [id number] 10/06/2016 14:00:00 017 23:59:59 CLS Preadmit LOMELI DO, LEON L [facility] RAD 227.3 PITUITARY ADENOM A [id number] 10/06/2016 13:45:00 017 23:59:59 CLS Preadmit JOHN FRANK DO [facility] RAD SCREENING [id number] 09/30/2016 16:05:00 017 23:59:59 CLS Outpatient LOMELI DO, LEON L [facility] LAB 253.1 [id number] 05/20/2016 09:30:00 017 23:59:59 CLS Preadmit LOMELI DO, LEON L [facility] RAD PITUITARY ADENOMA [id number] 03/31/2016 15:32:00 016 17:46:00 DIS Emergency MEGAN ROBERTS MD [facility] ER ABD PAIN [id number] 12/24/2015 11:29:00 016 23:59:59 CLS Outpatient JOHN FRANK DO [facility] RAD INCREASED PROLA CTIN LEVEL [id number] 12/02/2015 15:50:00 18:27:00 DIS Emergency MEGAN ROBERTS MD [facility] ER BLADDER PROBLEM S [id number] 07/16/2015 13:52:00 016 23:59:59 CLS Outpatient CRUZ RUGGIERO APRN [facility] QUICK [id number] 02/09/2015 13:48:00 015 23:59:59 CLS Outpatient JOHN FRANK DO [facility] RAD ABD PAIN [id number] 01/27/2015 09:19:00 015 23:59:59 CLS Outpatient YOSEF FRANK [facility] RAD BACK PAIN WITH RADICULOPATHY [id number] 01/20/2015 08:48:00 015 23:59:59 CLS Outpatient YOSEF FRANK [facility] RAD NECK/BACK PAIN,HYPERGLYCEMIA,MED RISK,ELEVATED GLU [id number] 12/10/2014 14:49:00 015 16:52:00 DIS Emergency CHIQUITA ZAPATA APRN [facility] ER [id number] 12/03/2014 08:10:00 015 12:30:00 DIS Outpatient RAYA CEBALLOS MD [facility] SDC [id number] 11/28/2014 12:42:00 015 23:59:59 CLS Outpatient JOHN FRANK DO [facility] RAD [id number] 11/17/2014 16:51:00 015 23:59:59 CLS Preadmit JOHN FRANK DO [facility] REHAB [id number] 10/05/2014 19:31:00 015 12:00:00 DIS Inpatient JOHN FRANK DO [facility] 4TH [id number] 07/29/2014 09:49:00 015 23:59:59 CLS Outpatient YOSEF FRANK [facility] RAD [id number] 07/25/2014 08:27:00 015 23:59:59 CLS Outpatient SHELIA AQUINO MD [facility] RAD [id number] 07/23/2014 16:14:00 015 23:59:59 CLS Outpatient SHELIA AQUINO MD [facility] LAB [id number] 06/03/2014 15:00:00 015 16:32:00 DIS Emergency TATA PHILLIPS DO [facility] ER [id number] 02/26/2014 12:58:00 23:59:59 CLS Outpatient JOHN FRANK DO [facility] RAD [id number] 12/09/2013 08:54:00 23:59:59 CLS Outpatient JOHN FRANK DO [facility] RT [id number] 11/05/2013 08:53:00 23:59:59 CLS Outpatient JOHN FRANK DO [facility] RAD [id number] 10/29/2013 08:00:00 08:49:00 DIS Outpatient JOHN FRANK DO [facility] REHAB [id number] 05/13/2013 16:35:00 23:59:59 CLS Outpatient YOSEF MOSLEY Mirela VALLADARES [facility] RAD [id number] 04/08/2013 11:26:00 13:40:00 DIS Emergency AYANNA SARKAR [facility] ER [id number] 01/28/2013 12:04:00 23:59:59 CLS Outpatient PARISH VALENCIA FACC, NAVIN HOLT CC DS [facility] RAD [id number] 01/26/2013 11:37:00 13:50:00 DIS Inpatient JOHN FRANK DO [facility] ICU [id number] 10/12/2012 13:00:00 23:59:59 CLS Outpatient JOHN FRANK DO [facility] RAD [id number] 09/06/2012 11:52:00 013 23:59:59 CLS Outpatient JOHN FRANK DO [facility] RAD [id number] 12/08/2019 21:12:[address] Emergency JUAN SANCHEZ [facility] ER HEADACHE, L EYE PAIN, WEAKNE SS [id number] 05/28/2012 15:10:00 Document Registration [id number] 04/30/2012 08:32:00 Document Registration [id number] 02/09/2012 21:00:00 Document Registration
--- NOTE | 2019-12-08 21:41 | ED General ---
General Chief Complaint: General Problems/Pain Stated Complaint: HEADACHE, L EYE PAIN, WEAKNESS Source of Information: Patient Exam Limitations: No Limitations History of Present Illness Date Seen by Provider: Dec 08, 2019 Time Seen by Provider: 21:36 Initial Comments C/O intermittent left confucianism pressure, drooping of left eyelid, and blurred vision of left eye x 3 months. States she follow up with her PCP for symptoms and he "seemed unconcerned". Today she woke with the same symptoms and they have persisted throughout the day. Additionally she reports sore throat that started today. Denies taking any analgesics for the pain. Denies fever, chills, neck pain, vertigo, syncope, weakness, or nausea/vomiting. Timing/Duration: Intermittent, Other (See HPI) Severity: Mild Associated Systoms: No Chest Pain, No Cough; Headaches; No Nausea/Vomiting, No Rash, No Shortness of Air, No Syncope, No Weakness Allergies and Home Medications Allergies Coded Allergies: cephalexin (Unverified Allergy, Unknown, 12/03/14) povidone-iodine (Unverified Allergy, Unknown, 07/15/10) soap (Unverified Allergy, Unknown, 07/15/10) Home Medications Acetaminophen With Codeine 1 Each Tablet, 1 TAB PO QID PRN for COUGH, (Reported) Albuterol Sulfate 2.5 Mg/3 Ml Vial.neb, 2.5 MG INH Q4H PRN for WHEEZING Prescribed by: GRACIELA HO on 04/21/18 1713 Amoxicillin/Potassium Clav 1 Each Tablet, 1 EACH PO BID Prescribed by: CHIQUITA ZAPATA on 06/19/17 1251 Bisacodyl 5 Mg Tablet., 5 MG PO BID Prescribed by: CHIQUITA ZAPATA on 12/10/14 1646 Bupropion Hcl 150 Mg Tablet, 1 TAB PO DAILY, (Reported) Dexlansoprazole 60 Mg mp, 60 MG PO DAILY, (Reported) Estradiol 1 Mg Tablet, 0.5 MG PO DAILY, (Reported) Gabapentin 300 Mg Cap, 900 MG PO HS, (Reported) take 3 (300 mg) capsules at bedtime Gabapentin 300 Mg Capsule, 1 EACH PO TID, (Reported) Levothyroxine Sodium 75 Mcg Tablet, 75 MCG PO DAILY, (Reported) Meloxicam 15 Mg Tablet, 15 MG PO BID, (Reported) Paliperidone 3 Mg Tab.osm.24, 3 MG PO MONTHLY, (Reported) Polyethylene Glycol 17 Gm Pack, 17 GM PO DAILY Prescribed by: CATHERINE ROSS on 10/06/14 0131 Prednisone 20 Mg Tab, 40 MG PO DAILY Prescribed by: CHIQUITA ZAPATA on 06/19/17 1251 Prednisone 20 Mg Tab, 40 MG PO DAILY Prescribed by: GRACIELA HO on 04/21/18 1700 Quetiapine Fumarate 400 Mg Tablet, 400 MG PO HS, (Reported) Sucralfate 1 G Tablet, 1 G PO QID, (Reported) Patient Home Medication List Home Medication List Reviewed: Yes Review of Systems Review of Systems Constitutional: no symptoms reported EENTM: see HPI Respiratory: no symptoms reported Cardiovascular: no symptoms reported Gastrointestinal: no symptoms reported Genitourinary: no symptoms reported Musculoskeletal: no symptoms reported Skin: no symptoms reported Psychiatric/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: No Symptoms Reported Hematologic/Lymphatic: No Symptoms Reported Immunological/Allergic: no symptoms reported Past Wcqyfly-Xtfkkj-Mdvebm Hx Patient Social History Type Used: Cigarettes 2nd Hand Smoke Exposure: Yes Recent Foreign Travel: No Contact w/Someone Who Travel: No Recent Hopitalizations: No Immunizations Up To Date Tetanus Booster (TDap): More than 5yrs Date of Pneumonia Vaccine: May 05, 2013 Date of Influenza Vaccine: Feb 02, 2014 Seasonal Allergies Seasonal Allergies: No Past Medical History Surgeries: Yes Hysterectomy, Tubal Ligation Respiratory: No COPD Cardiac: No Hypertension 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: No 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 (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) 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 Sexually Transmitted Disease: No HIV/AIDS: No Genitourinary: No Gastrointestinal: No Gastroesophageal Reflux, Chronic Constipation Musculoskeletal: No Fibromyalgia Endocrine: No Hypothyroidsim HEENT: No Cataract Cancer: No Psychosocial: Yes Schizophrenia, Depression Integumentary: No Blood Disorders: No Adverse Reaction/Blood Tranf: No Family Medical History CANCER G8 SISTER (DOESN'T KNOW WHAT TYPE OF CANCER) Diabetes mellitus 19 MOTHER STROKE G8 BROTHER No Pertinent Family Hx Physical Exam Vital Signs Vital Signs - First Documented 12/08/19 21:55 Temp 36.9 Pulse 69 Resp 17 B/P (MAP) 126/99 (108) Pulse Ox 97 O2 Delivery Room Air Capillary Refill : Height, Weight, BMI Height: 5'4.00" Weight: 175lbs. 0oz. 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 Norm as Tested; No Aphasia, No Depressed Affect, No Facial Droop, No Motor Weakness, No Sensory Deficit Skin: Normal Color, Warm/Dry Progress/Results/Core Measures Suspected Sepsis SIRS Temperature: Pulse: Respiratory Rate: Laboratory Tests 12/08/19 21:52: White Blood Count 8.5 Blood Pressure / Mean: Laboratory Tests 12/08/19 21:52: Creatinine 0.91, Platelet Count 183, Total Bilirubin 0.4 Results/Orders Lab Results Laboratory Tests Test 12/08/19 21:52 Range/Units White Blood Count 8.5 4.3-11.0 10^3/uL Red Blood Count 4.33 L 4.35-5.85 10^6/uL Hemoglobin 14.4 11.5-16.0 G/DL Hematocrit 43 35-52 % Mean Corpuscular Volume 98 80-99 FL Mean Corpuscular Hemoglobin 33 25-34 PG Mean Corpuscular Hemoglobin Concent 34 32-36 G/DL Red Cell Distribution Width 13.9 10.0-14.5 % Platelet Count 183 130-400 10^3/uL Mean Platelet Volume 10.8 H 7.4-10.4 FL Neutrophils (%) (Auto) 77 H 42-75 % Lymphocytes (%) (Auto) 17 12-44 % Monocytes (%) (Auto) 5 0-12 % Eosinophils (%) (Auto) 1 0-10 % Basophils (%) (Auto) 0 0-10 % Neutrophils # (Auto) 6.5 1.8-7.8 X 10^3 Lymphocytes # (Auto) 1.5 1.0-4.0 X 10^3 Monocytes # (Auto) 0.4 0.0-1.0 X 10^3 Eosinophils # (Auto) 0.1 0.0-0.3 10^3/uL Basophils # (Auto) 0.0 0.0-0.1 10^3/uL Neutrophils % (Manual) 77 % Lymphocytes % (Manual) 15 % Monocytes % (Manual) 5 % Eosinophils % (Manual) 3 % Band Neutrophils 0 % Blood Morphology Comment NORMAL Erythrocyte Sedimentation Rate 11 0-30 MM/HR Sodium Level 140 135-145 MMOL/L Potassium Level 4.1 3.6-5.0 MMOL/L Chloride Level 105 98-107 MMOL/L Carbon Dioxide Level 22 21-32 MMOL/L Anion Gap 13 5-14 MMOL/L Blood Urea Nitrogen 8 7-18 MG/DL Creatinine 0.91 0.60-1.30 MG/DL Estimat Glomerular Filtration Rate > 60 BUN/Creatinine Ratio 9 Glucose Level 99 70-105 MG/DL Calcium Level 9.2 8.5-10.1 MG/DL Corrected Calcium 9.1 8.5-10.1 MG/DL Total Bilirubin 0.4 0.1-1.0 MG/DL Aspartate Amino Transf (AST/SGOT) 24 5-34 U/L Alanine Aminotransferase (ALT/SGPT) 25 0-55 U/L Alkaline Phosphatase 68 40-136 U/L Total Protein 6.9 6.4-8.2 GM/DL Albumin 4.1 3.2-4.5 GM/DL Group A Streptococcus Screen NEGATIVE NEGATIVE My Orders Orders - JUAN SANCHEZ APRN Ct Head Wo (12/08/19 21:31) Cbc And Manual Diff (12/08/19 21:31) Comprehensive Metabolic Panel (12/08/19 21:31) Rapid Strep A Screen (12/08/19 21:31) Erythrocyte Sedimentation Rate (12/08/19 21:31) Ketorolac Injection (Toradol Injection) (12/08/19 22:00) Medications Given in ED Current Medications Medications Dose Ordered Sig/Patricia Route Start Time Stop Time Status Last Admin Dose Admin Ketorolac Tromethamine 15 mg ONCE ONCE IVP 12/08/19 22:00 12/08/19 22:02 DC 12/08/19 22:35 15 MG Vital Signs/I&O 12/08/19 21:55 Temp 36.9 Pulse 69 Resp 17 B/P (MAP) 126/99 (108) Pulse Ox 97 O2 Delivery Room Air Capillary Refill : Departure Impression Primary Impression: Blurred vision, left eye Disposition: 01 HOME, SELF-CARE Condition: Stable Departure-Patient Inst. Referrals: JOHN FRANK DO (PCP/Family) Primary Care Physician Add. Discharge Instructions: Plan: 1. May take Tylenol or Ibuprofen as needed for headache per package instruction. 2. Follow up with insole lip turner of your choice. You can call Dr. Balderrama office in [place] [phone] for new patient visit. 3. Return for any new or concerning symptoms. All discharge instructions reviewed with patient and/or family. Voiced understanding. JUAN SANCHEZ [employer] SERVICE SECTIONAL CENTER MANAGER Dec 08, 2019 21:41
[2019-12-08 22:00] LABS: BASOPHILS % (AUTO) 0 % (0-10); EOSINOPHILS # (AUTO) 0.1 10^3/uL (0.0-0.3); EOSINOPHILS % (AUTO) 1 % (0-10); HEMATOCRIT 43 % (35-52); HEMOGLOBIN 14.4 G/DL (11.5-16.0); LYMPHOCYTES # (AUTO) 1.5 X 10^3 (1.0-4.0); LYMPHOCYTES % (AUTO) 17 % (12-44); MEAN CORPUSCULAR HEMOGLOBIN 33 PG (25-34); MEAN CORPUSCULAR HGB CONC 34 G/DL (32-36); MEAN CORPUSCULAR VOLUME 98 FL (80-99); MEAN PLATELET VOLUME 10.8 FL (7.4-10.4); MONOCYTES # (AUTO) 0.4 X 10^3 (0.0-1.0); MONOCYTES % (AUTO) 5 % (0-12); NEUTROPHILS # (AUTO) 6.5 X 10^3 (1.8-7.8); NEUTROPHILS % (AUTO) 77 % (42-75); PLATELET COUNT 183 10^3/uL (130-400); RED CELL DISTRIBUTION WIDTH 13.9 % (10.0-14.5); WHITE BLOOD COUNT 8.5 10^3/uL (4.3-11.0)
[2019-12-08] MEDS ORDERED: KETOROLAC 30 MG/ML VIAL IVP ONE (22:00)
[2019-12-08 22:08] LABS: ALBUMIN 4.1 GM/DL (3.2-4.5); CHLORIDE 105 MMOL/L (98-107); POTASSIUM 4.1 MMOL/L (3.6-5.0); SODIUM 140 MMOL/L (135-145)
[2019-12-08 22:09] LABS: CALCIUM 9.2 MG/DL (8.5-10.1)
[2019-12-08 22:11] LABS: GLUCOSE 99 MG/DL (70-105); TOTAL PROTEIN 6.9 GM/DL (6.4-8.2)
[2019-12-08 22:12] LABS: BILIRUBIN,TOTAL 0.4 MG/DL (0.1-1.0); CARBON DIOXIDE 22 MMOL/L (21-32)
[2019-12-08 22:14] LABS: ALKALINE PHOSPHATASE 68 U/L (40-136); CREATININE SERUM 0.91 MG/DL (0.60-1.30); GFR ESTIMATED > 60
[2019-12-08 22:15] LABS: BUN/CREATININE RATIO 9
[2019-12-08 22:17] LABS: ALANINE AMINOTRANSFERASE 25 U/L (0-55)
[2019-12-08 22:23] LABS: ERYTHROCYTE SEDIMENTATION RATE 11 MM/HR (0-30); RBC MORPH NORMAL
[2019-12-08 22:24] LABS: BAND NEUTROPHILS 0 %; EOSINOPHILS % (MANUAL) 3 %; LYMPHOCYTES % (MANUAL) 15 %; MONOCYTES % (MANUAL) 5 %; NEUTROPHILS % (MANUAL) 77 %
[2019-12-08 22:51] VITALS: BP 126/99
--- NOTE | 2019-12-09 07:06 | Diagnostic Imaging Report ---
PROCEDURE: CT head without contrast. TECHNIQUE: Multiple contiguous axial images were obtained through the brain without the use of intravenous contrast. Auto Exposure Controls were utilized during the CT exam to meet ALARA standards for radiation dose reduction. INDICATION: Left eye blurred vision, left-sided pain. CORRELATION: None FINDINGS: There is no midline shift or mass effect. The ventricles and sulci are unremarkable. No evidence for acute intracranial hemorrhage, abnormal extra-axial fluid collections or cerebral edema is present. The basilar cisterns are unremarkable. The bony calvarium is intact. The visualized paranasal sinuses and mastoid air cells are clear. IMPRESSION: Negative appearing noncontrast CT of the head. A preliminary report was provided by [facility]. Dictated by: Dictated on workstation # [id number]
== END 2019-12-08 22:51 | disposition home or self-care (01) ==
LOC: EDUNIT# 21:10 → ER 21:12
DX: H53.8 Other visual disturbances (principal); J44.9 Chronic obstructive pulmonary disease, unspecified; I10 Essential (primary) hypertension; K21.9 Gastro-esophageal reflux disease without esophagitis; K59.09 Other constipation; E03.9 Hypothyroidism, unspecified; F20.9 Schizophrenia, unspecified; F32.9 Major depressive disorder, single episode, unspecified; M79.7 Fibromyalgia; Z88.1 Allergy status to other antibiotic agents; Z79.890 Hormone replacement therapy; Z88.8 Allergy status to other drugs, medicaments and biological substances; Z79.52 Long term (current) use of systemic steroids; Z77.22 Contact with and (suspected) exposure to environmental tobacco smoke (acute) (chronic)
CPT/HCPCS: 36415; 70450; 80053; 85007; 85027; 85652; 87430

== ENCOUNTER → 2019-12-12 | Outpatient (CLI) | payer MEDICARE ==
--- NOTE | 2019-12-12 13:02 | Diagnostic Imaging Report ---
PROCEDURE: US carotid duplex, bilateral. TECHNIQUE: Multiple real-time grayscale images were obtained over the carotid arteries in various projections, bilaterally. Additional spectral analysis and color Doppler duplex images were also obtained. INDICATION: Carotid bruit. FINDINGS: Zirc-ib-pjophyhx plaque is identified in both carotid systems. There is plaquing of distal common carotid arteries and carotid bulbs extending into the proximal internal carotid arteries. Mild velocity elevation in the distal internal carotid arteries bilaterally is noted, reaching 143 cm/s on the right and 147 cm/s on the left. ICA/CCA ratio on the right is 2.0 and on the left 1.6. Both vertebral arteries demonstrate antegrade flow. IMPRESSION: Uswm-gr-htfhdspb bilateral carotid plaques. No high-grade stenosis is seen. Velocity measurements within both internal carotid arteries are consistent with approximately 50% diameter stenosis. Parameters based on the consensus panel Fowler-Scale and Doppler ultrasound criteria published March 2003, Radiology, Volume 229. DOPPLER (peak systolic velocity M/S Right Left CCA 0.70 0.90 ICA Proximal 0.46 0.71 ICA Mid 0.67 0.73 ICA Distal 1.43 1.47 RATIO 2.04 1.63 ECA 1.14 1.96 VERT 0.42 0.87 Dictated by: Dictated on workstation # [id number]
== END ==
LOC: RAD 10:22
PROVIDERS: ATTEND Internal Medicine
DX: I65.23 Occlusion and stenosis of bilateral carotid arteries (principal); D35.2 Benign neoplasm of pituitary gland; R09.89 Other specified symptoms and signs involving the circulatory and respiratory systems
CPT/HCPCS: 93880

== ENCOUNTER → 2019-12-16 | Outpatient (CLI) | payer MEDICARE ==
--- NOTE | 2019-12-16 09:40 | Diagnostic Imaging Report ---
PROCEDURE: MR angiography of the brain without the use of contrast. TECHNIQUE: 3D lioc-mg-wsvivs non contrast enhanced MR angiography of the head was performed. A source data was reformatted into rotating MIP projections. INDICATION: Worsening head pain, visual changes. Study correlated with head CT 12/08/2019 and with routine brain MRI 10/27/2016. FINDINGS: The right BROKER IN CHARGE is off the internal carotid as a variant. The bilateral BROKER IN CHARGE segments have abnormal signal and are patent. Intradural vertebrals and basilar nonfocal. The intracranial ICAs patent and unremarkable. The A1 segments, the ACOM, the paired anterior cerebral arteries unremarkable the bilateral middle cerebral arteries unremarkable. No large vessel occlusion, focal stenosis, aneurysm or vascular malformation found. IMPRESSION: Unremarkable MRA head. Dictated by: Dictated on workstation # [id number]
== END ==
LOC: RAD 08:06
PROVIDERS: ATTEND Internal Medicine
DX: D35.2 Benign neoplasm of pituitary gland (principal); H53.8 Other visual disturbances; R09.89 Other specified symptoms and signs involving the circulatory and respiratory systems; R05 Cough; R51 Headache
CPT/HCPCS: 70544

== ENCOUNTER 2020-11-08 19:40 | Emergency (ER) | payer MEDICARE ==
[~2020-11-08] VITALS: Ht 170 cm; Wt 81.0 kg
[2020-11-08] MEDS ORDERED: LACTATED RINGERS 1,000 ML IV SCH (20:00)
[2020-11-08] MEDS ORDERED: ONDANSETRON 4 MG/2 ML (SDV) Z0FRAN IVP ONE (20:00)
--- NOTE | 2020-11-08 20:01 | ED General ---
General Chief Complaint: General Problems/Pain Stated Complaint: WEAKNESS/FEVER/UTI Nursing Triage Note: Patient presents to ER via EMS due to not being able to keep medication down. 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 Source of Information: Patient Exam Limitations: No Limitations History of Present Illness Date Seen by Provider: Nov 08, 2020 Time Seen by Provider: 19:59 Initial Comments To ER by EMS from home with reports of nausea vomiting. She was seen at [facility] yesterday and diagnosed with a urinary tract infection. She was recommended admission but declined. They sent her home with some antibiotics but she reports that she was unable to take the antibiotics or schizophrenia medication that she takes regularly today because of nausea. She was however able to take her hydrocodone. She had a negative Covid swab at [facility] yesterday. Timing/Duration: 1-2 Days Severity: Moderate Allergies and Home Medications Allergies Coded Allergies: cephalexin (Unverified Allergy, Unknown, 12/03/14) povidone-iodine (Unverified Allergy, Unknown, 07/15/10) soap (Unverified Allergy, Unknown, 07/15/10) Home Medications Acetaminophen With Codeine 1 Each Tablet, 1 TAB PO QID PRN for COUGH, (Reported) Albuterol Sulfate 2.5 Mg/3 Ml Vial.neb, 2.5 MG INH Q4H PRN for WHEEZING Prescribed by: GRACIELA HO on 04/21/18 1713 Amoxicillin/Potassium Clav 1 Each Tablet, 1 EACH PO BID Prescribed by: CHIQUITA ZAPATA on 06/19/17 1251 Bisacodyl 5 Mg Tablet.dr, 5 MG PO BID Prescribed by: CHIQUITA ZAPATA on 12/10/14 1646 Bupropion Hcl 150 Mg Tablet, 1 TAB PO DAILY, (Reported) Dexlansoprazole 60 Mg Cap.mp, 60 MG PO DAILY, (Reported) Estradiol 1 Mg Tablet, 0.5 MG PO DAILY, (Reported) Gabapentin 300 Mg Cap, 900 MG PO HS, (Reported) take 3 (300 mg) capsules at bedtime Gabapentin 300 Mg Capsule, 1 EACH PO TID, (Reported) Levothyroxine Sodium 75 Mcg Tablet, 75 MCG PO DAILY, (Reported) Meloxicam 15 Mg Tablet, 15 MG PO BID, (Reported) Paliperidone 3 Mg Tab.osm.24, 3 MG PO MONTHLY, (Reported) Polyethylene Glycol 17 Gm Pack, 17 GM PO DAILY Prescribed by: CATHERINE ROSS on 10/06/14 0131 Prednisone 20 Mg Tab, 40 MG PO DAILY Prescribed by: CHIQUITA ZAPATA on 06/19/17 1251 Prednisone 20 Mg Tab, 40 MG PO DAILY Prescribed by: GRACIELA HO on 04/21/18 1700 Quetiapine Fumarate 400 Mg Tablet, 400 MG PO HS, (Reported) Sucralfate 1 G Tablet, 1 G PO QID, (Reported) Patient Home Medication List Home Medication List Reviewed: Yes Review of Systems Review of Systems Constitutional: see HPI EENTM: see HPI Respiratory: no symptoms reported Cardiovascular: no symptoms reported Genitourinary: no symptoms reported Musculoskeletal: no symptoms reported Skin: no symptoms reported Psychiatric/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: No Symptoms Reported Hematologic/Lymphatic: No Symptoms Reported Past Vyrchem-Sggrft-Ancrcu Hx Patient Social History Tobacco Use?: No Pt feels they are or have been: No Immunizations Up To Date Tetanus Booster (TDap): More than 5yrs Seasonal Allergies Seasonal Allergies: No Past Medical History Surgeries: Yes Hysterectomy, Tubal Ligation Respiratory: No COPD Cardiac: No Hypertension 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: No 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 (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) 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 Sexually Transmitted Disease: No HIV/AIDS: No Genitourinary: No Gastrointestinal: No Gastroesophageal Reflux, Chronic Constipation Musculoskeletal: No Fibromyalgia Endocrine: No Hypothyroidsim HEENT: No Cataract Cancer: No Psychosocial: Yes Schizophrenia, Depression Integumentary: No Blood Disorders: No Adverse Reaction/Blood Tranf: No Family Medical History CANCER G8 SISTER (DOESN'T KNOW WHAT TYPE OF CANCER) Diabetes mellitus 19 MOTHER STROKE G8 BROTHER No Pertinent Family Hx Physical Exam Vital Signs Vital Signs - First Documented 11/08/20 11/08/20 11/08/20 19:45 19:53 21:20 Temp 35.7 Pulse 69 Resp 12 B/P (MAP) 140/70 Pulse Ox 97 O2 Delivery Room Air Capillary Refill : Less Than 3 Seconds Height, Weight, BMI Height: 5'4.00" Weight: 175lbs. 0oz. 79.365593rz; 28.00 BMI Method:Stated General Appearance: No Apparent Distress, WD/WN, Thin, Other (Has some dystonic movements about the mouth) Neck: Full Range of Motion, Normal Inspection Respiratory: Chest Non Tender, Lungs Clear, Normal Breath Sounds, No Accessory Muscle Use, No Respiratory Distress Cardiovascular: Regular Rate, Rhythm, Normal Peripheral Pulses Gastrointestinal: Normal Bowel Sounds, Non Tender, Soft Extremity: Normal Capillary Refill, Normal Inspection Neurologic/Psychiatric: Alert, Other (aware she is at hospital) Skin: Normal Color, Warm/Dry Comments She moves all extremities. She is able to get herself out of bed and walk to the bathroom. She states she has not eaten in a couple of days because she just has not felt like it but states that it is not because she is nauseated Focused Exam Lactate Level 11/08/20 19:45: Lactic Acid Level 1.19 Lactic Acid Level Laboratory Tests Test 11/08/20 19:45 Lactic Acid Level 1.19 MMOL/L (0.50-2.00) Progress/Results/Core Measures Suspected Sepsis SIRS Temperature: Pulse: 69 Respiratory Rate: 12 Laboratory Tests 11/08/20 19:45: White Blood Count 7.5 Blood Pressure / Mean: 11/08/20 19:45: Lactic Acid Level 1.19 Laboratory Tests 11/08/20 19:45: Creatinine 0.84, Platelet Count 204, Total Bilirubin 0.7 11/08/20 20:07: INR Comment 1.0 Results/Orders Lab Results Laboratory Tests Test 11/08/20 19:45 11/08/20 20:07 11/08/20 20:37 Range/Units White Blood Count 7.5 4.3-11.0 10^3/uL Red Blood Count 4.91 3.80-5.11 10^6/uL Hemoglobin 15.7 11.5-16.0 g/dL Hematocrit 46 35-52 % Mean Corpuscular Volume 93 80-99 fL Mean Corpuscular Hemoglobin 32 25-34 pg Mean Corpuscular Hemoglobin Concent 34 32-36 g/dL Red Cell Distribution Width 12.5 10.0-14.5 % Platelet Count 204 130-400 10^3/uL Mean Platelet Volume 11.1 9.0-12.2 fL Immature Granulocyte % (Auto) 1 % Neutrophils (%) (Auto) 65 42-75 % Lymphocytes (%) (Auto) 29 12-44 % Monocytes (%) (Auto) 4 0-12 % Eosinophils (%) (Auto) 1 0-10 % Basophils (%) (Auto) 0 0-10 % Neutrophils # (Auto) 4.9 1.8-7.8 10^3/uL Lymphocytes # (Auto) 2.2 1.0-4.0 10^3/uL Monocytes # (Auto) 0.3 0.0-1.0 10^3/uL Eosinophils # (Auto) 0.1 0.0-0.3 10^3/uL Basophils # (Auto) 0.0 0.0-0.1 10^3/uL Immature Granulocyte # (Auto) 0.0 0.0-0.1 10^3/uL Sodium Level 137 135-145 MMOL/L Potassium Level 3.7 3.6-5.0 MMOL/L Chloride Level 100 98-107 MMOL/L Carbon Dioxide Level 23 21-32 MMOL/L Anion Gap 14 5-14 MMOL/L Blood Urea Nitrogen 18 7-18 MG/DL Creatinine 0.84 0.60-1.30 MG/DL Estimat Glomerular Filtration Rate > 60 BUN/Creatinine Ratio 21 Glucose Level 82 70-105 MG/DL Lactic Acid Level 1.19 0.50-2.00 MMOL/L Calcium Level 9.4 8.5-10.1 MG/DL Corrected Calcium 9.3 8.5-10.1 MG/DL Total Bilirubin 0.7 0.1-1.0 MG/DL Aspartate Amino Transf (AST/SGOT) 23 5-34 U/L Alanine Aminotransferase (ALT/SGPT) 16 0-55 U/L Alkaline Phosphatase 64 40-136 U/L Total Protein 6.7 6.4-8.2 GM/DL Albumin 4.1 3.2-4.5 GM/DL Serum Alcohol < 10 <10 MG/DL Prothrombin Time 13.2 12.2-14.7 SEC INR Comment 1.0 0.8-1.4 Activated Partial Thromboplast Time 31 24-35 SEC SARS-CoV-2 RNA (RT-PCR) Not Detected Not Detecte Urine Color YELLOW Urine Clarity SL CLOUDY Urine pH 6.0 5-9 Urine Specific [place] >=1.030 1.016-1.022 Urine Protein NEGATIVE NEGATIVE Urine Glucose (UA) NEGATIVE NEGATIVE Urine Ketones 2+ H NEGATIVE Urine Nitrite NEGATIVE NEGATIVE Urine Bilirubin 2+ H NEGATIVE Urine Urobilinogen 0.2 < = 1.0 MG/DL Urine Leukocyte Esterase TRACE H NEGATIVE Urine RBC (Auto) NEGATIVE NEGATIVE Urine RBC NONE /HPF Urine WBC 10-25 H /HPF Urine Squamous Epithelial Cells 10-25 H /HPF Urine Crystals NONE /LPF Urine Bacteria FEW H /HPF Urine Casts NONE /LPF Urine Mucus MODERATE H /LPF Urine Culture Indicated CULTURE PENDING Urine Opiates Screen NEGATIVE NEGATIVE Urine Oxycodone Screen NEGATIVE NEGATIVE Urine Methadone Screen NEGATIVE NEGATIVE Urine Propoxyphene Screen NEGATIVE NEGATIVE Urine Barbiturates Screen NEGATIVE NEGATIVE Ur Tricyclic Antidepressants Screen NEGATIVE NEGATIVE Urine Phencyclidine Screen NEGATIVE NEGATIVE Urine Amphetamines Screen NEGATIVE NEGATIVE Urine Methamphetamines Screen NEGATIVE NEGATIVE Urine Benzodiazepines Screen NEGATIVE NEGATIVE Urine Cocaine Screen NEGATIVE NEGATIVE Urine Cannabinoids Screen NEGATIVE NEGATIVE My Orders Orders - CHIQUITA ZAPATA CPO Cbc With Automated Diff (11/08/20 19:52) Comprehensive Metabolic Panel (11/08/20:52) Blood Culture (11/08/20 19:52) Sputum Culture (11/08/20 19:52) Urinalysis (11/08/20:52) Urine Culture (11/08/20:52) Protime With Inr (11/08/20:52) Partial Thromboplastin Time (11/08/20 19:52) Chest 1 View, Ap/Pa Only (11/08/20 19:52) Ed Iv/Invasive Line Start (11/08/20 19:52) Ed Iv/Invasive Line Start (11/08/20 19:52) Vital Signs Adult Sepsis Patie Q15M (11/08/20 19:52) O2 (11/08/20 19:52) Remove Rings In Anticipation O (11/08/20:52) Lactic Acid Analyzer (11/08/20:52) Lactated Ringers (Lr 1000 Ml Iv Solution (11/08/20 20:00) Ondansetron Injection (Zofran Injectio (11/08/20 20:00) Drug Screen Stat (Urine) (11/08/20 19:52) Covid 19 Inhouse Test (11/08/20 20:07) Alcohol (11/08/20 20:37) Olanzapine Orally Dissolve Tab (Zyprexa (11/08/20 20:45) Sulfamethoxazole/Trimet Ds Tab (Bactrim (11/08/20 21:00) Medications Given in ED Current Medications Medications Dose Ordered Sig/Patricia Route Start Time Stop Time Status Last Admin Dose Admin Olanzapine 5 mg ONCE ONCE PO 11/08/20 20:45 11/08/20 20:46 DC 11/08/20 20:56 5 MG Ondansetron HCl 4 mg ONCE ONCE IVP 11/08/20 20:00 11/08/20 20:01 DC 11/08/20 20:14 4 MG Trimethoprim/ Sulfamethoxazole 1 ea ONCE ONCE PO 11/08/20 21:00 11/08/20 21:01 DC 11/08/20 21:16 1 EA Vital Signs/I&O 11/08/20 11/08/20 11/08/20 19:45 19:53 21:20 Temp 35.7 36.0 Pulse 69 76 Resp 12 18 B/P (MAP) 140/70 Pulse Ox 97 95 96 O2 Delivery Room Air Room Air Capillary Refill : Less Than 3 Seconds Diagnostic Imaging Diagonstic Imaging: CT Comments NAME: RONALD MCCARTHY MED REC#: [id number] PT STATUS: REG ER : 1955 PHYSICIAN: CHIQUITA ZAPATA APRN ADMIT DATE: 11/08/20/ER Draft Date of Exam:11/08/20 CHEST 1 VIEW, AP/PA ONLY Clinical indication: Patient with sepsis. Exam: Portable chest x-ray upright view. Comparisons: Chest x-ray dated 10/10/2014. Findings: Lungs/pleura: There are minimal patchy opacities in both lung bases which may represent atelectasis versus infiltrates. There is no pneumothorax. There is no pleural effusion. Mediastinum: Unremarkable. Pulmonary vasculature: Unremarkable. Heart: Unremarkable. Bones/extrathoracic soft tissue: There are degenerative spurs involving the thoracic spine. Impression: There are minimal patchy airspace opacities involving both lung bases which may represent some atelectasis versus infiltrates. Dictated on workstation # [id number] Dict: 11/08/202044 Trans: 11/08/202054 [facility] [id number] Interpreted by: RAFA VARNER MD Electronically signed by: Departure Communication (Admissions) received 1 l IVF here. Will dc to home with taxi. given bactrim ds here, give zyprexa here both orally without nausea or vomiting. Impression Primary Impression: Urinary tract infection Disposition: HOME, SELF-CARE Condition: Stable Departure-Patient Inst. Decision time for Depature: 21:04 Referrals: JOHN FRANK DO (PCP/Family) Primary Care Physician Patient Instructions: Urinary Tract Infection, Adult (DC) Add. Discharge Instructions: 1. Return to ER for any concerns. Follow-up with your doctor next week for recheck. It is important to take your medications including the medications for your schizophrenia. Take the antibiotics prescribed to you last night at [facility]. All discharge instructions reviewed with patient and/or family. Voiced un derstanding. CHIQUITA ZAPATA CPO Nov 08, 2020 20:01
[2020-11-08 20:03] LABS: BASOPHILS % (AUTO) 0 % (0-10); EOSINOPHILS # (AUTO) 0.1 10^3/uL (0.0-0.3); EOSINOPHILS % (AUTO) 1 % (0-10); HEMATOCRIT 46 % (35-52); HEMOGLOBIN 15.7 g/dL (11.5-16.0); LYMPHOCYTES # (AUTO) 2.2 10^3/uL (1.0-4.0); LYMPHOCYTES % (AUTO) 29 % (12-44); MEAN CORPUSCULAR HEMOGLOBIN 32 pg (25-34); MEAN CORPUSCULAR HGB CONC 34 g/dL (32-36); MEAN CORPUSCULAR VOLUME 93 fL (80-99); MEAN PLATELET VOLUME 11.1 fL (9.0-12.2); MONOCYTES # (AUTO) 0.3 10^3/uL (0.0-1.0); MONOCYTES % (AUTO) 4 % (0-12); NEUTROPHILS # (AUTO) 4.9 10^3/uL (1.8-7.8); NEUTROPHILS % (AUTO) 65 % (42-75); PLATELET COUNT 204 10^3/uL (130-400); WHITE BLOOD COUNT 7.5 10^3/uL (4.3-11.0)
[2020-11-08 20:23] LABS: ALANINE AMINOTRANSFERASE 16 U/L (0-55); ALBUMIN 4.1 GM/DL (3.2-4.5); ALKALINE PHOSPHATASE 64 U/L (40-136); BILIRUBIN,TOTAL 0.7 MG/DL (0.1-1.0); BUN/CREATININE RATIO 21; CALCIUM 9.4 MG/DL (8.5-10.1); CARBON DIOXIDE 23 MMOL/L (21-32); CHLORIDE 100 MMOL/L (98-107); CREATININE SERUM 0.84 MG/DL (0.60-1.30); GFR ESTIMATED > 60; GLUCOSE 82 MG/DL (70-105); POTASSIUM 3.7 MMOL/L (3.6-5.0); SODIUM 137 MMOL/L (135-145); TOTAL PROTEIN 6.7 GM/DL (6.4-8.2)
[2020-11-08 20:31] LABS: PROTHROMBIN TIME PATIENT 13.2 SEC (12.2-14.7)
[2020-11-08] MEDS ORDERED: OLANZapine 5 MG ODT (ZyPREXA ZYDIS) PO ONE (20:45)
[2020-11-08 20:49] LABS: CLARITY,URINE SL CLOUDY; COLOR,URINE YELLOW; GLUCOSE, URINE (UA) NEGATIVE (NEGATIVE); KETONES,URINE 2+ (NEGATIVE); LEUKOCYTE ESTERASE ,URINE TRACE (NEGATIVE); NITRITE,URINE NEGATIVE (NEGATIVE); PROTEIN,URINE NEGATIVE (NEGATIVE)
[2020-11-08 20:54] LABS: BILIRUBIN,URINE 2+ (NEGATIVE)
[2020-11-08 20:55] LABS: BACTERIA,URINE FEW /HPF
--- NOTE | 2020-11-08 20:56 | Diagnostic Imaging Report ---
Clinical indication: Patient with sepsis. Exam: Portable chest x-ray upright view. Comparisons: Chest x-ray dated 10/10/2014. Findings: Lungs/pleura: There are minimal patchy opacities in both lung bases which may represent atelectasis versus infiltrates. There is no pneumothorax. There is no pleural effusion. Mediastinum: Unremarkable. Pulmonary vasculature: Unremarkable. Heart: Unremarkable. Bones/extrathoracic soft tissue: There are degenerative spurs involving the thoracic spine. Impression: There are minimal patchy airspace opacities involving both lung bases which may represent some atelectasis versus infiltrates. Dictated by: Dictated on workstation # [id number]
[2020-11-08 20:57] LABS: AMPHETAMINE SCREEN, URINE NEGATIVE (NEGATIVE); BARBITURATE SCREEN URINE NEGATIVE (NEGATIVE); BENZODIAZEPINES SCREEN URINE NEGATIVE (NEGATIVE); CANNABINOID SCREEN, URINE NEGATIVE (NEGATIVE); COCAINE SCREEN URINE NEGATIVE (NEGATIVE); METHADONE STAT NEGATIVE (NEGATIVE); METHAMPHETAMINE SCREEN URINE S NEGATIVE (NEGATIVE); OPIATE SCREEN URINE NEGATIVE (NEGATIVE); OXYCODONE STAT NEGATIVE (NEGATIVE); PROPOXYPHENE STAT NEGATIVE (NEGATIVE); TRICYCLIC ANTIDEPRESSANTS SCRE NEGATIVE (NEGATIVE)
[2020-11-08] MEDS ORDERED: TRIM/SULFAMETH 160/800 (SEPTRA DS) TAB PO ONE (21:00)
[2020-11-08 21:20] VITALS: BP 140/70
== END 2020-11-08 21:19 | disposition home or self-care (01) ==
LOC: EDUNIT# 19:40 → ER 19:46
DX: N39.0 Urinary tract infection, site not specified (principal); J44.9 Chronic obstructive pulmonary disease, unspecified; I10 Essential (primary) hypertension; E03.9 Hypothyroidism, unspecified; K21.9 Gastro-esophageal reflux disease without esophagitis; F20.9 Schizophrenia, unspecified; F32.9 Major depressive disorder, single episode, unspecified; Z20.822 Contact with and (suspected) exposure to COVID-19; Z79.52 Long term (current) use of systemic steroids; Z79.890 Hormone replacement therapy; Z79.899 Other long term (current) drug therapy
CPT/HCPCS: 71045; 80053; 80306; 81000; 83605; 85025; 85610; 85730; 87040; 87077; 87088; 87636; 99284; G0480; 36415; 80320; 87186

== ENCOUNTER 2020-12-15 14:09 | Emergency (ER) | payer MEDICARE ==
[~2020-12-15] VITALS: Ht 162 cm; Wt 63.0 kg
[2020-12-15 14:15] VITALS: BP 121/74
[2020-12-15] MEDS ORDERED: TETANUS,DIPTH,PERTUSS P/F (BOOSTRIX) 0.5 ML VIAL IM ONE ×2 (14:29→14:30)
--- NOTE | 2020-12-15 14:30 | ED General ---
General Chief Complaint: Laceration Stated Complaint: HEAD LAC Nursing Triage Note: PT ABM TO ROOM FT1 PT CO OF LAC TO TOP OF HEAD FROM PIECE OF DOOR FALLING OFF AND HITTING ON HEAD, NOT A LARGE PIECE STATE STAFF. PT HAS HAD NO LOC. PT BROUGHT TO ED BY [place] STAFF History of Present Illness Date Seen by Provider: Dec 15, 2020 Time Seen by Provider: 14:20 Initial Comments 65-year-old female presents for a small abrasion to her right frontal scalp. She is in a locked facility for dementia patients at her halfway, she began to get aggressive and was shaking on the door when a small magnetic pi nelsy fell and hit her on the head. It was witnessed by staff, there was no loss of consciousness. Pressure was applied to the abrasion and she was brought here. There is no active bleeding at this time the patient denies headache, nausea, vision changes or seizure activity. Timing/Duration: 1/2 Hour Severity: Mild Associated Systoms: Denies Symptoms Allergies and Home Medications Allergies Coded Allergies: cephalexin (Unverified Allergy, Unknown, 12/03/14) povidone-iodine (Unverified Allergy, Unknown, 07/15/10) soap (Unverified Allergy, Unknown, 07/15/10) Home Medications Acetaminophen With Codeine 1 Each Tablet, 1 TAB PO QID PRN for COUGH, (Reported) Albuterol Sulfate 2.5 Mg/3 Ml Vial.neb, 2.5 MG INH Q4H PRN for WHEEZING Prescribed by: GRACIELA HO on 04/21/18 1713 Amoxicillin/Potassium Clav 1 Each Tablet, 1 EACH PO BID Prescribed by: CHIQUITA ZAPATA on 06/19/17 1251 Bisacodyl 5 Mg Tablet.dr, 5 MG PO BID Prescribed by: CHIQUITA ZAPATA on 12/10/14 1646 Bupropion Hcl 150 Mg Tablet, 1 TAB PO DAILY, (Reported) Dexlansoprazole 60 Mg Cap.mp, 60 MG PO DAILY, (Reported) Estradiol 1 Mg Tablet, 0.5 MG PO DAILY, (Reported) Gabapentin 300 Mg Cap, 900 MG PO HS, (Reported) take 3 (300 mg) capsules at bedtime Gabapentin 300 Mg Capsule, 1 EACH PO TID, (Reported) Levothyroxine Sodium 75 Mcg Tablet, 75 MCG PO DAILY, (Reported) Meloxicam 15 Mg Tablet, 15 MG PO BID, (Reported) Paliperidone 3 Mg Tab.osm.24, 3 MG PO MONTHLY, (Reported) Polyethylene Glycol 17 Gm Pack, 17 GM PO DAILY Prescribed by: CATHERINE ROSS on 10/06/14 0131 Prednisone 20 Mg Tab, 40 MG PO DAILY Prescribed by: CHIQUITA ZAPATA on 06/19/17 1251 Prednisone 20 Mg Tab, 40 MG PO DAILY Prescribed by: GRACIELA HO on 04/21/18 1700 Quetiapine Fumarate 400 Mg Tablet, 400 MG PO HS, (Reported) Sucralfate 1 G Tablet, 1 G PO QID, (Reported) Patient Home Medication List Home Medication List Reviewed: Yes Review of Systems Review of Systems Constitutional: no symptoms reported, see HPI Skin: see HPI, other (Abrasion right frontal scalp) Past Ggyflab-Iiicau-Xfkmkj Hx Patient Social History Tobacco Use?: No Substance use?: No Alcohol Use?: No Pt feels they are or have been: No Immunizations Up To Date Tetanus Booster (TDap): More than 5yrs Second COVID19 Vaccination Manuel: 11/19/20 COVID19 Vaccine Beveller Operator: DiditzA Seasonal Allergies Seasonal Allergies: No Past Medical History Surgeries: Yes Hysterectomy, Tubal Ligation Respiratory: No COPD Cardiac: No Hypertension 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: No 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 (COPD) 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 Sexually Transmitted Disease: No HIV/AIDS: No Genitourinary: No Gastrointestinal: No Gastroesophageal Reflux, Chronic Constipation Musculoskeletal: No Fibromyalgia Endocrine: No Hypothyroidsim HEENT: No Cataract Cancer: No Psychosocial: Yes Schizophrenia, Depression Integumentary: No Blood Disorders: No Adverse Reaction/Blood Tranf: No Family Medical History Reviewed Nursing Family Hx CANCER G8 SISTER (DOESN'T KNOW WHAT TYPE OF CANCER) Diabetes mellitus 19 MOTHER STROKE G8 BROTHER No Pertinent Family Hx Physical Exam Vital Signs Vital Signs - First Documented 12/15/20 14:15 Temp 37.0 Pulse 104 Resp 18 B/P (MAP) 121/74 (90) Pulse Ox 98 Capillary Refill : Less Than 3 Seconds Height, Weight, BMI Height: 5'4.00" Weight: 175lbs. 0oz. [id number]; 24.00 BMI Method:Stated General Appearance: No Apparent Distress, WD/WN Eyes: Bilateral Eye Normal Inspection, Bilateral Eye PERRL, Bilateral Eye EOMI HEENT: PERRL/EOMI, TMs Normal, Normal ENT Inspection, Pharynx Normal Neck: Full Range of Motion, Normal Inspection, Non Tender, Supple Respiratory: Chest Non Tender, Lungs Clear, Normal Breath Sounds Cardiovascular: Regular Rate, Rhythm, No Edema, No Murmur, Normal Peripheral Pulses Extremity: Normal Capillary Refill, Normal Inspection, Normal Range of Motion, Non Tender, No Calf Tenderness, No Pedal Edema Neurologic/Psychiatric: Alert, Oriented x3, No Motor/Sensory Deficits, Normal Mood/Affect Skin: Normal Color, Warm/Dry, Other (1 cm superficial abrasion to right frontal scalp, no active bleeding. Wound cleaned with sterile saline and triple antibiotic ointment applied.) Progress/Results/Core Measures Suspected Sepsis SIRS Temperature: Pulse: 104 Respiratory Rate: 18 Blood Pressure 121 /74 Mean: 90 Results/Orders My Orders Orders - ZOLTAN BURCIAGA Dipht,Pertuss(Acell),Tet Adult (Boostrix (12/15/20 14:30) Dipht,Pertuss(Acell),Tet Adult (Boostrix (12/15/20 14:29) Medications Given in ED Current Medications Medications Dose Ordered Sig/Patricia Route Start Time Stop Time Status Last Admin Dose Admin Diphtheria/ Tetanus/Acell Pertussis 0.5 ml ONCE ONCE IM 12/15/20 14:30 12/15/20 14:31 DC 12/15/20 14:32 0.5 ML Vital Signs/I&O 12/15/20 14:15 Temp 37.0 Pulse 104 Resp 18 B/P (MAP) 121/74 (90) Pulse Ox 98 Capillary Refill : Less Than 3 Seconds Blood Pressure Mean: 90 Departure Impression Primary Impression: Scalp abrasion Qualified Codes: S00.01XA - Abrasion of scalp, initial encounter Disposition: HOME, SELF-CARE Condition: Improved Departure-Patient Inst. Decision time for Depature: 14:25 Referrals: JOHN FRANK DO (PCP/Family) Primary Care Physician Patient Instructions: Skin Abrasions (DC) Add. Discharge Instructions: Clean wound with peroxide and apply triple antibiotic ointment 3 times daily. May use Tylenol 650 mg for headache for pain, Every 6 hours. Activity as tolerated. Return to the emergency department for new, urgent care needs. All discharge instructions reviewed with patient and/or family. Voiced understanding. ZOLTAN BURCIAGA Dec 15, 2020 14:30
== END 2020-12-15 14:36 | disposition home or self-care (01) ==
LOC: EDUNIT# 14:09 → ER 14:11
DX: S00.01XA Abrasion of scalp, initial encounter (principal); J44.9 Chronic obstructive pulmonary disease, unspecified; I10 Essential (primary) hypertension; K21.9 Gastro-esophageal reflux disease without esophagitis; E03.9 Hypothyroidism, unspecified; F20.9 Schizophrenia, unspecified; F32.9 Major depressive disorder, single episode, unspecified; Z23 Encounter for immunization; Z79.890 Hormone replacement therapy; Z79.899 Other long term (current) drug therapy; Z79.52 Long term (current) use of systemic steroids; W22.8XXA Striking against or struck by other objects, initial encounter
CPT/HCPCS: 90715; 99284

== ENCOUNTER 2020-12-20 22:03 | Emergency (ER) | payer MEDICARE ==
[~2020-12-20] VITALS: Ht 162 cm; Wt 63.0 kg
[2020-12-20] MEDS ORDERED: ALPRAZolam 0.5 MG (XANAX) TAB PO SCH (22:15)
[2020-12-20 22:26] LABS: BASOPHILS % (AUTO) 0 % (0-10); LYMPHOCYTES # (AUTO) 1.8 10^3/uL (1.0-4.0); MEAN PLATELET VOLUME 11.2 fL (9.0-12.2)
[2020-12-20 22:28] LABS: BILIRUBIN,URINE NEGATIVE (NEGATIVE); CLARITY,URINE CLEAR; COLOR,URINE YELLOW; EOSINOPHILS # (AUTO) 0.2 10^3/uL (0.0-0.3); EOSINOPHILS % (AUTO) 3 % (0-10); GLUCOSE, URINE (UA) NEGATIVE (NEGATIVE); HEMATOCRIT 38 % (35-52); HEMOGLOBIN 12.6 g/dL (11.5-16.0); KETONES,URINE NEGATIVE (NEGATIVE); LEUKOCYTE ESTERASE ,URINE TRACE (NEGATIVE); LYMPHOCYTES % (AUTO) 28 % (12-44); MEAN CORPUSCULAR HEMOGLOBIN 34 pg (25-34); MEAN CORPUSCULAR HGB CONC 33 g/dL (32-36); MEAN CORPUSCULAR VOLUME 101 fL (80-99); MONOCYTES # (AUTO) 0.4 10^3/uL (0.0-1.0); MONOCYTES % (AUTO) 7 % (0-12); NEUTROPHILS # (AUTO) 3.8 10^3/uL (1.8-7.8); NEUTROPHILS % (AUTO) 61 % (42-75); NITRITE,URINE NEGATIVE (NEGATIVE); PLATELET COUNT 131 10^3/uL (130-400); PROTEIN,URINE NEGATIVE (NEGATIVE); WHITE BLOOD COUNT 6.2 10^3/uL (4.3-11.0)
--- NOTE | 2020-12-20 22:33 | ED Psychosocial ---
General Chief Complaint: Psych/Social Disorder Stated Complaint: AGITATION Nursing Triage Note: BROUGHT IN BY [facility] FOR DELUSIONS, DEPRESSION, PSYCHOSIS. PT SENT FROM [facility]. REPORTED PT HAS BEEN AGGRESSIVE TOWARDS STAFF. Source: patient Exam Limitations: no limitations History of Present Illness Date Seen by Provider: Dec 20, 2020 Time Seen by Provider: 22:30 Initial Comments To ER by EMS from [facility] where she has been residing for the past month or so. Called the police tonight on staff. Has been aggressive towards staff. She is on Seroquel 25 mg daily in the morning and Remeron. History of schizophrenia and bipolar disorder. Timing/Duration: constant Severity: moderate Allergies and Home Medications Allergies Coded Allergies: cephalexin (Unverified Allergy, Unknown, 12/03/14) povidone-iodine (Unverified Allergy, Unknown, 07/15/10) soap (Unverified Allergy, Unknown, 07/15/10) Home Medications Acetaminophen With Codeine 1 Each Tablet, 1 TAB PO QID PRN for COUGH, (Reported) Albuterol Sulfate 2.5 Mg/3 Ml Vial.neb, 2.5 MG INH Q4H PRN for WHEEZING Prescribed by: GRACIELA HO on 04/21/18 1713 Amoxicillin/Potassium Clav 1 Each Tablet, 1 EACH PO BID Prescribed by: CHIQUITA ZAPATA on 06/19/17 1251 Bisacodyl 5 Mg Tablet.dr, 5 MG PO BID Prescribed by: CHIQUITA ZAPATA on 12/10/14 1646 Bupropion Hcl 150 Mg Tablet, 1 TAB PO DAILY, (Reported) Dexlansoprazole 60 Mg Saulo., 60 MG PO DAILY, (Reported) Estradiol 1 Mg Tablet, 0.5 MG PO DAILY, (Reported) Gabapentin 300 Mg Cap, 900 MG PO HS, (Reported) take 3 (300 mg) capsules at bedtime Gabapentin 300 Mg Capsule, 1 EACH PO TID, (Reported) Levothyroxine Sodium 75 Mcg Tablet, 75 MCG PO DAILY, (Reported) Meloxicam 15 Mg Tablet, 15 MG PO BID, (Reported) Paliperidone 3 Mg Tab.osm.24, 3 MG PO MONTHLY, (Reported) Polyethylene Glycol 17 Gm Pack, 17 GM PO DAILY Prescribed by: CATHERINE ROSS on 10/06/14 0131 Prednisone 20 Mg Tab, 40 MG PO DAILY Prescribed by: CHIQUITA ZAPATA on 06/19/17 1251 Prednisone 20 Mg Tab, 40 MG PO DAILY Prescribed by: GRACIELA HO on 04/21/18 1700 Quetiapine Fumarate 400 Mg Tablet, 400 MG PO HS, (Reported) Sucralfate 1 G Tablet, 1 G PO QID, (Reported) Patient Home Medication List Home Medication List Reviewed: Yes Review of Systems Constitutional: see HPI EENTM: see HPI Respiratory: no symptoms reported Cardiovascular: no symptoms reported Genitourinary: no symptoms reported Musculoskeletal: no symptoms reported Skin: no symptoms reported Psychiatric/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: No Symptoms Reported Past Nmtxzee-Bjwvcn-Qmnyfd Hx Patient Social History Tobacco Use?: No Use of E-Cig and/or Vaping dev: No Substance use?: No Alcohol Use?: No Pt feels they are or have been: No Immunizations Up To Date Tetanus Booster (TDap): More than 5yrs Second COVID19 Vaccination Manuel: 11/19/20 COVID19 Vaccine Heating Technician: DashThis Seasonal Allergies Seasonal Allergies: No Past Medical History Surgery/Hospitalization HX: HYSTERECTOMY, TUBAL Surgeries: Yes Hysterectomy, Tubal Ligation Respiratory: No COPD Cardiac: No Hypertension 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: No 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 (COPD) 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 Sexually Transmitted Disease: No HIV/AIDS: No Genitourinary: No Gastrointestinal: No Gastroesophageal Reflux, Chronic Constipation Musculoskeletal: No Fibromyalgia Endocrine: No Hypothyroidsim HEENT: No Cataract Cancer: No Psychosocial: Yes Schizophrenia, Depression Integumentary: No Blood Disorders: No Adverse Reaction/Blood Tranf: No Family Medical History CANCER G8 SISTER (DOESN'T KNOW WHAT TYPE OF CANCER) Diabetes mellitus 19 MOTHER STROKE G8 BROTHER No Pertinent Family Hx Physical Exam Vital Signs - First Documented 12/20/20 22:03 Temp 36.3 Pulse 85 Resp 16 B/P (MAP) 150/77 (101) Pulse Ox 97 O2 Delivery Room Air Capillary Refill : Less Than 3 Seconds Height, Weight, BMI Height: 5'4.00" Weight: 175lbs. 0oz. 79.381823cz; 24.00 BMI Method:Stated General Appearance: WD/WN HEENT: PERRL/EOMI, normal ENT inspection Neck: non-tender, full range of motion Respiratory: normal breath sounds, no respiratory distress, no accessory muscle use Cardiovascular: regular rate, rhythm, no murmur Gastrointestinal: normal bowel sounds, non tender, soft Extremities: normal range of motion, non-tender Neurologic/Psychiatric: alert, other (States that she is worried about people at the jail who are not getting a bath, states that staff are stealing people's groceries. Very talkative about a variety of subjects, hard to keep on track. cooperative. ) Appearance/Memory: appropriate appearance, appropriate insight, neat Behavior/Eye Contact: cooperative, good eye contact Thoughts/Hallucinations: normal thought pattern, no apparent hallucination Skin: normal color, warm/dry Progress/Results/Core Measures Results/Orders Lab Results Laboratory Tests Test 12/20/20 22:22 Range/Units White Blood Count 6.2 4.3-11.0 10^3/uL Red Blood Count 3.75 L 3.80-5.11 10^6/uL Hemoglobin 12.6 11.5-16.0 g/dL Hematocrit 38 35-52 % Mean Corpuscular Volume 101 H 80-99 fL Mean Corpuscular Hemoglobin 34 25-34 pg Mean Corpuscular Hemoglobin Concent 33 32-36 g/dL Red Cell Distribution Width 13.2 10.0-14.5 % Platelet Count 131 130-400 10^3/uL Mean Platelet Volume 11.2 9.0-12.2 fL Immature Granulocyte % (Auto) 0 % Neutrophils (%) (Auto) 61 42-75 % Lymphocytes (%) (Auto) 28 12-44 % Monocytes (%) (Auto) 7 0-12 % Eosinophils (%) (Auto) 3 0-10 % Basophils (%) (Auto) 0 0-10 % Neutrophils # (Auto) 3.8 1.8-7.8 10^3/uL Lymphocytes # (Auto) 1.8 1.0-4.0 10^3/uL Monocytes # (Auto) 0.4 0.0-1.0 10^3/uL Eosinophils # (Auto) 0.2 0.0-0.3 10^3/uL Basophils # (Auto) 0.0 0.0-0.1 10^3/uL Immature Granulocyte # (Auto) 0.0 0.0-0.1 10^3/uL Percent Immature Platelet Fraction 5.1 0.0-7.6 % Urine Color YELLOW Urine Clarity CLEAR Urine pH 6.0 5-9 Urine Specific [place] 1.010 L 1.016-1.022 Urine Protein NEGATIVE NEGATIVE Urine Glucose (UA) NEGATIVE NEGATIVE Urine Ketones NEGATIVE NEGATIVE Urine Nitrite NEGATIVE NEGATIVE Urine Bilirubin NEGATIVE NEGATIVE Urine Urobilinogen 0.2 < = 1.0 MG/DL Urine Leukocyte Esterase TRACE H NEGATIVE Urine RBC (Auto) NEGATIVE NEGATIVE Urine RBC NONE /HPF Urine WBC 5-10 H /HPF Urine Squamous Epithelial Cells 25-50 H /HPF Urine Crystals PRESENT H /LPF Urine Amorphous Sediment FEW ALYSON URATES H /LPF Urine Bacteria LARGE H /HPF Urine Casts NONE /LPF Urine Mucus NEGATIVE /LPF Urine Culture Indicated YES Sodium Level 138 135-145 MMOL/L Potassium Level 3.5 L 3.6-5.0 MMOL/L Chloride Level 107 98-107 MMOL/L Carbon Dioxide Level 22 21-32 MMOL/L Anion Gap 9 5-14 MMOL/L Blood Urea Nitrogen 12 7-18 MG/DL Creatinine 0.79 0.60-1.30 MG/DL Estimat Glomerular Filtration Rate 74 BUN/Creatinine Ratio 15 Glucose Level 109 H 70-105 MG/DL Calcium Level 8.9 8.5-10.1 MG/DL My Orders Orders - CHIQUITA ZAPATA SERVICE STATION MANAGER Cbc With Automated Diff (12/20/20 22:14) Basic Metabolic Panel (12/20/20 22:14) Alprazolam Tablet (Xanax Tablet) (12/20/20 22:15) Ua Culture If Indicated (12/20/20 22:15) Urine Culture (12/20/20 22:22) Vital Signs/I&O 12/20/20 22:03 Temp 36.3 Pulse 85 Resp 16 B/P (MAP) 150/77 (101) Pulse Ox 97 O2 Delivery Room Air Blood Pressure Mean: 101 Departure Communication (Admissions) 2301-given Xanax here, more calm. She is on Seroquel [facility] in the morning and evening. I will increase this to 50 mg twice a day and then Ativan as needed agitation/anxiety 0.5 mg every 4 hours. Impression Primary Impression: Schizophrenia Disposition: 01 HOME, SELF-CARE Condition: Stable Departure-Patient Inst. Decision time for Depature: 22:33 Referrals: JOHN FRANK DO (PCP/Family) Primary Care Physician Patient Instructions: Schizophrenia Add. Discharge Instructions: All discharge instructions reviewed with patient and/or family. Voiced understanding. CHIQUITA ZAPATA SERVICE STATION MANAGER Dec 20, 2020 22:33
[2020-12-20 22:35] LABS: BACTERIA,URINE LARGE /HPF; POTASSIUM 3.5 MMOL/L (3.6-5.0)
[2020-12-20 22:36] LABS: AMORPHOUS SEDIMENT,UR FEW AMOR URATES /LPF; CALCIUM 8.9 MG/DL (8.5-10.1); SQUAMOUS EPITHELIAL CELL,UR 25-50 /HPF
[2020-12-20 22:41] LABS: CREATININE SERUM 0.79 MG/DL (0.60-1.30)
[2020-12-20 23:22] VITALS: BP 106/53
== END 2020-12-20 23:24 | disposition home or self-care (01) ==
LOC: EDUNIT# 22:03 → ER 22:04
DX: F20.9 Schizophrenia, unspecified (principal); J44.9 Chronic obstructive pulmonary disease, unspecified; I10 Essential (primary) hypertension; E03.9 Hypothyroidism, unspecified; K21.9 Gastro-esophageal reflux disease without esophagitis; F32.9 Major depressive disorder, single episode, unspecified; Z79.890 Hormone replacement therapy; Z79.899 Other long term (current) drug therapy; Z79.52 Long term (current) use of systemic steroids
CPT/HCPCS: 36415; 80048; 81000; 85025; 87088

== ENCOUNTER 2021-02-13 21:54 | Emergency (ER) | payer MEDICARE ==
[~2021-02-13] VITALS: Ht 64 cm; Wt 65.3 kg
--- NOTE | 2021-02-13 22:48 | ED General ---
General Chief Complaint: General Problems/Pain Stated Complaint: LOW O2 Nursing Triage Note: Pt arrives via EMS from halfway with c/o generalized weakness et low oxygen sat. snf informed EMS that pt's O2 sat was low 80's. On EMS arrival pt's O2 was 98% on room air, pt denies SOB or difficulty breathing. snf also reports that pt has been increasingly weak today et unable to ambulate independently which is not normal for her. Pt endorses increased weakness, also states she does not want to return to the halfway as she does not like it there. Source of Information: Patient Exam Limitations: No Limitations History of Present Illness Date Seen by Provider: Feb 13, 2021 Time Seen by Provider: 22:37 Initial Comments Patient is a 65-year-old female who presents to the emergency department today with a chief complaint of "low oxygen". Patient states that she feels a little labored in her breathing. Tells me that she has not had any cough or fevers or congestion or chills. She has no history that she knows of of COPD or emphysema although she has a long smoking history. She denies any chest pain. She states that she has not had any upper respiratory tract symptoms. No difficulty with urination, burning or frequency. No diarrhea. She does reside in a local halfway secondary to a history of depression. She tells me that her daughter took her power of collections attorney when she was at the hospital and [facility] a few months ago and sold her house out from underneath her. She states she has been quite depressed since she found her son and then her . She has been trying to get out of the halfway into her own apartment. She complains of just feeling "sad". She does not use inhalers. All other review of systems reviewed and negative except as stated. Timing/Duration: 1 Day, 2-3 Days Severity: Mild Associated Systoms: Malaise Allergies and Home Medications Allergies Coded Allergies: cephalexin (Unverified Allergy, Unknown, 12/03/14) povidone-iodine (Unverified Allergy, Unknown, 07/15/10) soap (Unverified Allergy, Unknown, 07/15/10) Patient Home Medication List Home Medication List Reviewed: Yes Acetaminophen With Codeine (Acetaminophen/Cod #3 Tablet) 1 Each Tablet, 1 TAB PO QID PRN for COUGH, (Reported) Entered as Reported by: JAME BELTRAN on 10/05/14 1719 Albuterol Sulfate (Albuterol Sulfate) 2.5 Mg/3 Ml Vial.neb, 2.5 MG INH Q4H PRN for WHEEZING Prescribed by: GRACIELA HO on 04/21/18 1713 Albuterol Sulfate (Proair Hfa) 1 Puff Puff, 2 PUFF IH Q4H PRN for wheezing Prescribed by: CHRISTOPHER HUYNH on 02/14/21 0025 Amoxicillin/Potassium Clav (Augmentin 500-125 Tablet) 1 Each Tablet, 1 EACH PO BID Prescribed by: CHIQUITA ZAPATA on 06/19/17 1251 Bisacodyl (Dulcolax) 5 Mg Tablet.dr, 5 MG PO BID Prescribed by: CHIQUITA ZAPATA on 12/10/14 1646 Bupropion Hcl (Wellbutrin Sr) 150 Mg Tablet, 1 TAB PO DAILY, (Reported) Entered as Reported by: VALENTINE VICTROIA on 12/03/14 0857 Dexlansoprazole (Dexilant) 60 Mg Cap.mp, 60 MG PO DAILY, (Reported) Entered as Reported by: MELECIO CAMPOS on 01/26/13 1354 Estradiol (Estradiol) 1 Mg Tablet, 0.5 MG PO DAILY, (Reported) Entered as Reported by: DORA AUGUSTINE on 10/06/14 1036 Gabapentin (Neurontin) 300 Mg Cap, 900 MG PO HS, (Reported) Entered as Reported by: KORY STEPHENS on 12/16/11 1006 Gabapentin (Neurontin) 300 Mg Capsule, 1 EACH PO TID, (Reported) Entered as Reported by: VALENTINE VICTORIA on 12/03/14 0857 Levothyroxine Sodium (Levothyroxine 75 Mcg Tab) 75 Mcg Tablet, 75 MCG PO DAILY, (Reported) Entered as Reported by: MELECIO CAMPOS on 01/26/13 1354 Liraglutide (Victoza 2-Jack) 0.6 Mg/0.1 Ml Pen.injctr, 0.6 MG SQ, (Reported) Entered as Reported by: KATHIE ALANIS on 12/08/16 0747 Meloxicam (Meloxicam) 15 Mg Tablet, 15 MG PO BID, (Reported) Entered as Reported by: VALENTINE VICTORIA on 12/03/14 0857 Montelukast Sodium (Singulair) 10 Mg Tablet, 10 MG PO, (Reported) Entered as Reported by: MARTHA JAVIER on 12/10/14 1516 Paliperidone (Invega) 3 Mg Tab.osm.24, 3 MG PO MONTHLY, (Reported) Entered as Reported by: MELECIO CAMPOS on 01/26/13 1354 Polyethylene Glycol (Miralax 17 Gm Packet) 17 Gm Pack, 17 GM PO DAILY Prescribed by: CATHERINE ROSS on 10/06/14 0131 Prednisone (Prednisone) 20 Mg Tab, 40 MG PO DAILY Prescribed by: CHIQUITA ZAPATA on 06/19/17 1251 Prednisone (Prednisone) 20 Mg Tab, 40 MG PO DAILY Prescribed by: GRACIELA HO on 04/21/18 1700 Prednisone (Prednisone) 50 Mg Tab, 50 MG PO DAILY Prescribed by: CHRISTOPHER HUYNH on 02/14/21 0025 Quetiapine Fumarate (Seroquel) 400 Mg Tablet, 400 MG PO HS, (Reported) Entered as Reported by: VALENTINE VICTORIA on 12/03/14 0857 Sucralfate (Sucralfate) 1 G Tablet, 1 G PO QID, (Reported) Entered as Reported by: DORA AUGUSTINE on 10/06/14 1043 Tramadol HCl (Tramadol HCl) 50 Mg Tablet, (Reported) Entered as Reported by: MARTHA JAVIER on 12/10/14 1517 [Latuda] , (Reported) Entered as Reported by: KATHIE ALANIS on 12/08/16 0747 Review of Systems Review of Systems Constitutional: see HPI EENTM: no symptoms reported Respiratory: other (A little labored breathing per the patient) Cardiovascular: no symptoms reported Gastrointestinal: no symptoms reported Genitourinary: no symptoms reported Musculoskeletal: no symptoms reported Skin: no symptoms reported Psychiatric/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: Depressed, Emotional Problems All Other Systems Reviewed Negative Unless Noted: Yes Past Hasafmw-Voetdx-Ivbzkv Hx Patient Social History Tobacco Use?: Yes Tobacco type used: Cigarettes Smoking Status: Current Everyday Smoker Use of E-Cig and/or Vaping dev: No Substance use?: No Alcohol Use?: No Pt feels they are or have been: No Immunizations Up To Date Tetanus Booster (TDap): More than 5yrs Seasonal Allergies Seasonal Allergies: No Past Medical History Surgery/Hospitalization HX: HYSTERECTOMY, TUBAL Surgeries: Yes Hysterectomy, Tubal Ligation Respiratory: No COPD Cardiac: No Hypertension 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: No 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 (COPD) 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 Sexually Transmitted Disease: No HIV/AIDS: No Genitourinary: No Gastrointestinal: No Gastroesophageal Reflux, Chronic Constipation Musculoskeletal: No Fibromyalgia Endocrine: No Hypothyroidsim HEENT: No Cataract Cancer: No Psychosocial: Yes Schizophrenia, Depression Integumentary: No Blood Disorders: No Adverse Reaction/Blood Tranf: No Family Medical History CANCER G8 SISTER (DOESN'T KNOW WHAT TYPE OF CANCER) Diabetes mellitus 19 MOTHER STROKE G8 BROTHER No Pertinent Family Hx Physical Exam Vital Signs Vital Signs - First Documented 02/13/21 21:58 Temp 36.6 Pulse 87 Resp 20 B/P (MAP) 148/82 (104) Pulse Ox 96 O2 Delivery Room Air Capillary Refill : Less Than 3 Seconds Height, Weight, BMI Height: 5'4.00" Weight: 175lbs. 0oz. [id number]; 159.00 BMI Method:Stated General Appearance: No Apparent Distress, WD/WN Eyes: Bilateral Eye Normal Inspection, Bilateral Eye PERRL, Bilateral Eye EOMI HEENT: PERRL/EOMI Neck: Normal Inspection Respiratory: No Accessory Muscle Use, No Respiratory Distress, Wheezing (Expiratory wheezing throughout) Cardiovascular: Regular Rate, Rhythm Gastrointestinal: Normal Bowel Sounds, Non Tender, Soft Extremity: Normal Capillary Refill, Normal Inspection, Normal Range of Motion, Non Tender, No Calf Tenderness Neurologic/Psychiatric: Alert, Oriented x3, No Motor/Sensory Deficits, Depressed Affect Progress/Results/Core Measures Suspected Sepsis SIRS Temperature: Pulse: 87 Respiratory Rate: 20 Laboratory Tests 02/13/21 22:50: White Blood Count 6.5 Blood Pressure 148 /82 Mean: 104 Laboratory Tests 02/13/21 22:50: Creatinine 0.86, Platelet Count 146, Total Bilirubin 0.3 Results/Orders Lab Results Laboratory Tests Test 02/13/21 22:50 02/13/21 22:54 Range/Units White Blood Count 6.5 4.3-11.0 10^3/uL Red Blood Count 4.07 3.80-5.11 10^6/uL Hemoglobin 13.4 11.5-16.0 g/dL Hematocrit 40 35-52 % Mean Corpuscular Volume 99 80-99 fL Mean Corpuscular Hemoglobin 33 25-34 pg Mean Corpuscular Hemoglobin Concent 33 32-36 g/dL Red Cell Distribution Width 12.3 10.0-14.5 % Platelet Count 146 130-400 10^3/uL Mean Platelet Volume 11.0 9.0-12.2 fL Immature Granulocyte % (Auto) 0 % Neutrophils (%) (Auto) 54 42-75 % Lymphocytes (%) (Auto) 35 12-44 % Monocytes (%) (Auto) 6 0-12 % Eosinophils (%) (Auto) 5 0-10 % Basophils (%) (Auto) 1 0-10 % Neutrophils # (Auto) 3.5 1.8-7.8 10^3/uL Lymphocytes # (Auto) 2.3 1.0-4.0 10^3/uL Monocytes # (Auto) 0.4 0.0-1.0 10^3/uL Eosinophils # (Auto) 0.3 0.0-0.3 10^3/uL Basophils # (Auto) 0.0 0.0-0.1 10^3/uL Immature Granulocyte # (Auto) 0.0 0.0-0.1 10^3/uL Sodium Level 141 135-145 MMOL/L Potassium Level 4.0 3.6-5.0 MMOL/L Chloride Level 102 98-107 MMOL/L Carbon Dioxide Level 27 21-32 MMOL/L Anion Gap 12 5-14 MMOL/L Blood Urea Nitrogen 14 7-18 MG/DL Creatinine 0.86 0.60-1.30 MG/DL Estimat Glomerular Filtration Rate 67 BUN/Creatinine Ratio 16 Glucose Level 93 70-105 MG/DL Calcium Level 9.6 8.5-10.1 MG/DL Corrected Calcium 9.7 8.5-10.1 MG/DL Magnesium Level 1.9 1.6-2.4 MG/DL Total Bilirubin 0.3 0.1-1.0 MG/DL Aspartate Amino Transf (AST/SGOT) 20 5-34 U/L Alanine Aminotransferase (ALT/SGPT) 18 0-55 U/L Alkaline Phosphatase 60 40-136 U/L Total Protein 6.5 6.4-8.2 GM/DL Albumin 3.9 3.2-4.5 GM/DL Urine Color YELLOW Urine Clarity CLEAR Urine pH 7.0 5-9 Urine Specific [place] 1.010 L 1.016-1.022 Urine Protein NEGATIVE NEGATIVE Urine Glucose (UA) NEGATIVE NEGATIVE Urine Ketones NEGATIVE NEGATIVE Urine Nitrite NEGATIVE NEGATIVE Urine Bilirubin NEGATIVE NEGATIVE Urine Urobilinogen 0.2 < = 1.0 MG/DL Urine Leukocyte Esterase NEGATIVE NEGATIVE Urine RBC (Auto) NEGATIVE NEGATIVE Urine RBC NONE /HPF Urine WBC NONE /HPF Urine Squamous Epithelial Cells 0-2 /HPF Urine Crystals NONE /LPF Urine Bacteria TRACE /HPF Urine Casts NONE /LPF Urine Mucus NEGATIVE /LPF Urine Culture Indicated NO My Orders Orders - CHRISTOPHER HUYNH MD Chest 1 View, Ap/Pa Only (02/13/21 22:46) Albuterol Pre-Mix Nebs (Rt) (Proventil (02/13/21 23:00) Svn Small Volume Nebulizer (02/13/21 22:46) Prednisone Tablet (Deltasone Tablet) (02/14/21 00:30) Medications Given in ED Current Medications Medications Dose Ordered Sig/Patricia Route Start Time Stop Time Status Last Admin Dose Admin Albuterol Sulfate 2.5 mg ONCE ONCE INH 02/13/21 23:00 02/13/21 23:01 DC 02/13/21 23:04 2.5 MG Prednisone 50 mg ONCE ONCE PO 02/14/21 00:30 02/14/21 00:31 DC 02/14/21 00:41 50 MG Vital Signs/I&O 02/13/21 02/13/21 02/14/21 21:58 21:58 01:07 Temp 36.6 Pulse 87 76 Resp 20 18 B/P (MAP) 148/82 (104) 139/60 Pulse Ox 96 96 O2 Delivery Room Air Room Air Room Air Capillary Refill : Less Than 3 Seconds Blood Pressure Mean: 104 Progress Note : Time: 00:24 Progress Note Patient reexamined after breathing treatment, labs and x-ray. Noted that she is laying on her left side comfortably with oxygen saturations of 92/93%. She still has a very minimal expiratory wheeze throughout. Labs have been reviewed and are within normal limits. No evidence of infectious process on the labs, chest x-ray is clear without infiltrate, effusion or other acute pathology. When she talks and is interactive her sats come up to 95/96%. She demonstrates no increased work of breathing or respiratory distress. Will have the patient do breathing treatments at the halfway every 4-6 hours as needed. Steroids for home, 50 mg once daily for 5 days. First dose given here today. Patient has no clinical or objective findings to warrant further studies from the emergency department. I do not suspect that she has Covid. I have discussed the plan with the patient, she is agreeable. All questions are sought and answered. Patient is stable for discharge. Departure Impression Primary Impression: Reactive airway disease with acute exacerbation Qualified Codes: J45.21 - Mild intermittent asthma with (acute) exacerbation Disposition: HOME, SELF-CARE Condition: Stable Departure-Patient Inst. Decision time for Depature: 00:24 Referrals: JOHN FRANK DO (PCP/Family) Primary Care Physician Patient Instructions: How to Use a Metered Dose Inhaler ED Add. Discharge Instructions: I have sent a prescription for steroids and add an albuterol inhaler to your pharmacy. Please use these as directed. The albuterol needs to be used 2 puffs every 4-6 hours as needed for shortness of breath. Prednisone 50 mg once daily starting on Monday. You have been given a dose this morning. Please come back to the emergency room if you have any return of shortness of breath/respiratory distress, fever, productive cough or any other emergent concerning symptoms. Please follow-up with your primary care doctor. Scripts Albuterol Sulfate (PROAIR HFA) 1 Puff Puff 2 PUFF IH Q4H PRN for wheezing, #1 EA 1 PUFF = 90 MCG Prov: CHRISTOPHER HUYNH MD 02/14/21 Prednisone (Prednisone) 50 Mg Tab 50 MG PO DAILY for 4 Days, #4 TAB Prov: CHRISTOPHER HUYNH MD 02/14/21 CHRISTOPHER HUYNH MD Feb 13, 2021 22:47
[2021-02-13 22:59] LABS: BILIRUBIN,URINE NEGATIVE (NEGATIVE); CLARITY,URINE CLEAR; COLOR,URINE YELLOW; GLUCOSE, URINE (UA) NEGATIVE (NEGATIVE); KETONES,URINE NEGATIVE (NEGATIVE); LEUKOCYTE ESTERASE ,URINE NEGATIVE (NEGATIVE); NITRITE,URINE NEGATIVE (NEGATIVE); PROTEIN,URINE NEGATIVE (NEGATIVE)
[2021-02-13] MEDS ORDERED: RT-ALBUTEROL SULF 2.5 MG/3 ML PRE-MIX VIAL INH ONE (23:00)
[2021-02-13 23:10] LABS: BASOPHILS % (AUTO) 1 % (0-10); EOSINOPHILS # (AUTO) 0.3 10^3/uL (0.0-0.3); EOSINOPHILS % (AUTO) 5 % (0-10); HEMATOCRIT 40 % (35-52); HEMOGLOBIN 13.4 g/dL (11.5-16.0); LYMPHOCYTES # (AUTO) 2.3 10^3/uL (1.0-4.0); LYMPHOCYTES % (AUTO) 35 % (12-44); MEAN CORPUSCULAR HEMOGLOBIN 33 pg (25-34); MEAN CORPUSCULAR HGB CONC 33 g/dL (32-36); MEAN CORPUSCULAR VOLUME 99 fL (80-99); MONOCYTES # (AUTO) 0.4 10^3/uL (0.0-1.0); MONOCYTES % (AUTO) 6 % (0-12); NEUTROPHILS # (AUTO) 3.5 10^3/uL (1.8-7.8); NEUTROPHILS % (AUTO) 54 % (42-75); PLATELET COUNT 146 10^3/uL (130-400); WHITE BLOOD COUNT 6.5 10^3/uL (4.3-11.0)
[2021-02-13 23:11] LABS: BACTERIA,URINE TRACE /HPF; SQUAMOUS EPITHELIAL CELL,UR 0-2 /HPF
[2021-02-13 23:14] LABS: ALBUMIN 3.9 GM/DL (3.2-4.5)
[2021-02-13 23:15] LABS: CALCIUM 9.6 MG/DL (8.5-10.1)
[2021-02-13 23:16] LABS: TOTAL PROTEIN 6.5 GM/DL (6.4-8.2)
[2021-02-13 23:18] LABS: BILIRUBIN,TOTAL 0.3 MG/DL (0.1-1.0)
[2021-02-13 23:20] LABS: CREATININE SERUM 0.86 MG/DL (0.60-1.30)
[2021-02-13 23:23] LABS: MAGNESIUM 1.9 MG/DL (1.6-2.4)
--- NOTE | 2021-02-13 23:51 | Diagnostic Imaging Report ---
EXAMINATION: Portable erect AP chest at 1102 PM INDICATION: Shortness of breath The heart size is within normal limits and stable when compared to 11/08/2020. The previous study did show vague areas of low density overlying each lung base. Those findings are again evident and do not seem to have changed significantly. I suspect that they are related to overlying breast/chest tissue and not to pneumonia/atelectasis. The lungs seem generally clear. The mediastinum is not widened. The osseous structures are intact. IMPRESSION: There is no evidence for active disease. Dictated by: Dictated on workstation # [id number]
[2021-02-14] MEDS ORDERED: RT-ALBUINH IH (00:25)
[2021-02-14] MEDS ORDERED: PRD50T PO (00:25)
[2021-02-14] MEDS ORDERED: predniSONE 20 MG TAB PO ONE (00:30)
[2021-02-14 01:07] VITALS: BP 139/60
== END 2021-02-14 01:08 | disposition home or self-care (01) ==
LOC: EDUNIT# 21:54 → ER 21:57
DX: J45.901 Unspecified asthma with (acute) exacerbation (principal); J44.9 Chronic obstructive pulmonary disease, unspecified; I10 Essential (primary) hypertension; K21.9 Gastro-esophageal reflux disease without esophagitis; F20.9 Schizophrenia, unspecified; F32.9 Major depressive disorder, single episode, unspecified; E03.9 Hypothyroidism, unspecified; F17.210 Nicotine dependence, cigarettes, uncomplicated; Z79.899 Other long term (current) drug therapy; Z79.890 Hormone replacement therapy
CPT/HCPCS: 36415; 71045; 80053; 81000; 83735; 85025